=== PATIENT | female | born 1990 | race Caucasian/White ===

== ENCOUNTER 2023-10-26 19:52 | Outpatient (REF) | payer BC, SELFPAY ==
[2023-10-30 11:08] LABS: Age Gdln ACOG Testing Note (.); HPV Aptima Negative (Negative); IGP, Aptima HPV, rfx 16/18,45 Note (.)
== END 2023-10-26 19:53 | disposition home or self-care (01) ==
LOC: LAB 19:52
PROVIDERS: Visit Provider Obstetrics & Gynecology
DX: Z01.419 Encounter for gynecological examination (general) (routine) without abnormal findings (principal)
CPT/HCPCS: 87624; G0145

== ENCOUNTER 2023-11-10 08:26 | Outpatient (OUT) | payer BC, SELFPAY ==
--- NOTE | 2023-11-10 08:29 | US_ITS ---
The [address] [address] Patient Name: CINTHYA MYERS MRN: [id number] date: 1990 Sex: F Assigned Patient Location: [facility] Current Patient Location: [facility] Accession/Order Number: [id number] Exam Date: 11/10/2023 08:30 Report Date: 11/10/2023 09:14 At the request of: LOUIS BACON Procedure: US pelvis w/ transvaginal EXAMINATION: US pelvis w/ transvaginal HISTORY: MENORRHAGIA WITH IRREGULAR CYCLES COMPARISON: No relevant comparison available. FINDINGS: Findings transabdominal and transvaginal images The is normal in size and contour, anteverted, anteflexed uterus measures 11.2 x 4.0 x 5.1 cm. Mildly heterogeneous echotexture with no focal mass. The 2 measures 5 mm, normal. The right ovary is normal measuring 2.0 x 1.7 x 1.4 cm. Normal color Doppler flow. The left ovary measures 3.7 x 2.4 x 2.9 cm. Normal color and Doppler flow. Area of anechoic echogenicity measuring 2.4 x 2.3 x 1.7 cm, simple cyst. No free fluid US/US pelvis w/ transvaginal IMPRESSION: 2.4 cm left ovarian simple cyst Electronically authenticated by: JONA GERARD Date: 11/10/2023 09:14
== END 2023-11-10 08:27 | disposition home or self-care (01) ==
LOC: NOMS 08:26
PROVIDERS: Visit Provider Obstetrics & Gynecology
DX: N92.1 Excessive and frequent menstruation with irregular cycle (principal); G43.821 Menstrual migraine, not intractable, with status migrainosus; N83.292 Other ovarian cyst, left side
CPT/HCPCS: 76830; 76856

== ENCOUNTER 2023-11-25 09:38 | Outpatient (REF) | payer BC, SELFPAY | END 2023-11-25 09:39 | disposition home or self-care (01) | LOC: LAB 09:38 | PROVIDERS: Visit Provider Obstetrics & Gynecology | DX: N92.1 Excessive and frequent menstruation with irregular cycle (principal) | CPT/HCPCS: 88305 ==

== ENCOUNTER 2023-12-10 09:59 | Outpatient (OUT) | payer BC, SELFPAY ==
--- OUTSIDE RECORDS SUMMARY | 2023-12-10 10:24 | XMS_ITS | CCD ---
Author Organization [facility] Care Team Providers Care Energy Auditor Name Role Phone Henrik Vidal Attending Unavailable [employer] IMPORT EXPORT MANAGER - Iain BURDICK Primary Care Prov ider MEGAN, DR RESENDIZ Admitting Unavailable MEGAN, DR RESENDIZ Attending Unavailable [facility], DR CORTES Primary Care Unavailable MEGAN, DR RESENDIZ Consulting Unavailable MD Amor Judd Attending Provider MD Rhonda Limon Primary Care Provider MD Rhonda Limon Primary Care Provider MD Amor Judd Attending Provider [phone] Iain Velarde DNP Primary Care Provider IAIN VELARDE Primary Care Unavailable IAIN MARQUEZ Referring Unavailable CLINIAIN BARRIENTOS Primary Care Unavailable IAIN MARQUEZ Referring Unavailable IAIN MARQUEZ Referring Unavailable CLINIAIN BARRIENTOS Primary Care Unavailable Amor Judd Admitting Unavailable Rhonda Limon Primary Care Unavailable Amor Judd Attending Unavailable Amor Judd Attending Unavailable Amor Judd Admitting Unavailable Rhonda Limon Primary Care Unavailable Amor Judd Attending Unavailable Amor Judd Admitting Unavailable Louis Krishna Attending Unavailable Louis Krishna Admitting Unavailable LOUIS KRISHNA Attending Unavailable LOUIS KRISHNA Attending Unavailable LOUIS KRISHNA Attending Unavailable Louis Krishna Attending Provider Allergies Allergy Classification Reported Allergen(s) Allergy Type Date of Onset Reaction(s) Facility (2 sources) lemon allergenic extract Drug Allergy 07-22-2016 [facility] (1 source) lemon oil Drug Allergy 07-22-2016 [facility] Repository Medications Current Medications Medication Drug Class(es) Dates Sig (Normalized) Sig (Original) Ethinyl Estradiol / Ferrous fumarate / Norethindrone (1 source) Estrogen Start: 11-27-202208/14 1-20 MG-MCG per tablet Ethinyl Estradiol / norgestimate (1 source) Progestin, Estrogen Start: 12-17-2018 take 1 tablet by mouth once daily TRI-LINYAH 0.18/0.215/0.25 MG-35 MCG TABS Take 1 tablet by mouth daily 11 12/17/2018 Active fluocinonide 0.5 mg/ml topical solution (1 source) Corticosteroid Start: 10-28-2022 fluocinonide (LIDEX) 0.05 % external solution APPLY to scalp topically TWICE DAILY 0 10/28/2022 Active ketoconazole 20 mg/ml medicated shampoo (1 source) Azole Antifungal Start: 10-28-2022 ketoconazole (NIZORAL) 2 % shampoo lather on wet hair, leave on 5 (FIVE) minutes, rinse topically 2 (TWO) to 3 (THREE) times a week for 30 days 0 10/28/2022 Active Problems Active Problems Problem Classification Problem Date Documented Date Episodic/Chronic Other aftercare (2 sources) Other fdc (current) drug therapy; Translations: [Other terminal worker (current) drug therapy] Onset: 09-08-2023 Episodic Other inflammatory condition of skin (1 source) Plaque psoriasis; Translations: [Psoriasis vulgaris] Onset: 02-04-2023 02-04-2023 Chronic Other inflammatory condition of skin (2 sources) Psoriasis, unspecified; Translations: [Psoriasis, unspecified] Onset: 09-08-2023 Chronic Other nervous system disorders (1 source) Paresthesia; Translations: [Paresthesia of skin] Episodic Other nutritional; endocrine; and metabolic disorders (1 source) Weight gain; Translations: [Abnormal weight gain] Episodic Other screening for suspected conditions (not mental disorders or infectious disease) (5 sources) Patient encounter status; Translations: [Encounter for screening for cardiovascular disorders] Onset: 07-22-2022 Episodic Unclassified (1 source) Pain in right hand; Translations: [Pain in right hand] Onset: 03-01-2023 Past or Other Problems Problem Classification Problem Date Documented Da te Episodic/Chronic Immunizations and screening for infectious disease (1 source) Raised antibody titer; Translations: [Raised antibody titer] Onset: 06-21-2023 Episodic Nonmalignant breast conditions (2 sources) Pain of breast; Translations: [Mastodynia] Onset: 03-04-2015 03-04-2015 Episodic Other non-traumatic joint disorders (1 source) Pain in unspecified joint; Translations: [Pain in unspecified joint] Onset: 03-01-2023 Episodic Results Test Name Value Interpretation Reference Range Facility [facility] 11-25-2023 L Specimen: [id number] Received: 11/26/23 Status: RYAN Guillen Num: [id number] Spec Type: Surgical Subm Dr: Louis Krishna Tissues: A Endometrium - Biopsy (ENDOMETRIUM BX) Procedures: HE/2, Gross/Micro L4 Age/ Patient Sex Location Account Attending Physician Cinthya Myers 32/F [place] [id number] Louis Krishna SPEC NUM: [id number] RECD: 11/26/23 STATUS: RYAN GUILLEN NUM: [id number] CHLOE: 11/25/[address]: Louis Krishna ENTERED: 11/26/[address] [facility] [address]: Amelia,Lab SPEC TYPE: Surgical DEPT: LINDEN POLANCO ORDERED: HE/2, Gross/Micro L4 ORDERED: HE/2, Gross/Micro L4 Pathological Diagnosis Endometrial biopsy: -Multiple strips of slightly desynchronized endometrium demonstrating small tubular glands with occasional mitotic activity and occasional subnuclear vacuoles, otherwise without any hyperplasia or atypia identified Gross Description Received in formalin, labeled with the patient's name, date of and endometrial BX are multiple colon tissue fragments admixed with mucus measuring in aggregate 2.2 x 0.7 x 0.2 cm, entirely submitted in A1. Clinical history: Menorrhagia with irregular cycles. N92.1 TW CPT Codes 15596 Specimen: [id number] Received: 11/26/23-1256 Status: RYAN Guillen Num: [id number] Spec Type: Surgical Subm Dr: Louis Krishna Tissues: A Endometrium - Biopsy (ENDOMETRIUM BX) Procedures: HE/2, Gross/Micro L4 Patient: Cinthya Myers [id number] (Continued) Signed (signature on file) Jose Juan House MD 11/29/232048 Normal [facility] CBC with Diffon 11-11-2023 Abs. Basophil 0.03 k/uL Normal 0.00-0.20 [facility] Comment on above: Performed By: #### C REG, CDP, LIVP, SED #### [facility] [address] [id number] Leasing Machine Tender: Dev Morley MD Abs.Imm.Granulocyte 0.02 k/uL Normal 0.00-0.30 [facility] Comment on above: Performed By: #### C REG, CDP, LIVP, SED #### [facility] [address] [place] [address] Leasing Machine Tender: Dev Morley MD Abs.Neutrophil (Seg) 6.72 k/uL Normal 2.5-7.0 [facility] Comment on above: Performed By: #### C REG, CDP, LIVP, SED #### [facility] [address] [place] [address] Leasing Machine Tender: Dev Morley MD Basophils/100 WBC (Bld) 0 % Normal 0-2 [facility] Comment on above: Performed By: #### C REG, CDP, LIVP, SED #### [facility] [address] [place] [address] Leasing Machine Tender: Dev Morley MD Eosinophils (Bld) [#/Vol] 0.13 10*3/uL Normal 0.00-0.40 [facility] Comment on above: Performed By: #### C REG, CDP, LIVP, SED #### [facility] [address] [id number] Leasing Machine Tender: Dev Morley MD Eosinophils/100 WBC (Bld) 1 % Normal 0-5 [facility] Comment on above: Performed By: #### C REG, CDP, LIVP, SED #### [facility] [address] [place] [address] Leasing Machine Tender: Dev Morley MD Erythrocyte distribution width (RBC) [Ratio] 12.4 % Normal 12.1-15.2 [facility] Comment on above: Performed By: #### C REG, CDP, LIVP, SED #### [facility] [address] [place] [address] Leasing Machine Tender: Dev Morley MD Hematocrit (Bld) [Volume fraction] 42.4 % Normal 36.0-46.0 [facility] Comment on above: Performed By: #### C REG, CDP, LIVP, SED #### [facility] [address] [id number] Leasing Machine Tender: Dev Morley MD Hemoglobin (Bld) [Mass/Vol] 14.4 g/dL Normal 12.0-16.0 [facility] Comment on above: Performed By: #### C REG, CDP, LIVP, SED #### [facility] [address] [place] [address] Leasing Machine Tender: Dev Morley MD Immature granulocytes/100 WBC (Bld) 0 % Normal 0-5 [facility] Comment on above: Performed By: #### C REG, CDP, LIVP, SED #### [facility] [address] [id number] Leasing Machine Tender: Dev Morley MD Lymphocytes (Bld) [#/Vol] 1.94 10*3/uL Normal 1.00-4.80 [facility] Comment on above: Performed By: #### C REG, CDP, LIVP, SED #### [facility] [address] [id number] Leasing Machine Tender: Dev Morley MD Lymphocytes/100 WBC (Bld) 21 % Normal 15-40 [facility] Comment on above: Performed By: #### C REG, CDP, LIVP, SED #### [facility] [address] [place] [address] Leasing Machine Tender: Dev Morley MD MCH (RBC) [Entitic mass] 28.3 pg Normal 26.0-34.0 [facility] Comment on above: Performed By: #### C REG, CDP, LIVP, SED #### [facility] [address] [place] [address] Leasing Machine Tender: Dev Morley MD MCHC (RBC) [Mass/Vol] 34.0 g/dL Normal 31.0-37.0 [facility] Comment on above: Performed By: #### C REG, CDP, LIVP, SED #### [facility] [address] [place] [address] Leasing Machine Tender: Dev Morley MD MCV (RBC) [Entitic vol] 83.3 fL Normal 80.0-100.0 [facility] Comment on above: Performed By: #### C REG, CDP, LIVP, SED #### [facility] [address] [phone] Leasing Machine Tender: Dev Morley MD Monocytes (Bld) [#/Vol] 0.50 10*3/uL Normal 0.00-1.00 [facility] Comment on above: Performed By: #### C REG, CDP, LIVP, SED #### [facility] [address] [place] [address] Leasing Machine Tender: Dev Morley MD Monocytes/100 WBC (Bld) 5 % Normal 4-8 [facility] Comment on above: Performed By: #### C REG, CDP, LIVP, SED #### [facility] [address] [id number] Leasing Machine Tender: Dev Morley MD Neutrophil (Seg) 73 % Normal 47-75 [facility] Comment on above: Performed By: #### C REG, CDP, LIVP, SED #### [facility] [address] [place] [address] Leasing Machine Tender: Dev Morley MD Platelet mean volume (Bld) [Entitic vol] 9.6 fL Normal 6.0-12.0 [facility] Comment on above: Performed By: #### C REG, CDP, LIVP, SED #### [facility] [address] [place] [address] Leasing Machine Tender: Dev Morley MD Platelets (Bld) [#/Vol] 257 10*3/uL Normal 140-450 [facility] Comment on above: Performed By: #### C REG, CDP, LIVP, SED #### [facility] [address] [place] [address] Leasing Machine Tender: Dev Morley MD RBC (Bld) [#/Vol] 5.09 10*6/uL Normal 4.00-5.20 [facility] Comment on above: Performed By: #### C REG, CDP, LIVP, SED #### [facility] [address] [place] [address] Leasing Machine Tender: Dev Morley MD WBC (Bld) [#/Vol] 9.3 10*3/uL Normal 3.5-11.0 [facility] Comment on above: Performed By: #### C REG, CDP, LIVP, SED #### [facility] [address] [place] [address] Leasing Machine Tender: Dev Morley MD Creatinine w/GFRon 4 Creatinine [Mass/Vol] 0.9 mg/dL Normal 0.5-0.9 [facility] Comment on above: Performed By: #### C REG, CDP, LIVP, SED #### [facility] [address] [place] [address] Leasing Machine Tender: Dev Morley MD GFR/1.73 sq M.predicted among non-blacks MDRD (S/P/Bld) [Vol rate/Area] 88 mL/min/{1.73_m2} Normal >60 [facility] Comment on above: Result Comment: These results are not intended for use in patients <18 years of age. eGFR results are calculated without a race factor using the 2020 CKD-EPI equation. Careful clinical correlation is recommended, particularly when comparing to results calculated using previous equations. The CKD-EPI equation is less accurate in patients with extremes of muscle mass, extra-renal metabolism of creatine, excessive creatine ingestion, or following therapy that affects renal tubular secretion. Performed By: #### C REG, CDP, LIVP, SED #### [facility] [address] [place] [address] Leasing Machine Tender: Dev Morley MD Liver Profileon 11-11-2023 Albumin [Mass/Vol] 4.1 g/dL Normal 3.5-5.2 [facility] Comment on above: Performed By: #### C REG, CDP, LIVP, SED #### [facility] [address] [place] [address] Leasing Machine Tender: Dev Morley MD Alkaline Phos 89 U/L Normal 35-104 [facility] Comment on above: Performed By: #### C REG, CDP, LIVP, SED #### [facility] [address] [place] [address] Leasing Machine Tender: Dev Morley MD ALT [Catalytic activity/Vol] 19 U/L Normal 5-33 [facility] Comment on above: Performed By: #### C REG, CDP, LIVP, SED #### [facility] [address] [place] [address] Leasing Machine Tender: Dev Morley MD AST [Catalytic activity/Vol] 16 U/L Normal <32 [facility] Comment on above: Performed By: #### C REG, CDP, LIVP, SED #### [facility] [address] [place] [address] Leasing Machine Tender: Dev Morley MD Bilirubin [Mass/Vol] 0.3 mg/dL Normal 0.3-1.2 [facility] Comment on above: Performed By: #### C REG, CDP, LIVP, SED #### [facility] [address] [place] [address] Leasing Machine Tender: Dev Morley MD Bilirubin, Indirect Can not be calculated Normal 0.0-1.0 [facility] Comment on above: Performed By: #### C REG, CDP, LIVP, SED #### [facility] [address] [place] [id number] Leasing Machine Tender: Dev Morley MD Bilirubin.indirect [Mass/Vol] mg/dL Normal <0.3 [facility] Comment on above: Performed By: #### C REG, CDP, LIVP, SED #### [facility] [address] [place] [address] Leasing Machine Tender: Dev Morley MD Protein [Mass/Vol] 7.5 g/dL Normal 6.4-8.3 [facility] Comment on above: Performed By: #### C REG, CDP, LIVP, SED #### [facility] [address] [place] [address] Leasing Machine Tender: Dev Morley MD Sedimentation Rateon 024 Sedimentation Rate 31 mm/Hr High 0-20 [facility] Comment on above: Performed By: #### C REG, CDP, LIVP, SED #### [facility] [address] [phone] Leasing Machine Tender: Dev Morley MD CBC with Diffon 09-23-2023 Abs. Basophil 0.02 k/uL Normal 0.00-0.20 [facility] Comment on above: Performed By: #### L IVP, SED, CREG, CDP #### [facility] [address] [phone] Leasing Machine Tender: Dev Morley MD Abs.Imm.Granulocyte 0.01 k/uL Normal 0.00-0.30 [facility] Comment on above: Performed By: #### L IVP, SED, CREG, CDP #### [facility] [address] [phone] Leasing Machine Tender: Dev Morley MD Abs.Neutrophil (Seg) 2.96 k/uL Normal 2.5-7.0 [facility] Comment on above: Performed By: #### L IVP, SED, CREG, CDP #### [facility] [address] [place] [address] Leasing Machine Tender: Dev Morley MD Basophils/100 WBC (Bld) 0 % Normal 0-2 [facility] Comment on above: Performed By: #### L IVP, SED, CREG, CDP #### [facility] [address] [phone] Leasing Machine Tender: Dev Morley MD Eosinophils (Bld) [#/Vol] 0.12 10*3/uL Normal 0.00-0.40 [facility] Comment on above: Performed By: #### L IVP, SED, CREG, CDP #### [facility] [address] [phone] Leasing Machine Tender: Dev Morley MD Eosinophils/100 WBC (Bld) 2 % Normal 0-5 [facility] Comment on above: Performed By: #### L IVP, SED, CREG, CDP #### [facility] [address] [phone] Leasing Machine Tender: Dev Morley MD Erythrocyte distribution width (RBC) [Ratio] 11.8 % Low 12.1-15.2 [facility] Comment on above: Performed By: #### L IVP, SED, CREG, CDP #### [facility] [address] [phone] Leasing Machine Tender: Dev Morley MD Hematocrit (Bld) [Volume fraction] 42.6 % Normal 36.0-46.0 [facility] Comment on above: Performed By: #### L IVP, SED, CREG, CDP #### [facility] [address] [phone] Leasing Machine Tender: Dev Morley MD Hemoglobin (Bld) [Mass/Vol] 14.7 g/dL Normal 12.0-16.0 [facility] Comment on above: Performed By: #### L IVP, SED, CREG, CDP #### [facility] [address] [place], [place] [phone] Leasing Machine Tender: Dev Morley MD Immature granulocytes/100 WBC (Bld) 0 % Normal 0-5 [facility] Comment on above: Performed By: #### L IVP, SED, CREG, CDP #### [facility] [address] [place] [address] Leasing Machine Tender: Dev Morley MD Lymphocytes (Bld) [#/Vol] 1.85 10*3/uL Normal 1.00-4.80 [facility] Comment on above: Performed By: #### L IVP, SED, CREG, CDP #### [facility] [address] [place] [address] Leasing Machine Tender: Dev Morley MD Lymphocytes/100 WBC (Bld) 35 % Normal 15-40 [facility] Comment on above: Performed By: #### L IVP, SED, CREG, CDP #### [facility] [address] [place] [address] Leasing Machine Tender: Dev Morley MD MCH (RBC) [Entitic mass] 28.9 pg Normal 26.0-34.0 [facility] Comment on above: Performed By: #### L IVP, SED, CREG, CDP #### [facility] [address] [phone] Leasing Machine Tender: Dev Morley MD MCHC (RBC) [Mass/Vol] 34.5 g/dL Normal 31.0-37.0 [facility] Comment on above: Performed By: #### L IVP, SED, CREG, CDP #### [facility] [address] [place] [address] Leasing Machine Tender: Dev Morley MD MCV (RBC) [Entitic vol] 83.7 fL Normal 80.0-100.0 [facility] Comment on above: Performed By: #### L IVP, SED, CREG, CDP #### [facility] [address] [place], [place] [id number] Leasing Machine Tender: Dev Morley MD Monocytes (Bld) [#/Vol] 0.41 10*3/uL Normal 0.00-1.00 [facility] Comment on above: Performed By: #### L IVP, SED, CREG, CDP #### [facility] [address] [place] [address] Leasing Machine Tender: Dev Morley MD Monocytes/100 WBC (Bld) 8 % Normal 4-8 [facility] Comment on above: Performed By: #### L IVP, SED, CREG, CDP #### [facility] [address] [place] [address] Leasing Machine Tender: Dev Morley MD Neutrophil (Seg) 55 % Normal 47-75 [facility] Comment on above: Performed By: #### L IVP, SED, CREG, CDP #### [facility] [address] [place] [address] Leasing Machine Tender: Dev Morley MD Platelet mean volume (Bld) [Entitic vol] 9.1 fL Normal 6.0-12.0 [facility] Comment on above: Performed By: #### L IVP, SED, CREG, CDP #### [facility] [address] [place] [address] Leasing Machine Tender: Dev Morley MD Platelets (Bld) [#/Vol] 228 10*3/uL Normal 140-450 [facility] Comment on above: Performed By: #### L IVP, SED, CREG, CDP #### [facility] [address] [facility] [place] [place] [address] Leasing Machine Tender: Dev Morley MD RBC (Bld) [#/Vol] 5.09 10*6/uL Normal 4.00-5.20 [facility] Comment on above: Performed By: #### L IVP, SED, CREG, CDP #### [facility] [address] [place] [address] Leasing Machine Tender: Dev Morley MD WBC (Bld) [#/Vol] 5.4 10*3/uL Normal 3.5-11.0 [facility] Comment on above: Performed By: #### L IVP, SED, CREG, CDP #### [facility] [address] [place] [address] Leasing Machine Tender: Dev Morley MD Creatinine w/GFRon Creatinine [Mass/Vol] 0.8 mg/dL Normal 0.5-0.9 [facility] Comment on above: Performed By: #### C REG, LIVP, SED, CDP #### [facility] [address] [place] [address] Leasing Machine Tender: Dev Morley MD GFR/1.73 sq M.predicted among non-blacks MDRD (S/P/Bld) [Vol rate/Area] mL/min/{1.73_m2} Normal >60 [facility] Comment on above: Result Comment: These results are not intended for use in patients <18 years of age. eGFR results are calculated without a race factor using the 2020 CKD-EPI equation. Careful clinical correlation is recommended, particularly when comparing to results calculated using previous equations. The CKD-EPI equation is less accurate in patients with extremes of muscle mass, extra-renal metabolism of creatine, excessive creatine ingestion, or following therapy that affects renal tubular secretion. Performed By: #### C REG, LIVP, SED, CDP #### [facility] [address] [place] [address] Leasing Machine Tender: Dev Morley MD Liver Profileon 09-23-2023 Albumin [Mass/Vol] 4.0 g/dL Normal 3.5-5.2 [facility] Comment on above: Performed By: #### C REG, LIVP, SED, CDP #### [facility] [address] [place] [address] Leasing Machine Tender: Dev Morley MD Alkaline Phos 92 U/L Normal 35-104 [facility] Comment on above: Performed By: #### C REG, LIVP, SED, CDP #### [facility] [address] [place] [address] Leasing Machine Tender: Dev Morley MD ALT [Catalytic activity/Vol] 32 U/L Normal 5-33 [facility] Comment on above: Performed By: #### C REG, LIVP, SED, CDP #### [facility] [address] [place], [place] [id number] Leasing Machine Tender: Dev Morley MD AST [Catalytic activity/Vol] 25 U/L Normal <32 [facility] Comment on above: Performed By: #### C REG, LIVP, SED, CDP #### [facility] [address] [place], [place] [phone] Leasing Machine Tender: Dev Morley MD Bilirubin [Mass/Vol] 0.2 mg/dL Low 0.3-1.2 [facility] Comment on above: Performed By: #### C REG, LIVP, SED, CDP #### [facility] [address] [place], [place] [phone] Leasing Machine Tender: Dev Morley MD Bilirubin, Indirect Can not be calculated Normal 0.0-1.0 [facility] Comment on above: Performed By: #### C REG, LIVP, SED, CDP #### [facility] [address] [place], [place] [phone] Leasing Machine Tender: Dev Morley MD Bilirubin.indirect [Mass/Vol] mg/dL Normal <0.3 [facility] Comment on above: Performed By: #### C REG, LIVP, SED, CDP #### [facility] [address] [place] [address] Leasing Machine Tender: eDv Morley MD Protein [Mass/Vol] 7.3 g/dL Normal 6.4-8.3 [facility] Comment on above: Performed By: #### C REG, LIVP, SED, CDP #### [facility] [address] [place] [address] Leasing Machine Tender: Dev Morley MD Sedimentation Rateon 024 Sedimentation Rate 16 mm/Hr Normal 0-20 [facility] Comment on above: Performed By: #### L IVP, SED, CREG, CDP #### [facility] [address] [phone] Leasing Machine Tender: Dev Morley MD CBC with Auto Differentialon 09-08-2023 Basophils (Bld) [#/Vol] 0.02 10*3/uL [facility] Basophils/100 WBC (Bld) 0 % 0 - 2 % B [facility] Eosinophils (Bld) [#/Vol] 0.11 10*3/uL [facility] Eosinophils/100 WBC (Bld) 1 % 0 - 5 % [facility] Erythrocyte distribution width (RBC) [Ratio] 12.1 % 12.1 - 15.2 % [facility] Hematocrit (Bld) [Volume fraction] 42.6 % 36.0 - 46.0 % [facility] Hemoglobin (Bld) [Mass/Vol] 14.6 g/dL 12.0 - 16.0 g/dL [facility] Immature granulocytes (Bld) [#/Vol] 0.00 10*3/uL [facility] Immature granulocytes/100 WBC (Bld) 0 % 0 - 5 % [facility] Lymphocytes/100 WBC (Bld) 31 % 15 - 40 % [facility] Lymphocytes/100 WBC (Bld) 2.56 % [facility] MCH (RBC) [Entitic mass] 29.3 pg 26. 0 - 34.0 pg [facility] MCHC (RBC) [Mass/Vol] 34.3 g/dL 31.0 - 37.0 g/dL [facility] MCV (RBC) [Entitic vol] 85.5 fL 80.0 - 100.0 fL [facility] Monocytes/100 WBC (Bld) 6 % 4 - 8 % [facility] Monocytes/100 WBC (Bld) 0.49 % [facility] Neutrophils/100 WBC (Bld) 62 % 47 - 75 % [facility] Platelet mean volume (Bld) [Entitic vol] 9.2 fL 6.0 - 12.0 fL [facility] Platelets (Bld) [#/Vol] 248 10*3/uL [facility] [facility] RBC (Bld) [#/Vol] 4.98 10*6/uL 4.00 - 5.2 0 m/uL [facility] Segmented neutrophils/100 WBC (Bld) 5.18 % [facility] WBC other (Bld) [#/Vol] 8.4 [facility] CBC with Diffon 09-08-2023 Abs. Basophil 0.02 k/uL Normal 0.00-0.20 [facility] Comment on above: Performed By: #### C REG, LIVP, SED, CDP #### [facility] [address] [place] [address] Leasing Machine Tender: Dev Morley MD Abs.Imm.Granulocyte 0.00 k/uL Normal 0.00-0.30 [facility] Comment on above: Performed By: #### C REG, LIVP, SED, CDP #### [facility] [address] [place] [id number] Leasing Machine Tender: Dev Morley MD Abs.Neutrophil (Seg) 5.18 k/uL Normal 2.5-7.0 [facility] Comment on above: Performed By: #### C REG, LIVP, SED, CDP #### [facility] [address] [place] [address] Leasing Machine Tender: Dev Morley MD Basophils/100 WBC (Bld) 0 % Normal 0-2 M [facility] Comment on above: Performed By: #### C REG, LIVP, SED, CDP #### [facility] [address] [place] [id number] Leasing Machine Tender: Dev Morley MD Eosinophils (Bld) [#/Vol] 0.11 10*3/uL Normal 0.00-0.40 [facility] Comment on above: Performed By: #### C REG, LIVP, SED, CDP #### [facility] [address] [place] [address] Leasing Machine Tender: Dev Morley MD Eosinophils/100 WBC (Bld) 1 % Normal 0-5 [facility] Comment on above: Performed By: #### C REG, LIVP, SED, CDP #### [facility] [address] [place] [id number] Leasing Machine Tender: Dev Morley MD Erythrocyte distribution width (RBC) [Ratio] 12.1 % Normal 12.1-15.2 [facility] Comment on above: Performed By: #### C REG, LIVP, SED, CDP #### [facility] [address] [place] [id number] Leasing Machine Tender: Dev Morley MD Hematocrit (Bld) [Volume fraction] 42.6 % Normal 36.0-46.0 [facility] Comment on above: Performed By: #### C REG, LIVP, SED, CDP #### [facility] [address] [place] [phone] Leasing Machine Tender: Dev Morley MD Hemoglobin (Bld) [Mass/Vol] 14.6 g/dL Normal 12.0-16.0 [facility] Comment on above: Performed By: #### C REG, LIVP, SED, CDP #### [facility] [address] [place] [address] Leasing Machine Tender: Dev Morley MD Immature granulocytes/100 WBC (Bld) 0 % Normal 0-5 [facility] Comment on above: Performed By: #### C REG, LIVP, SED, CDP #### [facility] [address] [place] [address] Leasing Machine Tender: Dev Morley MD Lymphocytes (Bld) [#/Vol] 2.56 10*3/uL Normal 1.00-4.80 [facility] Comment on above: Performed By: #### C REG, LIVP, SED, CDP #### [facility] [address] [place] [address] Leasing Machine Tender: Dev Morley MD Lymphocytes/100 WBC (Bld) 31 % Normal 15-40 [facility] Comment on above: Performed By: #### C REG, LIVP, SED, CDP #### [facility] [address] [place] [address] Leasing Machine Tender: Dev Morley MD MCH (RBC) [Entitic mass] 29.3 pg Normal 26.0-34.0 [facility] Comment on above: Performed By: #### C REG, LIVP, SED, CDP #### [facility] [address] [place] [phone] Leasing Machine Tender: Dev Morley MD MCHC (RBC) [Mass/Vol] 34.3 g/dL Normal 31.0-37.0 [facility] Comment on above: Performed By: #### C REG, LIVP, SED, CDP #### [facility] [address] [place] [address] Leasing Machine Tender: Dev Morley MD MCV (RBC) [Entitic vol] 85.5 fL Normal 80.0-100.0 [facility] Comment on above: Performed By: #### C REG, LIVP, SED, CDP #### [facility] [address] [place] [address] Leasing Machine Tender: Dev Morley MD Monocytes (Bld) [#/Vol] 0.49 10*3/uL Normal 0.00-1.00 [facility] Comment on above: Performed By: #### C REG, LIVP, SED, CDP #### [facility] [address] [place] [address] Leasing Machine Tender: Dev Morley MD Monocytes/100 WBC (Bld) 6 % Normal 4-8 M [facility] Comment on above: Performed By: #### C REG, LIVP, SED, CDP #### [facility] [address] [place] [address] Leasing Machine Tender: Dev Morley MD Neutrophil (Seg) 62 % Normal 47-75 [facility] Comment on above: Performed By: #### C REG, LIVP, SED, CDP #### [facility] [address] [place] [phone] Leasing Machine Tender: Dev Morley MD Platelet mean volume (Bld) [Entitic vol] 9.2 fL Normal 6.0-12.0 [facility] Comment on above: Performed By: #### C REG, LIVP, SED, CDP #### [facility] [address] [place] [phone] Leasing Machine Tender: Dev Morley MD Platelets (Bld) [#/Vol] 248 10*3/uL Normal 140-450 [facility] Comment on above: Performed By: #### C REG, LIVP, SED, CDP #### [facility] [address] [place] [phone] Leasing Machine Tender: Dev Morley MD RBC (Bld) [#/Vol] 4.98 10*6/uL Normal 4.00-5.20 [facility] Comment on above: Performed By: #### C REG, LIVP, SED, CDP #### [facility] [address] [place] [address] Leasing Machine Tender: Dev Morley MD WBC (Bld) [#/Vol] 8.4 10*3/uL Normal 3.5-11.0 [facility] Comment on above: Performed By: #### C REG, LIVP, SED, CDP #### [facility] [address] [place] [address] Leasing Machine Tender: Dev Morley MD Creatinineon 09-08-2023 Creatinine [Mass/Vol] 0.8 mg/dL 0.5 - 0.9 mg/dL [facility] GFR/1.73 sq M.predicted MDRD (S/P/Bld) [Vol rate/Area] - PINF [facility] Comment on above: These results are not intended for use in patients <18 years of age. eGFR results are calculated without a race factor using the 2020 CKD-EPI equation. Careful clinical correlation is recommended, particularly when comparing to results calculated using previous equations. The CKD-EPI equation is less accurate in patients with extremes of muscle mass, extra-renal metabolism of creatine, excessive creatine ingestion, or following therapy that affects renal tubular secretion. Creatinine w/GFRon Creatinine [Mass/Vol] 0.8 mg/dL Normal 0.5-0.9 [facility] Comment on above: Performed By: #### C REG, LIVP, SED, CDP #### [facility] [address] [place] [address] Leasing Machine Tender: Dev Morley MD GFR/1.73 sq M.predicted among non-blacks MDRD (S/P/Bld) [Vol rate/Area] mL/min/{1.73_m2} Normal >60 [facility] Comment on above: Result Comment: These results are not intended for use in patients <18 years of age. eGFR results are calculated without a race factor using the 2020 CKD-EPI equation. Careful clinical correlation is recommended, particularly when comparing to results calculated using previous equations. The CKD-EPI equation is less accurate in patients with extremes of muscle mass, extra-renal metabolism of creatine, excessive creatine ingestion, or following therapy that affects renal tubular secretion. Performed By: #### C REG, LIVP, SED, CDP #### [facility] [address] [place] [address] Leasing Machine Tender: Dev Morley MD Hepatic Function Panelon Albumin [Mass/Vol] 4.5 g/dL 3.5 - 5.2 g/dL [facility] ALP [Catalytic activity/Vol] 80 U/L 35 - 104 U/L [facility] ALT [Catalytic activity/Vol] 22 U/L 5 - 33 U/L [facility] AST [Catalytic activity/Vol] 17 U/L NINF - 32 U/L [facility] Bilirubin [Mass/Vol] 0.2 mg/dL Low 0.3 - 1 .2 mg/dL [facility] Bilirubin.direct [Mass/Vol] mg/dL NINF - 0.3 mg/dL [facility] Bilirubin.indirect [Mass/Vol] Can not be calculated 0.0 - 1.0 mg/dL [facility] Interpretation and review of laboratory results Abnormal [facility] Protein [Mass/Vol] 7.7 g/dL 6.4 - 8.3 g/dL [facility] Liver Profileon 09-08-2023 Albumin [Mass/Vol] 4.5 g/dL Normal 3.5-5.2 [facility] Comment on above: Performed By: #### C REG, LIVP, SED, CDP #### [facility] [address] [place] [address] Leasing Machine Tender: Dev Morley MD Alkaline Phos 80 U/L Normal 35-104 [facility] Comment on above: Performed By: #### C REG, LIVP, SED, CDP #### [facility] [address] [place] [address] Leasing Machine Tender: Dev Morley MD ALT [Catalytic activity/Vol] 22 U/L Normal 5-33 [facility] Comment on above: Performed By: #### C REG, LIVP, SED, CDP #### [facility] [address] [place] [address] Leasing Machine Tender: Dev Morley MD AST [Catalytic activity/Vol] 17 U/L Normal <32 [facility] Comment on above: Performed By: #### C REG, LIVP, SED, CDP #### [facility] [address] [place] [address] Leasing Machine Tender: Dev Morley MD Bilirubin [Mass/Vol] 0.2 mg/dL Low 0.3-1.2 [facility] Comment on above: Performed By: #### C REG, LIVP, SED, CDP #### [facility] [address] [place] [address] Leasing Machine Tender: Dev Morley MD Bilirubin, Indirect Can not be calculated Normal 0.0-1.0 [facility] Comment on above: Performed By: #### C REG, LIVP, SED, CDP #### [facility] [address] [place], [place] [phone] Leasing Machine Tender: Dev Morley MD Bilirubin.indirect [Mass/Vol] mg/dL Normal <0.3 [facility] Comment on above: Performed By: #### C REG, LIVP, SED, CDP #### [facility] [address] [place] [address] Leasing Machine Tender: Dev Morley MD Protein [Mass/Vol] 7.7 g/dL Normal 6.4-8.3 [facility] Comment on above: Performed By: #### C REG, LIVP, SED, CDP #### [facility] [address] [place] [address] Leasing Machine Tender: Dev Morley MD No Panel Informationon 09-08 [facility] Sedimentation Rateon 02-14-2 024 Sedimentation Rate 17 mm/Hr Normal 0-20 [facility] Comment on above: Performed By: #### C REG, LIVP, SED, CDP #### [facility] [address] [place] [address] Leasing Machine Tender: Dev Morley MD ESR Photometric method (Bld) [Velocity] 17 [facility] Alanine aminotransferase [En zymatic activity/volume] in Serum or PlasmaOrdered By: Amor Judd on 06-21-2023 ALT [Catalytic activity/Vol] 18 U/L 7-52 [facility] Albumin [Mass/volume] in Ser um or Plasma by Bromocresol green (BCG) dye binding methoOrdered By: Amor Judd on 06-21-2023 Albumin BCG dye [Mass/Vol] 4.4 g/dL 3.5-5.7 [facility] Alkaline phosphatase [Enzyma tic activity/volume] in Serum or PlasmaOrdered By: Amor Judd on 06-21-2023 ALP [Catalytic activity/Vol] 72 U/L 34-104 [facility] Aspartate aminotransferase [ Enzymatic activity/volume] in Serum or PlasmaOrdered By: Amor Judd on 06-21-2023 AST [Catalytic activity/Vol] 15 U/L 13-39 [facility] Automated erythrocytes count in urine sediment (number/area)Ordered By: Amor Judd on 06-21-2023 RBC Auto (Urine sed) [#/Area] 3-4 [HPF] 0-4 [facility] Automated leukocytes count i n urine sediment (number/area)Ordered By: Amor Judd on 06-21-2023 WBC Auto (Urine sed) [#/Area] 1-2 [HPF] 0-4 [facility] Basophils Auto (Bld) [#/Vol] Ordered By: Amor Judd on 06-21-2023 Basophils (Bld) [#/Vol] 0.0 10*3/uL 0.0-0.2 [facility] Basophils/100 WBC Auto (Bld) Ordered By: Amor Judd on 06-21-2023 Basophils/100 WBC (Bld) 0.4 % . [facility] Bilirubin Test strip Ql (U)O rdered By: Amor Judd on 06-21-2023 Bilirubin Ql (U) Negative Negative [facility] Bilirubin.total [Mass/volume ] in Serum or PlasmaOrdered By: Amor Judd on 06-21-2023 Bilirubin [Mass/Vol] 0.2 mg/dL 0.3-1.0 [facility] C reactive protein [Mass/vol ume] in Serum or PlasmaOrdered By: Amor Judd on 06-21-2023 CRP [Mass/Vol] 2.0 mg/dL 0.0-0.5 [facility] C-Reactive Proteinon 023 C-Reactive Protein 2.0 mg/dL High 0.0-0.5 [facility] Comment on above: Result Comment: PERF ORMED BY: [facility] [address] [place] [place] [address] PATHOLOGIST CLEANING [employer] MEMBER LUKAS COLE M.D. Performed By: #### C 4, C3, HCV RX PCR, HBCAB, HBSAB, HBSAG ####[facility] ,#### ESR, CBC, CRP, ADDONUAPLUS, CMP ####[facility] [id number] [place] [address] [facility] Calcium [Mass/volume] in Ser um or PlasmaOrdered By: Amor Judd on 06-21-2023 Calcium [Mass/Vol] 9.3 mg/dL 8.6-10.3 [facility] Carbon dioxide, total [Moles /volume] in Serum or PlasmaOrdered By: Amor Judd on 06-21-2023 CO2 [Moles/Vol] 27.2 mmol/L 21.0-31.0 [facility] Chloride [Moles/volume] in S tamika or PlasmaOrdered By: Amor Judd on 06-21-2023 Chloride [Moles/Vol] 106 mmol/L 98-107 [facility] Color Auto (U)Ordered By: Toyin Judd on 06-21-2023 Color (U) Yellow Yellow [facility] Complement C3on 06-21-2023 Complement C3 180 mg/dL High 82-167 [facility] Comment on above: Result Comment: Perf ormed at: - [facility] [address] [id number] Leasing Machine Tender: Raul Mckeon PhD, Phone: [phone] Performed By: #### C 4, C3, HCV RX PCR, HBCAB, HBSAB, HBSAG ####[facility] ,#### ESR, CBC, CRP, ADDONUAPLUS, CMP ####[address] Complement C4on 06-21-2023 Complement C4 25 mg/dL Normal 12-38 [facility] Comment on above: Result Comment: PERF ORMED BY: [facility] [address] [place] [place] [address] PATHOLOGIST CLE[employer] MEMBER LUKAS COLE M.D. Performed By: #### C 4, C3, HCV RX PCR, HBCAB, HBSAB, HBSAG ####[facility] ,#### ESR, CBC, CRP, ADDONUAPLUS, CMP ####[address] Complete Blood Count Auto Di ffon 06-21-2023 Basophils (Bld) [#/Vol] 0.0 10*3/uL Normal 0.0-0.2 [facility] Comment on above: Performed By: #### C 4, C3, HCV RX PCR, HBCAB, HBSAB, HBSAG ####[facility] ,#### ESR, CBC, CRP, ADDONUAPLUS, CMP ####[address] Basophils/100 WBC (Bld) 0.4 % Normal . [facility] Comment on above: Performed By: #### C 4, C3, HCV RX PCR, HBCAB, HBSAB, HBSAG ####[facility] ,#### ESR, CBC, CRP, ADDONUAPLUS, CMP ####[address] Eosinophils (Bld) [#/Vol] 0.1 10*3/uL Normal 0.0-0.45 [facility] Comment on above: Performed By: #### C 4, C3, HCV RX PCR, HBCAB, HBSAB, HBSAG ####[facility] ,#### ESR, CBC, CRP, ADDONUAPLUS, CMP ####[address] Eosinophils/100 WBC (Bld) 1.2 % Normal . [facility] Comment on above: Performed By: #### C 4, C3, HCV RX PCR, HBCAB, HBSAB, HBSAG ####[facility] ,#### ESR, CBC, CRP, ADDONUAPLUS, CMP ####[address] Erythrocyte distribution width (RBC) [Ratio] 12.6 % Normal 11.9-15.3 [facility] Comment on above: Performed By: #### C 4, C3, HCV RX PCR, HBCAB, HBSAB, HBSAG ####[facility] ,#### ESR, CBC, CRP, ADDONUAPLUS, CMP ####[address] Hematocrit (Bld) [Volume fraction] 40.9 % Normal 34.0-46.4 [facility] Comment on above: Performed By: #### C 4, C3, HCV RX PCR, HBCAB, HBSAB, HBSAG ####[facility] ,#### ESR, CBC, CRP, ADDONUAPLUS, CMP ####[address] Hemoglobin (Bld) [Mass/Vol] 14.0 g/dL Normal 11.8-15.4 [facility] Comment on above: Performed By: #### C 4, C3, HCV RX PCR, HBCAB, HBSAB, HBSAG ####[facility] ,#### ESR, CBC, CRP, ADDONUAPLUS, CMP ####[address] Lymphocytes (Bld) [#/Vol] 2.0 10*3/uL Normal 1.00-4.8 [facility] Comment on above: Performed By: #### C 4, C3, HCV RX PCR, HBCAB, HBSAB, HBSAG ####[facility] ,#### ESR, CBC, CRP, ADDONUAPLUS, CMP ####[address] Lymphocytes/100 WBC (Bld) 22.1 % Normal . [facility] Comment on above: Performed By: #### C 4, C3, HCV RX PCR, HBCAB, HBSAB, HBSAG ####[facility] ,#### ESR, CBC, CRP, ADDONUAPLUS, CMP ####[address] MCH (RBC) [Entitic mass] 29.6 pg Normal 24.7-34.3 [facility] Comment on above: Performed By: #### C 4, C3, HCV RX PCR, HBCAB, HBSAB, HBSAG ####[facility] ,#### ESR, CBC, CRP, ADDONUAPLUS, CMP ####[address] MCV (RBC) [Entitic vol] 86.2 fL Normal 80-100 [facility] Comment on above: Performed By: #### C 4, C3, HCV RX PCR, HBCAB, HBSAB, HBSAG ####[facility] ,#### ESR, CBC, CRP, ADDONUAPLUS, CMP ####[address] Mean Corpuscular HGB Conc 34.3 g/dL Normal 32.0-35.0 [facility] Comment on above: Performed By: #### C 4, C3, HCV RX PCR, HBCAB, HBSAB, HBSAG ####[facility] ,#### ESR, CBC, CRP, ADDONUAPLUS, CMP ####[address] Monocytes (Bld) [#/Vol] 0.4 10*3/uL Normal 0.0-0.8 [facility] Comment on above: Performed By: #### C 4, C3, HCV RX PCR, HBCAB, HBSAB, HBSAG ####[facility] ,#### ESR, CBC, CRP, ADDONUAPLUS, CMP ####[address] Monocytes/100 WBC (Bld) 4.3 % Normal . [facility] Comment on above: Performed By: #### C 4, C3, HCV RX PCR, HBCAB, HBSAB, HBSAG ####[facility] ,#### ESR, CBC, CRP, ADDONUAPLUS, CMP ####[address] Neutrophils (Bld) [#/Vol] 6.4 10*3/uL Normal 1.8-7.7 [facility] Comment on above: Performed By: #### C 4, C3, HCV RX PCR, HBCAB, HBSAB, HBSAG ####[facility] ,#### ESR, CBC, CRP, ADDONUAPLUS, CMP ####[address] Neutrophils/100 WBC (Bld) 72.0 % Normal . [facility] Comment on above: Performed By: #### C 4, C3, HCV RX PCR, HBCAB, HBSAB, HBSAG ####[facility] ,#### ESR, CBC, CRP, ADDONUAPLUS, CMP ####[address] NRBC% 0.1 /100{WBC} Normal 0-0.5 [facility] Comment on above: Performed By: #### C 4, C3, HCV RX PCR, HBCAB, HBSAB, HBSAG ####[facility] ,#### ESR, CBC, CRP, ADDONUAPLUS, CMP ####[address] Platelet mean volume (Bld) [Entitic vol] 7.9 fL Normal 6.3-10.7 [facility] Comment on above: Performed By: #### C 4, C3, HCV RX PCR, HBCAB, HBSAB, HBSAG ####[facility] ,#### ESR, CBC, CRP, ADDONUAPLUS, CMP ####[address] Platelets (Bld) [#/Vol] 310 10*3/uL Normal 150-450 [facility] Comment on above: Performed By: #### C 4, C3, HCV RX PCR, HBCAB, HBSAB, HBSAG ####[facility] ,#### ESR, CBC, CRP, ADDONUAPLUS, CMP ####[address] RBC (Bld) [#/Vol] 4.75 10*6/uL Normal 3.60-5.00 [facility] Comment on above: Performed By: #### C 4, C3, HCV RX PCR, HBCAB, HBSAB, HBSAG ####[facility] ,#### ESR, CBC, CRP, ADDONUAPLUS, CMP ####[address] WBC (Bld) [#/Vol] 8.9 10*3/uL Normal 3.8-11.6 [facility] Comment on above: Performed By: #### C 4, C3, HCV RX PCR, HBCAB, HBSAB, HBSAG ####[facility] ,#### ESR, CBC, CRP, ADDONUAPLUS, CMP ####[address] Comprehensive Metabolic Pane [facility] 06-21-2023 Albumin [Mass/Vol] 4.4 g/dL Normal 3.5-5.7 [facility] Comment on above: Performed By: #### C 4, C3, HCV RX PCR, HBCAB, HBSAB, HBSAG #### [facility] , #### ESR, CBC, CRP, ADDONUAPLUS, CMP #### [address] Albumin/Globulin [Mass ratio] 1.6 {ratio} Normal [facility] Comment on above: Performed By: #### C 4, C3, HCV RX PCR, HBCAB, HBSAB, HBSAG #### [facility] , #### ESR, CBC, CRP, ADDONUAPLUS, CMP #### [address] ALP [Catalytic activity/Vol] 72 U/L Normal 34-104 [facility] Comment on above: Performed By: #### C 4, C3, HCV RX PCR, HBCAB, HBSAB, HBSAG #### [facility] , #### ESR, CBC, CRP, ADDONUAPLUS, CMP #### [address] ALT [Catalytic activity/Vol] 18 U/L Normal 7-52 [facility] Comment on above: Performed By: #### C 4, C3, HCV RX PCR, HBCAB, HBSAB, HBSAG #### [facility] , #### ESR, CBC, CRP, ADDONUAPLUS, CMP #### [address] Anion gap [Moles/Vol] 9.8 mmol/L Normal 6.0-15.0 [facility] Comment on above: Performed By: #### C 4, C3, HCV RX PCR, HBCAB, HBSAB, HBSAG #### [facility] , #### ESR, CBC, CRP, ADDONUAPLUS, CMP #### [address] AST [Catalytic activity/Vol] 15 U/L Normal 13-39 [facility] Comment on above: Performed By: #### C 4, C3, HCV RX PCR, HBCAB, HBSAB, HBSAG #### [facility] , #### ESR, CBC, CRP, ADDONUAPLUS, CMP #### [address] Bilirubin [Mass/Vol] 0.2 mg/dL Low 0.3-1.0 [facility] Comment on above: Performed By: #### C 4, C3, HCV RX PCR, HBCAB, HBSAB, HBSAG #### [facility] , #### ESR, CBC, CRP, ADDONUAPLUS, CMP #### [address] Calcium [Mass/Vol] 9.3 mg/dL Normal 8.6-10.3 [facility] Comment on above: Performed By: #### C 4, C3, HCV RX PCR, HBCAB, HBSAB, HBSAG #### [facility] , #### ESR, CBC, CRP, ADDONUAPLUS, CMP #### [address] Chloride [Moles/Vol] 106 mmol/L Normal 98-107 [facility] Comment on above: Performed By: #### C 4, C3, HCV RX PCR, HBCAB, HBSAB, HBSAG #### [facility] , #### ESR, CBC, CRP, ADDONUAPLUS, CMP #### [address] CO2 [Moles/Vol] 27.2 mmol/L Normal 21.0-31.0 [facility] Comment on above: Performed By: #### C 4, C3, HCV RX PCR, HBCAB, HBSAB, HBSAG #### [facility] , #### ESR, CBC, CRP, ADDONUAPLUS, CMP #### [address] Creatinine [Mass/Vol] 0.84 mg/dL Normal 0.60-1.20 [facility] Comment on above: Performed By: #### C 4, C3, HCV RX PCR, HBCAB, HBSAB, HBSAG #### [facility] , #### ESR, CBC, CRP, ADDONUAPLUS, CMP #### [address] GFR/1.73 sq M.predicted MDRD (S/P/Bld) [Vol rate/Area] mL/min/{1.73_m2} Normal [facility] Comment on above: Performed By: #### C 4, C3, HCV RX PCR, HBCAB, HBSAB, HBSAG #### [facility] , #### ESR, CBC, CRP, ADDONUAPLUS, CMP #### [address] Globulin (S) [Mass/Vol] 2.7 g/dL Normal [facility] Comment on above: Performed By: #### C 4, C3, HCV RX PCR, HBCAB, HBSAB, HBSAG #### [facility] , #### ESR, CBC, CRP, ADDONUAPLUS, CMP #### [address] Glucose [Mass/Vol] 92 mg/dL Normal 70-100 [facility] Comment on above: Result Comment: [facility] Glucose Reference Range is dependent on time and content of last meal. Glucose of more than 200 mg/dL in a nonstressed, ambulatory subject supports the diagnosis of Diabetes Mellitus. ADA recommended reference range Performed By: #### C 4, C3, HCV RX PCR, HBCAB, HBSAB, HBSAG #### [facility] , #### ESR, CBC, CRP, ADDONUAPLUS, CMP #### [address] Potassium [Moles/Vol] 4.0 mmol/L Normal 3.5-5.1 [facility] Comment on above: Performed By: #### C 4, C3, HCV RX PCR, HBCAB, HBSAB, HBSAG #### [facility] , #### ESR, CBC, CRP, ADDONUAPLUS, CMP #### [address] Protein [Mass/Vol] 7.1 g/dL Normal 6.4-8.9 [facility] Comment on above: Performed By: #### C 4, C3, HCV RX PCR, HBCAB, HBSAB, HBSAG #### [facility] , #### ESR, CBC, CRP, ADDONUAPLUS, CMP #### [address] Sodium [Moles/Vol] 139 mmol/L Normal 136-145 [facility] Comment on above: Performed By: #### C 4, C3, HCV RX PCR, HBCAB, HBSAB, HBSAG #### [facility] , #### ESR, CBC, CRP, ADDONUAPLUS, CMP #### [address] Urea nitrogen [Mass/Vol] 14 mg/dL Normal 7-25 [facility] Comment on above: Performed By: #### C 4, C3, HCV RX PCR, HBCAB, HBSAB, HBSAG #### [facility] , #### ESR, CBC, CRP, ADDONUAPLUS, CMP #### [address] Creatinine [Mass/volume] in Serum or PlasmaOrdered By: Amor Judd on 06-21-2023 Creatinine [Mass/Vol] 0.84 mg/dL 0.60-1.20 [facility]stick [facility] Microscopicon 1 08-21-2022 Appearance (U) Clear Normal Clear [facility] Comment on above: Order Comment: Name Collection Type:: Clean-Voided Midstream Performed By: #### C 4, C3, HCV RX PCR, HBCAB, HBSAB, HBSAG #### [facility] , #### ESR, CBC, CRP, ADDONUAPLUS, CMP #### [address] Bacteria,Urine 1+ High None Seen [facility] Comment on above: Order Comment: Name Collection Type:: Clean-Voided Midstream Performed By: #### C 4, C3, HCV RX PCR, HBCAB, HBSAB, HBSAG #### [facility] , #### ESR, CBC, CRP, ADDONUAPLUS, CMP #### [address] Bilirubin,Urine Negative Normal Negative [facility] Comment on above: Order Comment: Name Collection Type:: Clean-Voided Midstream Performed By: #### C 4, C3, HCV RX PCR, HBCAB, HBSAB, HBSAG #### [facility] , #### ESR, CBC, CRP, ADDONUAPLUS, CMP #### [address] Color (U) Yellow Normal Yellow [facility] Comment on above: Order Comment: Name Collection Type:: Clean-Voided Midstream Performed By: #### C 4, C3, HCV RX PCR, HBCAB, HBSAB, HBSAG #### [facility] , #### ESR, CBC, CRP, ADDONUAPLUS, CMP #### [address] Glucose Ql (U) Normal Normal Normal [facility] Comment on above: Order Comment: Name Collection Type:: Clean-Voided Midstream Performed By: #### C 4, C3, HCV RX PCR, HBCAB, HBSAB, HBSAG #### [facility] , #### ESR, CBC, CRP, ADDONUAPLUS, CMP #### [address] Hyaline Casts,Urine 0-8 Normal 0-8 [facility] Comment on above: Order Comment: Name Collection Type:: Clean-Voided Midstream Result Comment: PERF ORMED BY: [place] [address] PATHOLOGIST CLEANING TE[employer] MEMBER LUKAS COLE M.D. Performed By: #### C 4, C3, HCV RX PCR, HBCAB, HBSAB, HBSAG #### [facility] , #### ESR, CBC, CRP, ADDONUAPLUS, CMP #### [address] Ketones Ql (U) Negative Normal Negative [facility] Comment on above: Order Comment: Name Collection Type:: Clean-Voided Midstream Performed By: #### C 4, C3, HCV RX PCR, HBCAB, HBSAB, HBSAG #### [facility] , #### ESR, CBC, CRP, ADDONUAPLUS, CMP #### [address] Leukocyte esterase Test strip Ql (U) Negative Normal Negative [facility] Comment on above: Order Comment: Name Collection Type:: Clean-Voided Midstream Performed By: #### C 4, C3, HCV RX PCR, HBCAB, HBSAB, HBSAG #### [facility] , #### ESR, CBC, CRP, ADDONUAPLUS, CMP #### [address] Nitrite,Urine Negative Normal Negative [facility] Comment on above: Order Comment: Name Collection Type:: Clean-Voided Midstream Performed By: #### C 4, C3, HCV RX PCR, HBCAB, HBSAB, HBSAG #### [facility] , #### ESR, CBC, CRP, ADDONUAPLUS, CMP #### [address] Occult Blood,Urine Negative Normal Negative [facility] Comment on above: Order Comment: Name Collection Type:: Clean-Voided Midstream Performed By: #### C 4, C3, HCV RX PCR, HBCAB, HBSAB, HBSAG #### [facility] , #### ESR, CBC, CRP, ADDONUAPLUS, CMP #### [address] pH (U) 7.0 [pH] Normal 5.0-9.0 [facility] Comment on above: Order Comment: Name Collection Type:: Clean-Voided Midstream Performed By: #### C 4, C3, HCV RX PCR, HBCAB, HBSAB, HBSAG #### [facility] , #### ESR, CBC, CRP, ADDONUAPLUS, CMP #### [address] Protein,Urine Negative Normal Negative [facility] Comment on above: Order Comment: Name Collection Type:: Clean-Voided Midstream Performed By: #### C 4, C3, HCV RX PCR, HBCAB, HBSAB, HBSAG #### [facility] , #### ESR, CBC, CRP, ADDONUAPLUS, CMP #### [address] RBC,Urine 3-4 Normal 0-4 [facility] Comment on above: Order Comment: Name Collection Type:: Clean-Voided Midstream Performed By: #### C 4, C3, HCV RX PCR, HBCAB, HBSAB, HBSAG #### [facility] , #### ESR, CBC, CRP, ADDONUAPLUS, CMP #### [address] Specificy [place],Urine 1.021 Normal 1.001-1.030 [facility] Comment on above: Order Comment: Name Collection Type:: Clean-Voided Midstream Performed By: #### C 4, C3, HCV RX PCR, HBCAB, HBSAB, HBSAG #### [facility] , #### ESR, CBC, CRP, ADDONUAPLUS, CMP #### [address] Squamous Epithelial Cell,Urine 0-1 Normal 0-2 [facility] Comment on above: Order Comment: Name Collection Type:: Clean-Voided Midstream Performed By: #### C 4, C3, HCV RX PCR, HBCAB, HBSAB, HBSAG #### [facility] , #### ESR, CBC, CRP, ADDONUAPLUS, CMP #### [address] Urobilinogen,Urine Normal Normal Normal [facility] Comment on above: Order Comment: Name Collection Type:: Clean-Voided Midstream Performed By: #### C 4, C3, HCV RX PCR, HBCAB, HBSAB, HBSAG #### [facility] , #### ESR, CBC, CRP, ADDONUAPLUS, CMP #### [address] WBC,Urine 1-2 Normal 0-4 [facility] Comment on above: Order Comment: Name Collection Type:: Clean-Voided Midstream Performed By: #### C 4, C3, HCV RX PCR, HBCAB, HBSAB, HBSAG #### [facility] , #### ESR, CBC, CRP, ADDONUAPLUS, CMP #### [address] Eosinophils Auto (Bld) [#/Vo l]Ordered By: Amor Judd on 06-21-2023 Eosinophils (Bld) [#/Vol] 0.1 10*3/uL 0.0-0.45 [facility] Eosinophils/100 WBC Auto (Bl d)Ordered By: Amor Judd on 06-21-2023 Eosinophils/100 WBC (Bld) 1.2 % . [facility] Erythrocyte Sedimentation Ra gloria 06-21-2023 ESR (Bld) [Velocity] 23 mm/h High 0-19 [facility] Comment on above: Result Comment: PERF ORMED BY: [place] [address] PATHOLOGIST CLEANING [employer]BER LUKAS COLE M.D. Performed By: #### C 4, C3, HCV RX PCR, HBCAB, HBSAB, HBSAG ####[facility] ,#### ESR, CBC, CRP, ADDONUAPLUS, CMP ####[facility] Erythrocyte distribution wid th Auto (RBC) [Ratio]Ordered By: Amor Judd on 06-21-2023 Erythrocyte distribution width (RBC) [Ratio] 12.6 % 11.9-15.3 [facility] Erythrocyte sedimentation ra te by Photometric methodOrdered By: Amor Judd on 06-21-2023 ESR Photometric method (Bld) [Velocity] 23 mm/hr 0-19 [facility] Globulin Calc (S) [Mass/Vol] Ordered By: Amor Judd on 06-21-2023 Globulin (S) [Mass/Vol] 2.7 g/dL [facility] Glucose [Mass/volume] in Ser um or PlasmaOrdered By: Amor Judd on 06-21-2023 Glucose [Mass/Vol] 92 mg/dL 70-100 [facility] Comment on above: ADA recommended refe rence rangeRandom Glucose Reference Range is dependent on time and content of last meal. Glucose of more than 200 mg/dL in a nonstressed, ambulatory subject supports the diagnosis of Diabetes Mellitus. Hematocrit Auto (Bld) [Volum e fraction]Ordered By: Amor Judd on 06-21-2023 Hematocrit (Bld) [Volume fraction] 40.9 % 34.0-46.4 [facility] Hemoglobin [Mass/volume] in BloodOrdered By: Amro Judd on 06-21-2023 Hemoglobin (Bld) [Mass/Vol] 14.0 g/dL 11.8-15.4 [facility] Hep C Ab wRfx to Qnt PCRon 1 08-21-2022 Hepatitis C Virus Antibody Non-Reactive Normal Non Reactive [facility] Comment on above: Performed By: #### C 4, C3, HCV RX PCR, HBCAB, HBSAB, HBSAG ####[facility] ,#### ESR, CBC, CRP, ADDONUAPLUS, CMP ####[facility] [address] Interpretation Hepatitis C Normal . [facility] Comment on above: Result Comment: Not infected with HCV unless early or acute infection is suspected (which may be delayed in an immunocompromised individual), or other evidence exists to indicate HCV infection. Performed By: #### C 4, C3, HCV RX PCR, HBCAB, HBSAB, HBSAG ####[facility] ,#### ESR, CBC, CRP, ADDONUAPLUS, CMP ####[address] Hepatitis B Core Antibodyon 06-21-2023 Hepatitis B Core Antibody Negative Normal Negative [facility] Comment on above: Result Comment: Perf ormed at: [facility] [address] [id number] Leasing Machine Tender: Raul Mckeon PhD, Phone: [phone] Performed By: #### C 4, C3, HCV RX PCR, HBCAB, HBSAB, HBSAG ####[facility] ,#### ESR, CBC, CRP, ADDONUAPLUS, CMP ####[address] Hepatitis B Surface Antibody on 06-21-2023 Hepatitis B Surface Antibody Non-Reactive Normal . [facility] Comment on above: Result Comment: Non Reactive: Inconsistent with immunity, less than 10 mIU/mL Reactive: Consistent with immunity, greater than 9.9 mIU/mL Performed By: #### C 4, C3, HCV RX PCR, HBCAB, HBSAB, HBSAG ####[facility] ,#### ESR, CBC, CRP, ADDONUAPLUS, CMP ####[address] Hepatitis B Surface Antigeno n 06-21-2023 HBsAg Screen Negative Normal Negative [facility] Comment on above: Result Comment: PERF ORMED BY: [facility] [address] [place] [address] PATHOLOGIST CLE[employer]BER LUKAS COLE M.D. Performed By: #### C 4, C3, HCV RX PCR, HBCAB, HBSAB, HBSAG ####[facility] ,#### ESR, CBC, CRP, ADDONUAPLUS, CMP ####[facility] [id number] [id number] [facility] Ketones Auto test strip (U) [Mass/Vol]Ordered By: Amor Judd on 06-21-2023 Ketones (U) [Mass/Vol] Negative Negative [facility] Laboratory - UrinalysisOrder ed By: Amor Judd on 06-21-2023 Hyaline casts LM Ql (Urine sed) 0-8 [LPF] 0-8 [facility] Leukocytes [#/volume] correc francisco j for nucleated erythrocytes in Blood by Automated counOrdered By: Amor Judd on 06-21-2023 WBC corrected for nucl RBC Auto (Bld) [#/Vol] 8.9 10*3/uL 3.8-11.6 [facility] Lymphocytes Auto (Bld) [#/Vo l]Ordered By: Amor Judd on 06-21-2023 Lymphocytes (Bld) [#/Vol] 2.0 10*3/uL 1.00-4.8 [facility] Lymphocytes/100 WBC Auto (Bl d)Ordered By: Amor Judd on 06-21-2023 Lymphocytes/100 WBC (Bld) 22.1 % . [facility] MCH Auto (RBC) [Entitic mass ]Ordered By: Amor Judd on 06-21-2023 MCH (RBC) [Entitic mass] 29.6 pg 24.7-34.3 [facility] MCHC Auto (RBC) [Mass/Vol]Or dered By: Amor Judd on 06-21-2023 MCHC (RBC) [Mass/Vol] 34.3 g/dL 32.0-35.0 [facility] MCV Auto (RBC) [Entitic vol] Ordered By: Amor Judd on 06-21-2023 MCV (RBC) [Entitic vol] 86.2 fL 80-100 [facility] Monocytes Auto (Bld) [#/Vol] Ordered By: Amor Judd on 06-21-2023 Monocytes (Bld) [#/Vol] 0.4 10*3/uL 0.0-0.8 [facility] Monocytes/100 WBC Auto (Bld) Ordered By: Amor Judd on 06-21-2023 Monocytes/100 WBC (Bld) 4.3 % . [facility] Neutrophils Auto (Bld) [#/Vo l]Ordered By: Amor Judd on 06-21-2023 Neutrophils (Bld) [#/Vol] 6.4 10*3/uL 1.8-7.7 [facility] Neutrophils/100 WBC Auto (Bl d)Ordered By: Amor Judd on 06-21-2023 Neutrophils/100 WBC (Bld) 72.0 % . [facility] Nitrite Test strip Ql (U)Ord ered By: Amor Judd on 06-21-2023 Nitrite Ql (U) Negative Negative [facility] No Panel InformationOrdered By: Amor Judd on 06-21-2023 Estimated GFR (CKD-EPI) > 60.0 mL/Min [facility] Creatinine Clearance (Chem N/A [facility] Nucleated erythrocytes [Pres ence] in Blood by Automated countOrdered By: Amor Judd on 06-21-2023 Nucleated RBC Auto Ql (Bld) 0.1 /100{WBC} 0-0.5 [facility] Platelet mean volume Auto (B ld) [Entitic vol]Ordered By: Amor Judd on 06-21-2023 Platelet mean volume (Bld) [Entitic vol] 7.9 fL 6.3-10.7 [facility] Platelets Auto (Bld) [#/Vol] Ordered By: Amor Judd on 06-21-2023 Platelets (Bld) [#/Vol] 310 10*3/uL 150-450 [facility] Potassium [Moles/volume] in Serum or PlasmaOrdered By: Amor Judd on 06-21-2023 Potassium [Moles/Vol] 4.0 mmol/L 3.5-5.1 [facility] Protein Auto test strip (U) [Mass/Vol]Ordered By: Amor Judd on 06-21-2023 Protein (U) [Mass/Vol] Negative Negative [facility] Protein [Mass/volume] in Ser um or PlasmaOrdered By: Amor Judd on 06-21-2023 Protein [Mass/Vol] 7.1 g/dL 6.4-8.9 [facility] RBC Auto (Bld) [#/Vol]Ordere d By: Amor Judd on 06-21-2023 RBC (Bld) [#/Vol] 4.75 10*6/uL 3.60-5.00 [facility] Serum or plasma albumin/glob ulin mass ratioOrdered By: Amor Judd on 06-21-2023 Albumin/Globulin [Mass ratio] 1.6 {ratio} [facility] Serum or plasma anion gap de terminationOrdered By: Amor Judd on 06-21-2023 Anion gap [Moles/Vol] 9.8 mmol/L 6.0-15.0 [facility] Sodium [Moles/volume] in Ser um or PlasmaOrdered By: Amor Judd on 06-21-2023 Sodium [Moles/Vol] 139 mmol/L 136-145 [facility] Specific gravity Auto test s trip (U) [Rel density]Ordered By: Amor Judd on 06-21-2023 Specific gravity (U) [Rel density] 1.021 1.001-1.030 [facility] Squamous epithelial cells de tection in urine sediment by light microscopyOrdered By: Amor Judd on 06-21-2023 Epithelial cells.squamous LM Ql (Urine sed) 0-1 [HPF] 0-2 [facility] Urea nitrogen [Mass/volume] in Serum or PlasmaOrdered By: Amor Judd on 06-21-2023 Urea nitrogen [Mass/Vol] 14 mg/dL 7-25 [facility] Urine bacteria detection by automated methodOrdered By: Amor Judd on 06-21-2023 Bacteria Auto Ql (U) 1+ None Seen [facility] Urine clarity by refractomet ry automatedOrdered By: Amor Judd on 06-21-2023 Clarity Refractometry automated (U) Clear Clear [facility] Urine glucose measurement by automated test strip (mass/volume)Ordered By: Amor Judd on 11-27-2023 Glucose Auto test strip (U) [Mass/Vol] Normal mg/dL Normal [facility] Urine hemoglobin detection b y automated test stripOrdered By: Amor Judd on 06-21-2023 Hemoglobin Auto test strip Ql (U) Negative Negative [facility] Urine leukocyte esterase det ection by automated test stripOrdered By: Amor Judd on 06-21-2023 Leukocyte esterase Auto test strip Ql (U) Negative Negative [facility] Urobilinogen Auto test strip (U) [Mass/Vol]Ordered By: Amor Judd on 06-21-2023 Urobilinogen (U) [Mass/Vol] Normal mg/dL Normal [facility] WBC Auto (Bld) [#/Vol]Ordere d By: Amor Judd on 06-21-2023 WBC (Bld) [#/Vol] 8.9 10*3/uL 3.8-11.6 [facility] pH Auto test strip (U)Ordere d By: Amor Judd on 06-21-2023 pH (U) 7.0 [pH] 5.0-9.0 [facility] AKHIL Antinuclear Antibodieson 03-01-2023 Antinuclear Abs, IFA Positive Critically abnormal . [facility] Comment on above: Result Comment: Nega tive <1:80 Borderline 1:80 Positive >1:80 Performed By: #### C RP, ESR, CMP, CBC #### [facility] [address] [place] [address] [place] #### AKHIL #### [facility] , Homogeneous Pattern 1:160 High . [facility] Comment on above: Result Comment: ICAP nomenclature: [id number] Performed By: #### C RP, ESR, CMP, CBC #### [facility] [address] [place] [address] [place] #### AKHIL #### [facility] , Note 1 Normal . [facility] Comment on above: Result Comment: For more information about Hep-2 cell patterns use ANApatterns.org, the official website for the International Consensus on Antinuclear Antibody (AKHIL) Patterns (ICAP). A positive AKHIL result may occur in healthy individuals (low titer) or be associated with a variety of diseases. See interpretation chart which is not all inclusive: Pattern Antigen Detected Suggested Disease Association Homogeneous DNA(ds,ss), SLE - High titers Nucleosomes, Histones Drug-induced SLE Speckled Sm, SUPPORT DBA, SCL-70, SLE,MCTD,PSS (diffuse form), SS-A/SS-B Sjogrens Nucleolar SCL-70, PM-1/SCL High titers Scleroderma, PM/DM Centromere Centromere PSS (limited form) w/Crest syndrome variable Nuclear Dot [id number] Primary Biliary Cirrhosis Nuclear GP210, Primary Biliary Cirrhosis Membrane rodger A,B,C Performed at: - [facility] [address] [id number] Leasing Machine Tender: Raul Mckeon PhD, Phone: [phone] PERFORMED BY: [place] [address] PATHOLOGIST CLEANING TE[employer] MEMBER LUKAS COLE M.D. Performed By: #### C RP, ESR, CMP, CBC #### [address] #### AKHIL #### [facility] , Alanine aminotransferase [En zymatic activity/volume] in Serum or PlasmaOrdered By: Amor Judd on 03-01-2023 ALT [Catalytic activity/Vol] 16 U/L 7-52 [facility] Albumin [Mass/volume] in Ser um or Plasma by Bromocresol green (BCG) dye binding methoOrdered By: Amor Judd on 03-01-2023 Albumin BCG dye [Mass/Vol] 4.6 g/dL 3.5-5.7 [facility] Alkaline phosphatase [Enzyma tic activity/volume] in Serum or PlasmaOrdered By: Amor Judd on 03-01-2023 ALP [Catalytic activity/Vol] 75 U/L 34-104 [facility] Aspartate aminotransferase [ Enzymatic activity/volume] in Serum or PlasmaOrdered By: Amor Judd on 03-01-2023 AST [Catalytic activity/Vol] 16 U/L 13-39 [facility] Basophils Auto (Bld) [#/Vol] Ordered By: Amor Judd on 03-01-2023 Basophils (Bld) [#/Vol] 0.0 10*3/uL 0.0-0.2 [facility] Basophils/100 WBC Auto (Bld) Ordered By: Amor Judd on 03-01-2023 Basophils/100 WBC (Bld) 0.3 % . [facility] Bilirubin.total [Mass/volume ] in Serum or PlasmaOrdered By: Amor Judd on 03-01-2023 Bilirubin [Mass/Vol] 0.3 mg/dL 0.3-1.0 [facility] C reactive protein [Mass/vol ume] in Serum or PlasmaOrdered By: Amor Judd on 03-01-2023 CRP [Mass/Vol] 1.9 mg/dL 0.0-0.5 [facility] C-Reactive Proteinon 023 C-Reactive Protein 1.9 mg/dL High 0.0-0.5 [facility] Comment on above: Result Comment: PERF ORMED BY: [place] [address] PATHOLOGIST CLEANING TE[employer] MEMBER LUKAS COLE M.D. Performed By: #### C RP, ESR, CMP, CBC #### [address] #### AKHIL #### [facility] , Calcium [Mass/volume] in Ser um or PlasmaOrdered By: Amor Judd on 03-01-2023 Calcium [Mass/Vol] 9.7 mg/dL 8.6-10.3 [facility] Carbon dioxide, total [Moles /volume] in Serum or PlasmaOrdered By: Amor Judd on 03-01-2023 CO2 [Moles/Vol] 26.7 mmol/L 21.0-31.0 [facility] Chloride [Moles/volume] in S tamika or PlasmaOrdered By: Amor Judd on 03-01-2023 Chloride [Moles/Vol] 104 mmol/L 98-107 [facility] Complete Blood Count Auto Di ffon 03-01-2023 Basophils (Bld) [#/Vol] 0.0 10*3/uL Normal 0.0-0.2 [facility] Comment on above: Performed By: #### C RP, ESR, CMP, CBC #### [facility] [address] [place] [address] [place] #### AKHIL #### [facility] , Basophils/100 WBC (Bld) 0.3 % Normal . [facility] Comment on above: Performed By: #### C RP, ESR, CMP, CBC #### [address] #### AKHIL #### [facility] , Eosinophils (Bld) [#/Vol] 0.1 10*3/uL Normal 0.0-0.45 [facility] Comment on above: Performed By: #### C RP, ESR, CMP, CBC #### [place] [address] [place] #### AKHIL #### [facility] , Eosinophils/100 WBC (Bld) 0.6 % Normal . [facility] Comment on above: Performed By: #### C RP, ESR, CMP, CBC #### [address] #### AKHIL #### [facility] , Erythrocyte distribution width (RBC) [Ratio] 13.0 % Normal 11.9-15.3 [facility] Comment on above: Performed By: #### C RP, ESR, CMP, CBC #### [place] [address] [place] #### AKHIL #### [facility] , Hematocrit (Bld) [Volume fraction] 41.0 % Normal 34.0-46.4 [facility] Comment on above: Performed By: #### C RP, ESR, CMP, CBC #### [place] [address] [place] #### AKHIL #### [facility] , Hemoglobin (Bld) [Mass/Vol] 14.1 g/dL Normal 11.8-15.4 [facility] Comment on above: Performed By: #### C RP, ESR, CMP, CBC #### [address] #### AKHIL #### [facility] , Lymphocytes (Bld) [#/Vol] 2.4 10*3/uL Normal 1.00-4.8 [facility] Comment on above: Performed By: #### C RP, ESR, CMP, CBC #### [address] #### AKHIL #### [facility] , Lymphocytes/100 WBC (Bld) 25.6 % Normal . [facility] Comment on above: Performed By: #### C RP, ESR, CMP, CBC #### [address] #### AKHIL #### [facility] , MCH (RBC) [Entitic mass] 28.9 pg Normal 24.7-34.3 [facility] Comment on above: Performed By: #### C RP, ESR, CMP, CBC #### [address] #### AKHIL #### [facility] , MCV (RBC) [Entitic vol] 84.0 fL Normal 80-100 [facility] Comment on above: Performed By: #### C RP, ESR, CMP, CBC #### [address] #### AKHIL #### [facility] , Mean Corpuscular HGB Conc 34.4 g/dL Normal 32.0-35.0 [facility] Comment on above: Performed By: #### C RP, ESR, CMP, CBC #### [address] #### AKHIL #### [facility] , Monocytes (Bld) [#/Vol] 0.4 10*3/uL Normal 0.0-0.8 [facility] Comment on above: Performed By: #### C RP, ESR, CMP, CBC #### [place] [address] [place] #### AKHIL #### [facility] , Monocytes/100 WBC (Bld) 4.6 % Normal . [facility] Comment on above: Performed By: #### C RP, ESR, CMP, CBC #### [place] [address] [place] #### AKHIL #### [facility] , Neutrophils (Bld) [#/Vol] 6.4 10*3/uL Normal 1.8-7.7 [facility] Comment on above: Performed By: #### C RP, ESR, CMP, CBC #### [place] [address] [place] #### AKHIL #### [facility] , Neutrophils/100 WBC (Bld) 68.9 % Normal . [facility] Comment on above: Performed By: #### C RP, ESR, CMP, CBC #### [place] [address] [place] #### AKHIL #### [facility] , NRBC% 0.2 /100{WBC} Normal 0-0.5 [facility] Comment on above: Performed By: #### C RP, ESR, CMP, CBC #### [place] [address] [place] #### AKHIL #### [facility] , Platelet mean volume (Bld) [Entitic vol] 7.9 fL Normal 6.3-10.7 [facility] Comment on above: Performed By: #### C RP, ESR, CMP, CBC #### [place] [address] [place] #### AKHIL #### [facility] , Platelets (Bld) [#/Vol] 262 10*3/uL Normal 150-450 [facility] Comment on above: Performed By: #### C RP, ESR, CMP, CBC #### [place] [address] [place] #### AKHIL #### [facility] , RBC (Bld) [#/Vol] 4.88 10*6/uL Normal 3.60-5.00 [facility] Comment on above: Performed By: #### C RP, ESR, CMP, CBC #### [place] [address] [place] #### AKHIL #### [facility] , WBC (Bld) [#/Vol] 9.3 10*3/uL Normal 3.8-11.6 [facility] Comment on above: Performed By: #### C RP, ESR, CMP, CBC #### [address] #### AKHIL #### [facility] , Comprehensive Metabolic Pane aydee 03-01-2023 Albumin [Mass/Vol] 4.6 g/dL Normal 3.5-5.7 [facility] Comment on above: Performed By: #### C RP, ESR, CMP, CBC #### [address] #### AKHIL #### [facility] , Albumin/Globulin [Mass ratio] 1.7 {ratio} Normal [facility] Comment on above: Performed By: #### C RP, ESR, CMP, CBC #### [place] [address] [place] #### AKHIL #### [facility] , ALP [Catalytic activity/Vol] 75 U/L Normal 34-104 [facility] Comment on above: Performed By: #### C RP, ESR, CMP, CBC #### [place] [address] [place] #### AKHIL #### [facility] , ALT [Catalytic activity/Vol] 16 U/L Normal 7-52 [facility] Comment on above: Performed By: #### C RP, ESR, CMP, CBC #### [place] [address] [place] #### AKHIL #### [facility] , Anion gap [Moles/Vol] 13.1 mmol/L Normal 6.0-15.0 [facility] Comment on above: Performed By: #### C RP, ESR, CMP, CBC #### [place] [address] [place] #### AKHIL #### [facility] , AST [Catalytic activity/Vol] 16 U/L Normal 13-39 [facility] Comment on above: Performed By: #### C RP, ESR, CMP, CBC #### [address] #### AKHIL #### [facility] , Bilirubin [Mass/Vol] 0.3 mg/dL Normal 0.3-1.0 [facility] Comment on above: Performed By: #### C RP, ESR, CMP, CBC #### [place] [address] [place] #### AKHIL #### [facility] , Calcium [Mass/Vol] 9.7 mg/dL Normal 8.6-10.3 [facility] Comment on above: Performed By: #### C RP, ESR, CMP, CBC #### [place] [address] [place] #### AKHIL #### [facility] , Chloride [Moles/Vol] 104 mmol/L Normal 98-107 [facility] Comment on above: Performed By: #### C RP, ESR, CMP, CBC #### [place] [address] [place] #### AKHIL #### [facility] , CO2 [Moles/Vol] 26.7 mmol/L Normal 21.0-31.0 [facility] Comment on above: Performed By: #### C RP, ESR, CMP, CBC #### [place] [address] [place] #### AKHIL #### [facility] , Creatinine [Mass/Vol] 0.95 mg/dL Normal 0.60-1.20 [facility] Comment on above: Performed By: #### C RP, ESR, CMP, CBC #### [place] [address] [place] #### AKHIL #### [facility] , GFR/1.73 sq M.predicted MDRD (S/P/Bld) [Vol rate/Area] mL/min/{1.73_m2} Normal [facility] Comment on above: Performed By: #### C RP, ESR, CMP, CBC #### [place] [address] [place] #### AKHIL #### [facility] , Globulin (S) [Mass/Vol] 2.7 g/dL Normal [facility] Comment on above: Performed By: #### C RP, ESR, CMP, CBC #### [place] [address] [place] #### AKHIL #### [facility] , Glucose [Mass/Vol] 101 mg/dL High 70-100 [facility] Comment on above: Result Comment: Stephens Glucose Reference Range is dependent on time and content of last meal. Glucose of more than 200 mg/dL in a nonstressed, ambulatory subject supports the diagnosis of Diabetes Mellitus. ADA recommended reference range Performed By: #### C RP, ESR, CMP, CBC #### [place] [address] [place] #### AKHIL #### [facility] , Potassium [Moles/Vol] 3.8 mmol/L Normal 3.5-5.1 [facility] Comment on above: Performed By: #### C RP, ESR, CMP, CBC #### [place] [address] [place] #### AKHIL #### [facility] , Protein [Mass/Vol] 7.3 g/dL Normal 6.4-8.9 [facility] Comment on above: Performed By: #### C RP, ESR, CMP, CBC #### [address] #### AKHIL #### [facility] , Sodium [Moles/Vol] 140 mmol/L Normal 136-145 [facility] Comment on above: Performed By: #### C RP, ESR, CMP, CBC #### [place] [address] [place] #### AKHIL #### [facility] , Urea nitrogen [Mass/Vol] 10 mg/dL Normal 7-25 [facility] Comment on above: Performed By: #### C RP, ESR, CMP, CBC #### [place] [address] [place] #### AKHIL #### [facility] , Creatinine [Mass/volume] in Serum or PlasmaOrdered By: Amor Judd on 03-01-2023 Creatinine [Mass/Vol] 0.95 mg/dL 0.60-1.20 [facility] Eosinophils Auto (Bld) [#/Vo l]Ordered By: Amor Judd on 03-01-2023 Eosinophils (Bld) [#/Vol] 0.1 10*3/uL 0.0-0.45 [facility] Eosinophils/100 WBC Auto (Bl d)Ordered By: Amor Judd on 03-01-2023 Eosinophils/100 WBC (Bld) 0.6 % . [facility] Erythrocyte Sedimentation Ra gloria 03-01-2023 ESR (Bld) [Velocity] 18 mm/h Normal 0-19 [facility] Comment on above: Result Comment: PERF ORMED BY: [place] [address] PATHOLOGIST CLEANING TEAM MEMBER LUKAS COLE M.D. Performed By: #### C RP, ESR, CMP, CBC #### [facility] [address] #### AKHIL #### [facility] , Erythrocyte distribution wid th Auto (RBC) [Ratio]Ordered By: Amor Judd on 03-01-2023 Erythrocyte distribution width (RBC) [Ratio] 13.0 % 11.9-15.3 [facility] Erythrocyte sedimentation ra te by Photometric methodOrdered By: Amor Judd on 03-01-2023 ESR Photometric method (Bld) [Velocity] 18 mm/hr 0-19 [facility] Globulin Calc (S) [Mass/Vol] Ordered By: Amor Judd on 03-01-2023 Globulin (S) [Mass/Vol] 2.7 g/dL [facility] Glucose [Mass/volume] in Ser um or PlasmaOrdered By: Amor Judd on 03-01-2023 Glucose [Mass/Vol] 101 mg/dL 70-100 [facility] Comment on above: ADA recommended refe rence rangeRandom Glucose Reference Range is dependent on time and content of last meal. Glucose of more than 200 mg/dL in a nonstressed, ambulatory subject supports the diagnosis of Diabetes Mellitus. Hematocrit Auto (Bld) [Volum e fraction]Ordered By: Amor Judd on 03-01-2023 Hematocrit (Bld) [Volume fraction] 41.0 % 34.0-46.4 [facility] Hemoglobin [Mass/volume] in BloodOrdered By: Amor Judd on 03-01-2023 Hemoglobin (Bld) [Mass/Vol] 14.1 g/dL 11.8-15.4 [facility] Leukocytes [#/volume] correc francisco j for nucleated erythrocytes in Blood by Automated counOrdered By: Amor Judd on 03-01-2023 WBC corrected for nucl RBC Auto (Bld) [#/Vol] 9.3 10*3/uL 3.8-11.6 [facility] Lymphocytes Auto (Bld) [#/Vo l]Ordered By: Amor Judd on 03-01-2023 Lymphocytes (Bld) [#/Vol] 2.4 10*3/uL 1.00-4.8 [facility] Lymphocytes/100 WBC Auto (Bl d)Ordered By: Amor Judd on 03-01-2023 Lymphocytes/100 WBC (Bld) 25.6 % . [facility] MCH Auto (RBC) [Entitic mass ]Ordered By: Amor Judd on 03-01-2023 MCH (RBC) [Entitic mass] 28.9 pg 24.7-34.3 [facility] MCHC Auto (RBC) [Mass/Vol]Or dered By: Amor Judd on 03-01-2023 MCHC (RBC) [Mass/Vol] 34.4 g/dL 32.0-35.[address] [facility] MCV Auto (RBC) [Entitic vol] Ordered By: Amor Judd on 03-01-2023 MCV (RBC) [Entitic vol] 84.0 fL 80-100 [facility] Monocytes Auto (Bld) [#/Vol] Ordered By: Amor Judd on 03-01-2023 Monocytes (Bld) [#/Vol] 0.4 10*3/uL 0.0-0.8 [facility] Monocytes/100 WBC Auto (Bld) Ordered By: Amor Judd on 03-01-2023 Monocytes/100 WBC (Bld) 4.6 % . [facility] Neutrophils Auto (Bld) [#/Vo l]Ordered By: Amor Judd on 03-01-2023 Neutrophils (Bld) [#/Vol] 6.4 10*3/uL 1.8-7.7 [facility] Neutrophils/100 WBC Auto (Bl d)Ordered By: Amor Judd on 03-01-2023 Neutrophils/100 WBC (Bld) 68.9 % . [facility] No Panel InformationOrdered By: Amor Judd on 03-01-2023 Estimated GFR (CKD-EPI) > 60.0 mL/Min [facility] Creatinine Clearance (Chem N/A [facility] Nucleated erythrocytes [Pres ence] in Blood by Automated countOrdered By: Amor Judd on 03-01-2023 Nucleated RBC Auto Ql (Bld) 0.2 /100{WBC} 0-0.5 [facility] Platelet mean volume Auto (B ld) [Entitic vol]Ordered By: Amor Judd on 03-01-2023 Platelet mean volume (Bld) [Entitic vol] 7.9 fL 6.3-10.7 [facility] Platelets Auto (Bld) [#/Vol] Ordered By: Amor Judd on 03-01-2023 Platelets (Bld) [#/Vol] 262 10*3/uL 150-450 [facility] Potassium [Moles/volume] in Serum or PlasmaOrdered By: Amor Judd on 03-01-2023 Potassium [Moles/Vol] 3.8 mmol/L 3.5-5.1 [facility] Protein [Mass/volume] in Ser um or PlasmaOrdered By: Amor Judd on 03-01-2023 Protein [Mass/Vol] 7.3 g/dL 6.4-8.9 [facility] RBC Auto (Bld) [#/Vol]Ordere d By: Amor Judd on 03-01-2023 RBC (Bld) [#/Vol] 4.88 10*6/uL 3.60-5.00 [facility] Serum or plasma albumin/glob ulin mass ratioOrdered By: Amor Judd on 03-01-2023 Albumin/Globulin [Mass ratio] 1.7 {ratio} [facility] Serum or plasma anion gap de terminationOrdered By: Amor Judd on 03-01-2023 Anion gap [Moles/Vol] 13.1 mmol/L 6.0-15.0 [facility] Sodium [Moles/volume] in Ser um or PlasmaOrdered By: Amor Judd on 03-01-2023 Sodium [Moles/Vol] 140 mmol/L 136-145 [facility] Urea nitrogen [Mass/volume] in Serum or PlasmaOrdered By: Amor Judd on 03-01-2023 Urea nitrogen [Mass/Vol] 10 mg/dL 7-25 [facility] WBC Auto (Bld) [#/Vol]Ordere d By: Amor Judd on 03-01-2023 WBC (Bld) [#/Vol] 9.3 10*3/uL 3.8-11.6 [facility] XR hand BI 2Von 03-01-2023 XR hand BI 2V [facility] [address] [address] XRay Report Signed Patient: Cinthya Myers MR#: [id number] [birth year] : 1990 Acct:[id number] Age/Sex: 32 / F ADM Date: 03/01/23 Loc: XDSHC Room: Type: REG CLI Attending Dr: Amor Judd MD Copies to: Amor Judd MD Ordering Provider: Amor Judd MD Date of Service: 03/01/23 XR/XR hand BI 2V: PAIN 2 views both hand plain film COMPARISON: None HISTORY: Bilateral hand pain and swelling. ACUTE FINDINGS: None DEGENERATIVE CHANGE: Unremarkable SOFT TISSUE FINDINGS: Unremarkable JOINT EFFUSION: None POSTOP CHANGES: None BONY MINERALIZATION: Adequate XR/XR hand BI 2V IMPRESSION: Unremarkable exam Impression dictated by: Shahid Byers M.D.03/01/2023 4:11 PM Dictation Location: [place] [address] Transcribed By: [facility] 03/01/23 161 Dictated By: Shahid Byers DO 03/01/23 1610 Signed By: 03/01/23 1611 Normal [facility] XR thoracic spine 3V*on XR thoracic spine 3V* [facility] Main [address] [address] XRay Report Signed Patient: Cinthya Myers MR#: [id number] [birth year] : 1990 Acct:[id number] Age/Sex: 32 / F ADM Date: 03/01/23 Loc: XDS Room: Type: REG CLI Attending Dr: Amor Judd MD Copies to: Amor Judd MD Ordering Provider: Amor Judd MD Date of Service: 03/01/23 XR/XR thoracic spine 3V*: PAIN 3 views of thoracic spine COMPARISON: None HISTORY: Bilateral hand pain. Back pain. The thoracic kyphosis is adequate. The disc spaces are maintained. Thoracic endplate spurs are present. No compression deformity identified The bony mineralization is adequate. No paraspinal abnormality seen. XR/XR thoracic spine 3V* IMPRESSION: Mild thoracic spondylosis. Mild scoliosis. Impression dictated by: Shahid Byers M.D.03/01/2023 4:11 PM Dictation Location: [place] [address] Transcribed By: [facility] 03/01/231610 Dictated By: Shahid Byers DO 03/01/231610 Signed By: 03/01/231610 Normal [facility] Basic Metabolic PanelOrdered By: Teresa Pérez on 04-22-2021 Anion gap [Moles/Vol] 12 mmol/L 9 - 17 mmol/L [employer] Phone: Calcium [Mass/Vol] 9.4 mg/dL 8.6 - 10. 4 mg/dL [employer] Phone: Chloride [Moles/Vol] 102 mmol/L 98 - 10 7 mmol/L [employer] Phone: CO2 [Moles/Vol] 24 mmol/L 20 - 31 mmol/L [employer] Phone: Creatinine [Mass/Vol] 0.8 mg/dL 0.50 - 0.90 mg/dL [employer] Phone: GFR >60 >60 mL/min [employer] Phone: GFR Non- >60 >60 mL/min [employer] Phone: GFR/1.73 sq M.predicted MDRD (S/P/Bld) [Vol rate/Area] [employer] Phone: Comment on above: Average GFR for 20-2 9 years old: 116 mL/min/1.73sq m Chronic Kidney Disease: <60 mL/min/1.73sq m Kidney failure: <15 mL/min/1.73sq m eGFR calculated using average adult body mass. Additional eGFR calculator available at: http://www.[employer].BitGym/multiple_crcl_2011.htm GFR/1.73 sq M.predicted MDRD (S/P/Bld) [Vol rate/Area] NOT REPORTED [facility] Phone: Glucose [Mass/Vol] 98 mg/dL 70 - 99 mg/dL [facility] [employer] Phone: Interpretation and review of laboratory results Abnormal [facility] Phone: Potassium [Moles/Vol] 3.6 mmol/L Low 3.7 - 5.3 mmol/L [facility] Phone: Sodium [Moles/Vol] 138 mmol/L 135 - 144 mmol/L [facility] [employer] Phone: Urea nitrogen (BldV) [Mass/Vol] 10 mg/dL 6 - 20 mg/dL [facility] Phone: Urea nitrogen/Creatinine (Bld) [Mass ratio] 13 [facility] Work Phone: CBC Auto DifferentialOrdered By: Teresa Pérez on 04-22-2021 Absolute Eos # 0.10 [facility] Work Phone: Absolute Immature Granulocyte NOT REPORTED [facility] [employer] Phone: Absolute Lymph # 2.00 [facility] Work Phone: Absolute Brule # 0.40 [facility] Work Phone: Basophils (Bld) [#/Vol] 0.00 10*3/uL [facility] [employer] Work Phone: Basophils/100 WBC (Bld) 0 % 0 - 2 % M [facility] [employer] Work Phone: Differential Type YES [facility] [employer] Work Phone: Eosinophils/100 WBC (Bld) 1 % 0 - 5 % [facility] [employer] Phone: Hematocrit (Bld) [Volume fraction] 40.1 % 36 - 46 % [facility] [employer] Work Phone: Hemoglobin.gastrointesti nal spec 1 Ql (Stl) 13.9 g/dL 12.0 - 16.0 g/dL [employer] Phone: Immature Granulocytes NOT REPORTED 0 % M [employer] Phone: Lymphocytes/100 WBC (Bld) 23 % 15 - 40 % [employer] Phone: MCH (RBC) [Entitic mass] 29.0 pg 26 - 34 pg [employer] Phone: MCHC (RBC) [Mass/Vol] 34.5 g/dL 31 - 37 g/dL M [employer] Phone: MCV (RBC) [Entitic vol] 84.0 fL 80 - 100 fL [employer] Phone: Monocytes/100 WBC (Bld) 4 % 4 - 8 % M [email or web address] Work Phone: NRBC Automated NOT REPORTED per 100 WBC [employer] Work Phone: Platelet distribution width (Bld) [Ratio] 12.4 % 12.1 - 15.2 % [employer] Phone: Platelet Estimate NOT REPORTED [employer] Phone: Platelet mean volume (Bld) [Entitic vol] NOT REPORTED 6.0 - 12.0 fL [employer] Phone: Platelets (Bld) [#/Vol] 286 10*3/uL [employer] Phone: RBC (Bld) [#/Vol] 4.77 10*6/uL 4.0 - 5.2 m/uL [employer] Phone: RBC (Bld) [#/Vol] NOT REPORTED [employer] Phone: Segmented neutrophils/100 WBC (Bld) 72 % 47 - 75 % [employer] Phone: Segs Absolute 6.40 [employer] Work Phone: WBC (Bld) [#/Vol] 8.9 10*3/uL [employer] Work Phone: WBC (Bld) [#/Vol] NOT REPORTED [employer] Phone: [employer] Work Phone: MagnesiumOrdered By: Teresa Pérez on 04-22-2021 Magnesium [Mass/Vol] 2.1 mg/dL 1.6 - 2 .6 mg/dL [employer] Phone: No Panel InformationOrdered By: Teresa Pérez on 04-22-2021 [employer] Phone: TSH with ReflexOrdered By: Israel Pérez on 04-22-2021 TSH Qn 1.17 m[IU]/L [employer] Work Phone: Vitamin B12 & FolateOrdered By: Teresa Pérez on 04-22-2021 Cobalamin (Vitamin B12) [Mass/Vol] 441 pg/mL 232 - 1245 pg/mL [employer] Phone: Folate 11.2 ng/mL >4.8 [employer] Phone: [employer] Phone: Encounters Encounter Date Encounter Type Care Provider Facility Start: 12-01-2023 End: 12-01-2023 ambulatory LOUIS ERENDIRA Not Available Start: 11-25-2023 End: 11-25-2023 ambulatory Louis Erendira Facility:[facility] Start: 11-25-2023 End: 11-25-2023 ambulatory Louis Erendira Work Phone: [facility] Work Phone: Start: 11-25-2023 End: 11-25-2023 Departed Referred Louis Eerndira Work Phone: [facility] Start: 11-11-2023 End: 11-12-2023 ambulatory IAIN MARQUEZ [facility] Start: 10-26-2023 End: 10-26-2023 ambulatory LOUIS KRISHNA Not Available Start: 09-23-2023 End: 09-24-2023 ambulatory [facility] Start: 09-08-2023 End: 09-09-2023 ambulatory [facility] Start: 09-08-2023 End: 09-08-2023 Subsequent hospital visit by physician Iain Velarde DNP Work Phone: [facility] Start: 06-21-2023 End: 06-21-2023 ambulatory Rhonda Limon Facility:[facility] Start: 06-21-2023 End: 06-21-2023 ambulatory MD Rhonda Limon Work Phone: [facility] Work Phone: Start: 06-21-2023 End: 06-21-2023 Patient encounter procedure MD Rhonda Limon Work Phone: [facility] [address] Work Phone: Start: 03-01-2023 End: 03-01-2023 ambulatory Amor Judd Facility:[facility] Start: 03-01-2023 End: 03-01-2023 ambulatory MD Rhonda Limon Work Phone: [facility] Work Phone: Start: 03-01-2023 End: 03-01-2023 Patient encounter procedure MD Rhonda Limon Work Phone: [facility]-X-Ray [facility] Start: 07-22-2022 End: 07-22-[address] MARTÍN GUZMAN Facility: Start: 04-22-2021 End: 04-22-2021 Subsequent hospital visit by physician Iain Velarde IMPORT EXPORT MANAGER - EDITING COMPUTER PUBLISHER Work Phone: [facility] Comment on above: Paresthesia; Weight gain; Screening for cardiovascular condition Start: 11-18-2018 End: 11-19-2018 Patient encounter procedure Henrik Vidal Facility:[id number] Start: 10-04-2012 End: 04-21-2018 Patient encounter status Iain Velarde IMPORT EXPORT MANAGER - EDITING COMPUTER PUBLISHER Work Phone: [facility] [employer] Procedures Date Procedure Procedure Detail Performing Clinician Start: 09-08-2023 Creatinine blood Enedina Marquez MD Work Phone: Start: 09-08-2023 Hepatic function panel Iain Marquez MD Work Phone: Start: 03-01-2023 Plain X-ray of bilat eral hands MD Rhonda Limon Work Phone: Start: 03-01-2023 Radiography of thora cic spine MD Rhonda Limon Work Phone: Start: 07-22-2022 Microscopic observat ion [Identifier] in Cervix by Cyto stain Iain Velarde DNP Work Phone: Start: 04-22-2021 Basic metabolic pane l calcium total Teresa L Yonley DO Work Phone: Start: 04-22-2021 VITAMIN B12 & FOLATE Je ssica L Yonley DO Work Phone: Start: 03-04-2015 Microscopic observat ion [Identifier] in Cervix by Cyto stain Iain Velarde IMPORT EXPORT MANAGER - EDITING COMPUTER PUBLISHER Work Phone: Plan of Treatment Date Care Activity Detail Author Start: 07-22-2025 [facility] Start: 02-05-2024 Depression Screen Depression Screen [facility] Start: 06-21-2023 Hepatitis B core antibody measurement [facility] Start: 06-21-2023 [facility] Start: 03-26-2023 COVID-19 Vaccine ( season) COVID-19 Vaccine () [facility] Start: 03-01-2023 [facility] Start: 02-23-2023 Influenza vaccination Flu vaccine (# 1) [facility] [employer] Start: 2022 Screening for malign ant neoplasm of cervix HPV (without or with Pap) [facility] [employer] Start: 03-26-2021 Influenza vaccination Flu vaccine (# 1) [facility] Phone: Start: 02-13-2021 DTaP/Tdap/Td vaccine (7 - Td or Tdap) DTaP/Tdap/Td vaccine (7 - Td or Tdap) [facility] [employer] Start: 03-04-2018 Screening for malign ant neoplasm of cervix Pap smear [facility] Phone: Start: 2010 Hepatitis C screening Hepatitis C mi severiano [facility] [employer] Start: 12-08-2007 HIV screening HIV screen [facility] [employer] Start: 1993 Varicella vaccine (1 of 2 - 2-dose childhood series) Varicella vaccine (1 of 2 - 2-dose childhood series) [facility] Start: 1992 Hepatitis B vaccine (1 of 3 - 3-dose series) Hepatitis B vaccine (1 of 3 - 3-dose series) [facility] [employer] Start: 1992 Hepatitis C screening Hepatitis C mi nagigumaro [facility] [employer] Phone: Complement C3 [Mass/volume] in Serum or Plasma [facility] Complement C4 [Mass/volume] in Serum or Plasma [facility] Hepatitis B virus surface Ab [Presence] in Serum [facility] Hepatitis B virus surface Ag [Presence] in Serum or Plasma by Immunoassay [facility] Hepatitis C virus Ig G Ab [Presence] in Serum or Plasma by Immunoassay [facility] Homogenous nuclear A b pattern [Titer] in Serum [facility] Nuclear Ab [Titer] i n Serum [facility] Immunizations Immunization Date Immunization Notes Care Provider Fa cility 12-10-2020 COVID-19, Moderna, P F, 100mcg/0.5mL Iain Velarde IMPORT EXPORT MANAGER - EDITING COMPUTER PUBLISHER Work [facility]: [facility] Phone: 12-10-2020 COVID-19, [place] Vaccine , Vaccine Unspecified Iain Velarde DNP Work Phone: [facility] 11-12-2020 COVID-19, Moderna, P F, 100mcg/0.5mL Iainklaudia Velarde [facility] Work Phone: [facility] Work Phone: 11-12-2020 COVID-19, [place] Vaccine , Vaccine Unspecified Iain Velarde [facility] Work Phone: [facility] 05-17-2016 influenza, injectabl e, quadrivalent, preservative free [facility] Work Phone: [facility] 02-24-2011 tetanus toxoid, unspecified formulation [facility] Work Phone: [facility] 02-13-2011 meningococcal polysaccharide (groups A, C, Y and W-135) diphtheria toxoid conjugate vaccine (MCV4P) [facility] Work Phone: [facility] Work Phone: 02-13-2011 tetanus toxoid, redu jean pierre diphtheria toxoid, and acellular pertussis vaccine, adsorbed [facility] Work Phone: [facility] Work Phone: 01-10-1998 diphtheria, tetanus toxoids and acellular pertussis vaccine [facility] Work Phone: [facility] Work Phone: 01-10-1998 diphtheria, tetanus toxoids and acellular pertussis vaccine, unspecified formulation [facility] Work Phone: [facility] Work Phone: 01-10-1998 poliovirus vaccine, inactivated [facility]ain [facility] Work Phone: [facility] Work Phone: 04-09-1994 diphtheria, tetanus toxoids and acellular pertussis vaccine Iain Velarde APRN - EDITING COMPUTER PUBLISHER Work Phone: [employer] Phone: 04-09-1994 diphtheria, tetanus toxoids and acellular pertussis vaccine, unspecified formulation Iainklaudia Velarde APRN - EDITING COMPUTER PUBLISHER Work Phone: [employer] Work Phone: 04-09-1994 measles, mumps and rubella virus vaccine Iain Velarde APRN - EDITING COMPUTER PUBLISHER Work Phone: [employer] Work Phone: 04-09-1994 poliovirus vaccine, inactivated Iainklaudia Velarde APRN - EDITING COMPUTER PUBLISHER Work Phone: [employer] Phone: 08-05-1993 diphtheria, tetanus toxoids and acellular pertussis vaccine Iainklaudia Velarde APRN - EDITING COMPUTER PUBLISHER Work Phone: [employer] Phone: 08-05-1993 diphtheria, tetanus toxoids and acellular pertussis vaccine, unspecified formulation Iainklaudia Velarde APRN - EDITING COMPUTER PUBLISHER Work Phone: [employer] Phone: 05-06-1993 diphtheria, tetanus toxoids and acellular pertussis vaccine Iainklaudia Velarde APRN - EDITING COMPUTER PUBLISHER Work Phone: [employer] Work Phone: 05-06-1993 diphtheria, tetanus toxoids and acellular pertussis vaccine, unspecified formulation Iainklaudia Velarde APRN - EDITING COMPUTER PUBLISHER Work Phone: [employer] Phone: 05-06-1993 poliovirus vaccine, inactivated Iain Velarde APRN - EDITING COMPUTER PUBLISHER Work Phone: [employer] Phone: 03-02-1993 diphtheria, tetanus toxoids and acellular pertussis vaccine Iain Prachi [facility] Work Phone: TERESO KHAN [facility] 03-02-1993 diphtheria, tetanus toxoids and acellular pertussis vaccine, unspecified formulation Iain Velarde [facility] Work Phone: [facility] Work Phone: 03-02-1993 poliovirus vaccine, inactivated Iain Velarde [facility] Work Phone: [facility] Work Phone: Payers Date Payer Category Payer Self-pay 1990 Unknown [id number] 2.16.84 [id number] 1990 Unknown [id number] 2.16.8 [id number] 1990 Unknown [id number] 2.16.8 [id number] 1990 Unknown [id number] 2.16.8 [id number] 1990 Unknown [id number] 2.16.84 [id number] 1990 Unknown [id number] 2.16.84 [id number] 1992 Unknown [id number] 2.16.84 [id number] 1959 Unknown [id number]. [id number] Unknown [id number] 2.16.8 [id number] Unknown [id number] 2.16.8 [id number] Unknown [id number] 2.16.8 [id number] Unknown [id number] 2.16.8 [id number] Social History Date Type Detail Facility Start: 03-04-2015 End: 04-22-2021 Tobacco smoking status NHIS Never smoker [email or web address] Start: 03-04-2015 End: 04-22-2021 Tobacco use and exposure Never used [employer] Start: 04-22-2021 End: 02-04-2023 Alcohol intake Current non-drinker of alcohol (finding) [employer] Phone: Start: 04-22-2021 End: 02-04-2023 Alcohol intake [employer] Work Phone: Start: 04-22-2021 History SDOH Financial 5 [employer] Work Phone: Start: 04-22-2021 History SDOH Food Worry 1 [employer] Phone: Start: 1990 Sex Assigned At Not on file M [email or web address] Work Phone: Start: 1990 Sex Assigned At Female F [facility] Start: 02-04-2023 Tobacco use panel Reimage How hard is it for y ou to pay for the very basics like food, housing, medical care, and heating Not hard at all [email or web address] (I/We) worried wheth er (my/our) food would run out before (I/we) got money to buy more. Never true [email or web address] At any time in the p ast 12 months, were you homeless or living in halfway [including now]? No [email or web address] Evaluation note Note Date & Type Note Facility Evaluation note Diagnosis Paresthesia Disturbance of skin sensation Weight gain Abnormal weight gain Screening for cardiovascular condition Screening for other and unspecified cardiovascular conditions documented in this encounter [employer] Work Phone: Evaluation note Note Date & Type Note Facility Evaluation note No assessment information availa [facility] Work Phone: Summary Purpose Family History No Family History Records FoundNo Family History Records FoundNo Family History Records FoundNo Family History Records FoundNo Family History Records Found Advance Directives Documents on File Type Date Recorded Patient Skilled Nursing Case Manager Expl anation ACP-Advance Directive ACP-Power of Um Rn Advance Directive Response Recorded Date/ Time Advance Directives No March 01, 023 2:18pm Advance Directive Response Recorded Date/ Time Advance Directives No March 05, 2023 9:09am Advance Directive Response Recorded Date/ Time Advance Directives No March 05, 2023 10:09am Chief Complaint and Reason for Visit Chief Complaint hand pain bilat /tho racic spine Chief Complaint Unknown Additional Source Comments INFORMATION SOURCE (unrecogn ized section and content) DATE CREATED AUTHOR 11/22/2018 [facility] DATE CREATED AUTHOR AUTHOR'S ORGANIZ ATION 07/24/2022 [facility] DATE CREATED AUTHOR AUTHOR'S ORGANIZ ATION 11/13/2023 [facility] DATE CREATED AUTHOR AUTHOR'S ORGANIZ ATION 12/01/2023 [facility] DATE CREATED AUTHOR AUTHOR'S ORGANIZ ATION 12/03/2023 [facility] EPIC Care Teams (unrecognized sec tion and content) Team Status: Active Member Role Status Dates Rhonda Limon MD Primary Care Provider Active Team Status: Inactive Member Role Status Dates Amor Judd MD Attending Provider Active Team Status: Inactive Member Role Status Dates Rhonda Limon MD Primary Care Provider Active Amor Judd MD Attending Provider Active [employer] Relationship Specialty Start Date End Date Iain Velarde DNP [address] [place] [phone] PCP - General Family Nurse Practitioner 03/25/18 Team Status: Inactive Member Role Status Dates Louis Krishna Attending Provider Active Start: Ivon phillips 2023 End: November 25, 2023 Goals (unrecognized section and content) Goals may be documented in a n alternate sectionGoals may be documented in an alternate sectionGoals may be documented in an alternate sectionGoals may be documented in an alternate section FOR RECORDS PERTAINING TO PATIENTS WHO ARE OR HAVE BEEN ENROLLED IN A CHEMICAL DEPENDENCY/SUBSTANCEABUSE PROGRAM, SOME INFORMATION MAY BE OMITTED. This clinical summary was aggregated from multiple sources. Caution should be exercised in using it in the provision of clinical care. This summary normalizes information from multiple sources, and as a consequence, information in this document may materially change the coding, format and clinical context of patient data. In addition, data may be omitted in some cases. CLINICAL DECISIONS SHOULD BE BASED ON THE PRIMARY CLINICAL RECORDS. [employer] [facility]. provides no warranty or guarantee of the accuracy or completeness of information in this document.
== END 2023-12-10 10:00 | disposition home or self-care (01) ==
LOC: PST 10:00
PROVIDERS: Visit Provider Obstetrics & Gynecology
DX: Z01.818 Encounter for other preprocedural examination (principal); Z30.2 Encounter for sterilization; N92.0 Excessive and frequent menstruation with regular cycle; N93.9 Abnormal uterine and vaginal bleeding, unspecified; R10.2 Pelvic and perineal pain

== ENCOUNTER 2023-12-24 06:13 | Day surgery (SDC) | payer BC, SELFPAY ==
[2023-12-10 10:29] VITALS: BP 122/88; PULSE 81; TEMP 36.2; O2SAT 98; BMI 35.8
[2023-12-24] VITALS (9 sets, daily range): BP systolic 103–128; BP diastolic 67–87; PULSE 68–83; TEMP 35.9–36.3; O2SAT 93–100
--- OUTSIDE RECORDS SUMMARY | 2023-12-24 06:16 | XMS_ITS ---
Patient Summarization (C-CDA 2.1 CCD) Created on: December 24, 2023 LOUIS CINTHYA~LOUIS MENDES : 1990 Sex: Female Author Organization Sample organization Care Team Providers Care Institution Librarian Name Role Phone Henrik Vidal Attending Unavailable [employer] OPERATOR - Iain BURDICK Primary Care Prov ider MEGAN, DR RESENDIZ Admitting Unavailable KARJUAN J, DR RESENDIZ Attending Unavailable [facility], DR CORTES Primary Care Unavailable MEGAN, DR RESENDIZ Consulting Unavailable MD Amor Judd Attending Provider [phone] MD Rhonda Limon Primary Care Provider MD Rhonda Limon Primary Care Provider MD Amor Judd Attending Provider [phone] Iain Velarde DNP Primary Care Provider IAIN [...] sources) lemon allergenic extract Drug Allergy 07-22-2016 [facility] (1 source) lemon oil Drug Allergy 07-22-2016 [facility]ository Encounters Encounter Date Encounter Type Care Provider Facility Start: 12-01-2023 End: 12-01-2023 ambulatory LOUIS MERCEDESO Not Available Start: 11-25-2023 End: 11-25-2023 ambulatory Louis Erendira Facility:[facility] Start: 11-25-2023 End: 11-25-2023 ambulatory Louis Erendira Work Phone: [facility] Work Phone: Start: 11-25-2023 End: 11-25-2023 Departed Referred Louis Mercedeso Work Phone: [facility]-LAB Path [facility] Start: 11-11-2023 End: 11-12-2023 ambulatory [facility] Wendi [facility] Start: 10-26-2023 End: 10-26-2023 ambulatory LOUIS ERENDIRA Not Available Start: 09-23-2023 End: 09-24-2023 ambulatory [facility] Start: 09-08-2023 End: 09-09-2023 ambulatory [facility] Start: 09-08-2023 End: 09-08-2023 Subsequent hospital visit by physician Iain Velarde DNP Work Phone: [facility] Start: 06-21-2023 End: 06-21-2023 ambulatory Rhonda Limon Facility:[facility] Start: 06-21-2023 End: 06-21-2023 ambulatory MD Rhonda Limon Work Phone: [facility] Work Phone: Start: 06-21-2023 End: 06-21-2023 Patient encounter procedure MD Rhonda Limon Work Phone: [facility] [address] Work Phone: Start: 03-01-2023 End: 03-01-2023 ambulatory Amor Judd Facility:[facility] Start: 03-01-2023 End: 03-01-2023 ambulatory MD Rhonda Limon Work Phone: [facility] Work Phone: Start: 03-01-2023 End: 03-01-2023 Patient encounter procedure MD Rhonda Limon Work Phone: [facility]X-Ray [facility] Start: 07-22-2022 End: 07-22-[address] MARTÍN GUZMAN Facility:[facility] Start: 04-22-2021 End: 04-22-2021 Subsequent hospital visit by physician Iain Velarde APRN - DIRECTOR REGULATORY AFFAIRS Work Phone: [facility] Comment on above: Paresthesia; Weight gain; Screening for cardiovascular condition Start: 11-18-2018 End: 11-19-2018 Patient encounter procedure Henrik Vidal Facility:[id number] Start: 10-04-2012 End: 04-21-2018 Patient encounter status Iain Velarde APRN - DIRECTOR REGULATORY AFFAIRS Work Phone: [facility] Immunizations Immunization Date Immunization Notes Care Provider Fa cili 12-10-2020 COVID-19, Moderna, P F, 100mcg/0.5mL Iain Velarde [employer]UP SYSTEM OPERATOR - DIRECTOR REGULATORY AFFAIRS Work Phone: [facility] Work Phone: 12-10-2020 COVID-19, [place] Vaccine , Vaccine Unspecified Iain Velarde DNP Work Phone: [facility] 11-12-2020 COVID-19, Moderna, P F, 100mcg/0.5mL Iain Velarde APRN - DIRECTOR REGULATORY AFFAIRS Work Phone: [facility] Work Phone: 11-12-2020 COVID-19, [place] Vaccine , Vaccine Unspecified Iain Velarde DNP Work Phone: [facility] 05-17-2016 influenza, injectabl e, quadrivalent, preservative free Iain Cotton [facility] Work Phone: [facility] 02-24-2011 tetanus toxoid, unspecified formulation Iain Velarde APRN [facility] Work Phone: [facility] 02-13-2011 meningococcal polysaccharide (groups A, C, Y and W-135) diphtheria toxoid conjugate vaccine (MCV4P) Iain Velarde APRN [facility] Work Phone: [facility] Work Phone: 02-13-2011 tetanus toxoid, redu jean pierre diphtheria toxoid, and acellular pertussis vaccine, adsorbed Iain Velarde APRN [facility] Work Phone: [facility] Work Phone: 01-10-1998 diphtheria, tetanus toxoids and acellular pertussis vaccine Iainklaudia Velarde APRN - [facility] Work Phone: [facility] Work Phone: 01-10-1998 diphtheria, tetanus toxoids and acellular pertussis vaccine, unspecified formulation Iainklaudia Velarde APRN - [facility] Work Phone: [facility] Work Phone: 01-10-1998 poliovirus vaccine, inactivated Iain Velarde APRN - [facility] Work Phone: [facility] Work Phone: 04-09-1994 diphtheria, tetanus toxoids and acellular pertussis vaccine Iain Velarde APRN - [facility] Work Phone: [facility] Work Phone: 04-09-1994 diphtheria, tetanus toxoids and acellular pertussis vaccine, unspecified formulation Iain Velarde APRN - [facility] Work Phone: [facility] Work Phone: 04-09-1994 measles, mumps and rubella virus vaccine Iainklaudia Velarde APRN - [facility] Work Phone: [facility] Work Phone: 04-09-1994 poliovirus vaccine, inactivated Iain Velarde [employer]IC PAGE MAKEUP SYSTEM OPERATOR - DIRECTOR REGULATORY AFFAIRS Work Phone: [facility] Work Phone: 08-05-1993 diphtheria, tetanus toxoids and acellular pertussis vaccine Iainklaudia Velarde E[employer]RONIC PAGE MAKEUP SYSTEM OPERATOR - DIRECTOR REGULATORY AFFAIRS Work Phone: [facility] Work Phone: 08-05-1993 diphtheria, tetanus toxoids and acellular pertussis vaccine, unspecified formulation Iainklaudia Velarde E[employer]RONIC PAGE MAKEUP SYSTEM OPERATOR - DIRECTOR REGULATORY AFFAIRS Work Phone: [facility] Work Phone: 05-06-1993 diphtheria, tetanus toxoids and acellular pertussis vaccine Iainklaudia Velarde E[employer]RONIC PAGE MAKEUP SYSTEM OPERATOR - DIRECTOR REGULATORY AFFAIRS Work Phone: [facility] Work Phone: 05-06-1993 diphtheria, tetanus toxoids and acellular pertussis vaccine, unspecified formulation Iainklaudia Velarde APRN - DIRECTOR REGULAT[facility] AFFAIRS Work Phone: [facility] Work Phone: 05-06-1993 poliovirus vaccine, inactivated Iainklaudia Velarde [employer]RONIC PAGE MAKEUP SYSTEM OPERATOR - DIRECTOR REGULATORY AFFAIRS Work Phone: [facility] Work Phone: 03-02-1993 diphtheria, tetanus toxoids and acellular pertussis vaccine Iainklaudia Velarde [employer]IC PAGE MAKEUP SYSTEM OPERATOR - DIRECTOR REGULATORY AFFAIRS Work Phone: [facility] 03-02-1993 diphtheria, tetanus toxoids and acellular pertussis vaccine, unspecified formulation Iainklaudia Velarde [employer]RONIC PAGE MAKEUP SYSTEM OPERATOR - DIRECTOR REGULATORY AFFAIRS Work Phone: [facility] Work Phone: 03-02-1993 poliovirus vaccine, inactivated Iainklaudia Palaciosn [employer]UP SYSTEM OPERATOR - DIRECTOR REGULATORY AFFAIRS Work Phone: [facility] Work Phone: Medications Current Medications Medication Drug Class(es) Dates Sig (Normalized) Sig (Original) Ethinyl Estradiol / Ferrous fumarate / Norethindrone (1 source) Estrogen Start: 11-27-2022 FE 08/14 1-20 MG-MCG per tablet Ethinyl Estradiol / [...] week for 30 days 0 10/28/2022 Active Payers Date Payer Category Payer Self-pay 1990 Unknown [id number] 2.16.84 [id number] 1990 Unknown [id number] 2.16.8 [id number] 1990 Unknown [id number] 2.16.8 [id number] 1990 Unknown [id number] 2.16.8 [id number] 1990 Unknown [id number] 2.16.84 [id number] 1990 Unknown [id number] 2.16.84 [id number] 1990 Unknown [id number] 2.16.84 [id number] 1957 Unknown [id number] 1. [id number] Unknown [id number] 2.16.8 [id number] Unknown [id number] 2.16.8 [id number] Unknown [id number] 2.16.8 [id number] Unknown [id number] 2.16.8 [id number] Plan of Treatment Date Care Activity Detail Author Start: 07-22-2025 Screening for malign ant neoplasm of cervix [facility] Start: 02-05-2024 Depression Screen Depression Screen [facility] Start: 06-21-2023 Hepatitis B core antibody measurement [facility] Start: 06-21-2023 [facility] Start: 03-26-2023 COVID-19 Vaccine () COVID-19 Vaccine () [facility] Start: 03-01-2023 [facility] Start: 02-23-2023 Influenza vaccination Flu vaccine (# 1) [facility] Start: 2022 Screening for malign ant neoplasm of cervix HPV (without or with Pap) [facility] Start: 03-26-2021 Influenza vaccination Flu vaccine (# 1) [facility] Phone: Start: 02-13-2021 DTaP/Tdap/Td vaccine (7 - Td or Tdap) DTaP/Tdap/Td vaccine (7 - Td or Tdap) [facility] Start: 03-04-2018 Screening for malign ant neoplasm of cervix Pap smear [facility] Phone: Start: 2010 Hepatitis C screening Hepatitis C sc reen [facility] Start: 12-08-2007 HIV screening HIV screen [facility] Start: 1993 Varicella vaccine (1 of 2 - 2-dose childhood series) Varicella vaccine (1 of 2 - 2-dose childhood series) [facility] Start: 1992 Hepatitis B vaccine (1 of 3 - 3-dose series) Hepatitis B vaccine (1 of 3 - 3-dose series) TERESO KHAN [facility] Start: 1990 Hepatitis C screening Hepatitis C tx severiano [facility] Work Phone: Complement C3 [Mass/volume] in Serum or Plasma [facility] Complement C4 [Mass/volume] in Serum or Plasma [facility] Hepatitis B virus surface Ab [Presence] in Serum [facility] Hepatitis B virus surface Ag [Presence] in Serum or Plasma by Immunoassay [facility] Hepatitis C virus Ig G Ab [Presence] in Serum or Plasma by Immunoassay [facility] Homogenous nuclear A b pattern [Titer] in Serum [facility] Nuclear Ab [Titer] i n Serum [facility] Problems Active Problems Problem Classification Problem Date Documented Date Episodic/Chronic Other aftercare (2 sources) Other half-way (current) drug therapy; Translations: [Other promotion writer (current) drug therapy] Onset: 09-08-2023 Episodic Other [...] [Pain in unspecified joint] Onset: 03-01-2023 Episodic Procedures Date Procedure Procedure Detail Performing Clinician [...] in Cervix by Cyto stain Iain Velarde [employer]UP SYSTEM OPERATOR - DIRECTOR REGULATORY AFFAIRS Work Phone: Results Test Name Value Interpretation Reference Range Facility [facility] 11-25-2023 L Specimen: [id number] Received: 11/26/23 Status: RYAN Guillen Num: [id number] Spec Type: Surgical Subm Dr: Louis Krishna Tissues: A Endometrium - Biopsy (ENDOMETRIUM BX) Procedures: HE/2, Gross/Micro L4 Age/ Patient Sex Location Account Attending Physician Cinthya Han 32/F LABELL [id number] Louis Krishna SPEC NUM: [id number] RECD: 11/26/23 STATUS: RYAN GUILLEN NUM: [id number] CHLOE: 11/25/[address]: Louis Krishna ENTERED: 11/26/[address]: Amelia,Lab SPEC TYPE: Surgical DEPT: LINDEN [...] with irregular cycles. N92.1 TW CPT Codes 55937 Specimen: [id number] Received: 11/26/23 Status: RYAN Guillen Num: [id number] Spec Type: Surgical Subm Dr: Louis Krishna Tissues: A Endometrium - Biopsy (ENDOMETRIUM BX) Procedures: DEAN Gross/Micro L4 Patient: Cinthya Han [id number] (Continued) Signed (signature on file) [facility] MD 11/29/232048 Normal [facility] CBC with Diffon 11-11-2023 Abs. Basophil 0.03 k/uL Normal 0.00-0.20 [facility] Comment on above: Performed By: #### C REG, CDP, LIVP, SED #### [facility] [address] [place] [address] Maintenance Department Technician: Dev Morley MD Abs.Imm.Granulocyte 0.02 k/uL Normal 0.00-0.30 [facility] Comment on above: Performed By: #### C REG, CDP, LIVP, SED #### [facility] [address] [place] [address] Maintenance Department Technician: Dev Morley MD Abs.Neutrophil (Seg) 6.72 k/uL Normal 2.5-7.0 [facility] Comment on above: Performed By: #### C REG, CDP, LIVP, SED #### [facility] [address] [place] [address] Maintenance Department Technician: Dev Morley MD Basophils/100 WBC (Bld) 0 % Normal 0-2 [facility] Comment on above: Performed By: #### C REG, CDP, LIVP, SED #### [facility] [address] [place] [address] Maintenance Department Technician: Dev Morley MD Eosinophils (Bld) [#/Vol] 0.13 10*3/uL Normal 0.00-0.40 [facility] Comment on above: Performed By: #### C REG, CDP, LIVP, SED #### [facility] [address] [place] [id number] Maintenance Department Technician: Dev Morley MD Eosinophils/100 WBC (Bld) 1 % Normal 0-5 [facility] Comment on above: Performed By: #### C REG, CDP, LIVP, SED #### [facility] [address] [place] [id number] Maintenance Department Technician: Dev Morley MD Erythrocyte distribution width (RBC) [Ratio] 12.4 % Normal 12.1-15.2 [facility] Comment on above: Performed By: #### C REG, CDP, LIVP, SED #### [facility] [address] [place] [address] Maintenance Department Technician: Dev Morley MD Hematocrit (Bld) [Volume fraction] 42.4 % Normal 36.0-46.0 [facility] Comment on above: Performed By: #### C REG, CDP, LIVP, SED #### [facility] [address] [place] [id number] Maintenance Department Technician: Dev Morley MD Hemoglobin (Bld) [Mass/Vol] 14.4 g/dL Normal 12.0-16.0 [facility] Comment on above: Performed By: #### C REG, CDP, LIVP, SED #### [facility] [address] [place], [place] [id number] Maintenance Department Technician: Dev Morley MD Immature granulocytes/100 WBC (Bld) 0 % Normal 0-5 [facility] Comment on above: Performed By: #### C REG, CDP, LIVP, SED #### [facility] [address] [place] [id number] Maintenance Department Technician: Dev Morley MD Lymphocytes (Bld) [#/Vol] 1.94 10*3/uL Normal 1.00-4.80 [facility] Comment on above: Performed By: #### C REG, CDP, LIVP, SED #### [facility] [address] [place] [address] Maintenance Department Technician: Dev Morley MD Lymphocytes/100 WBC (Bld) 21 % Normal 15-40 [facility] Comment on above: Performed By: #### C REG, CDP, LIVP, SED #### [facility] [address] [place] [address] Maintenance Department Technician: Dev Morley MD MCH (RBC) [Entitic mass] 28.3 pg Normal 26.0-34.0 [facility] Comment on above: Performed By: #### C REG, CDP, LIVP, SED #### [facility] [address] [place] [address] Maintenance Department Technician: Dev Morley MD MCHC (RBC) [Mass/Vol] 34.0 g/dL Normal 31.0-37.0 [facility] Comment on above: Performed By: #### C REG, CDP, LIVP, SED #### [facility] [address] [place] [address] Maintenance Department Technician: Dev Morley MD MCV (RBC) [Entitic vol] 83.3 fL Normal 80.0-100.0 [facility] Comment on above: Performed By: #### C REG, CDP, LIVP, SED #### [facility] [address] [place] [id number] Maintenance Department Technician: Dev Morley MD Monocytes (Bld) [#/Vol] 0.50 10*3/uL Normal 0.00-1.00 [facility] Comment on above: Performed By: #### C REG, CDP, LIVP, SED #### [facility] [address] [place] [address] Maintenance Department Technician: Dev Morley MD Monocytes/100 WBC (Bld) 5 % Normal 4-8 [facility] Comment on above: Performed By: #### C REG, CDP, LIVP, SED #### [facility] [address] [place], [place] [id number] (036) Maintenance Department Technician: Dev Morley MD Neutrophil (Seg) 73 % Normal 47-75 [facility] Comment on above: Performed By: #### C REG, CDP, LIVP, SED #### [facility] [address] [place], [place] [phone] (599) Maintenance Department Technician: Dev Morley MD Platelet mean volume (Bld) [Entitic vol] 9.6 fL Normal 6.0-12.0 [facility] Comment on above: Performed By: #### C REG, CDP, LIVP, SED #### [facility] [address] [place] [address] (980) Maintenance Department Technician: Dev Morley MD Platelets (Bld) [#/Vol] 257 10*3/uL Normal 140-450 [facility] Comment on above: Performed By: #### C REG, CDP, LIVP, SED #### [facility] [address] [place] [address] (599) Maintenance Department Technician: Dev Morley MD RBC (Bld) [#/Vol] 5.09 10*6/uL Normal 4.00-5.20 [facility] Comment on above: Performed By: #### C REG, CDP, LIVP, SED #### [facility] [address] [place] [address] (473) Maintenance Department Technician: Dev Morley MD WBC (Bld) [#/Vol] 9.3 10*3/uL Normal 3.5-11.0 [facility] Comment on above: Performed By: #### C REG, CDP, LIVP, SED #### [facility] [address] [place] [address] (493) Maintenance Department Technician: Dev Morley MD Creatinine w/GFRon 4 Creatinine [Mass/Vol] 0.9 mg/dL Normal 0.5-0.9 [facility] Comment on above: Performed By: #### C REG, CDP, LIVP, SED #### [facility] [address] [place] [address] Maintenance Department Technician: Dev Morley MD GFR/1.73 sq M.predicted among non-blacks MDRD (S/P/Bld) [Vol rate/Area] 88 mL/min/{1.73_m2} Normal >60 [facility] Comment on above: Result Comment: These [...] #### C REG, CDP, LIVP, SED #### [facility] [address] [place], [place] [id number] Maintenance Department Technician: Dev Morley MD Liver Profileon 11-11-2023 Albumin [Mass/Vol] 4.1 g/dL Normal 3.5-5.2 [facility] Comment on above: Performed By: #### C REG, CDP, LIVP, SED #### [facility] [address] [place], [place] [id number] Maintenance Department Technician: Dev Morley MD Alkaline Phos 89 U/L Normal 35-104 [facility] Comment on above: Performed By: #### C REG, CDP, LIVP, SED #### [facility] [address] [place], [place] [id number] Maintenance Department Technician: Dev Morley MD ALT [Catalytic activity/Vol] 19 U/L Normal 5-33 [facility] Comment on above: Performed By: #### C REG, CDP, LIVP, SED #### [facility] [address] [place], [place] [id number] Maintenance Department Technician: Dev Morley MD AST [Catalytic activity/Vol] 16 U/L Normal <32 [facility] Comment on above: Performed By: #### C REG, CDP, LIVP, SED #### [facility] [address] [place], [place] [id number] Maintenance Department Technician: Dev Morley MD Bilirubin [Mass/Vol] 0.3 mg/dL Normal 0.3-1.2 [facility] Comment on above: Performed By: #### C REG, CDP, LIVP, SED #### [facility] [address] [place] [address] Maintenance Department Technician: Dev Morley MD Bilirubin, Indirect Can not be calculated Normal 0.0-1.0 [facility] Comment on above: Performed By: #### C REG, CDP, LIVP, SED #### [facility] [address] [place] [address] Maintenance Department Technician: Dev Morley MD Bilirubin.indirect [Mass/Vol] mg/dL Normal <0.3 [facility] Comment on above: Performed By: #### C REG, CDP, LIVP, SED #### [facility] [address] [place] [id number] Maintenance Department Technician: Dev Morley MD Protein [Mass/Vol] 7.5 g/dL Normal 6.4-8.3 [facility] Comment on above: Performed By: #### C REG, CDP, LIVP, SED #### [facility] [address] [place] [phone] Maintenance Department Technician: Dev Morley MD Sedimentation Rateon 024 Sedimentation Rate 31 mm/Hr High 0-20 [facility] Comment on above: Performed By: #### C REG, CDP, LIVP, SED #### [facility] [address] [place] [id number] Maintenance Department Technician: Dev Morley MD CBC with Diffon 02-29-2024 Abs. Basophil 0.02 k/uL Normal 0.00-0.20 [facility] Comment on above: Performed By: #### L IVP, SED, CREG, CDP #### [facility] [address] [place] [id number] Maintenance Department Technician: Dev Morley MD Abs.Imm.Granulocyte 0.01 k/uL Normal 0.00-0.30 [facility] Comment on above: Performed By: #### L IVP, SED, CREG, CDP #### [facility] [address] [place] [address] Maintenance Department Technician: Dev Morley MD Abs.Neutrophil (Seg) 2.96 k/uL Normal 2.5-7.0 [facility] Comment on above: Performed By: #### L IVP, SED, CREG, CDP #### [facility] [address] [place] [address] Maintenance Department Technician: Dev Morley MD Basophils/100 WBC (Bld) 0 % Normal 0-2 [facility] Comment on above: Performed By: #### L IVP, SED, CREG, CDP #### [facility] [address] [place] [address] Maintenance Department Technician: Dev Morley MD Eosinophils (Bld) [#/Vol] 0.12 10*3/uL Normal 0.00-0.40 [facility] Comment on above: Performed By: #### L IVP, SED, CREG, CDP #### [facility] [address] [place] [id number] Maintenance Department Technician: Dev Morley MD Eosinophils/100 WBC (Bld) 2 % Normal 0-5 [facility] Comment on above: Performed By: #### L IVP, SED, CREG, CDP #### [facility] [address] [place] [id number] Maintenance Department Technician: Dev Morley MD Erythrocyte distribution width (RBC) [Ratio] 11.8 % Low 12.1-15.2 [facility] Comment on above: Performed By: #### L IVP, SED, CREG, CDP #### [facility] [address] [place] [address] Maintenance Department Technician: Dev Morley MD Hematocrit (Bld) [Volume fraction] 42.6 % Normal 36.0-46.0 [facility] Comment on above: Performed By: #### L IVP, SED, CREG, CDP #### [facility] [address] [place], [place] [id number] Maintenance Department Technician: Dev Morley MD Hemoglobin (Bld) [Mass/Vol] 14.7 g/dL Normal 12.0-16.0 [facility] Comment on above: Performed By: #### L IVP, SED, CREG, CDP #### [facility] [address] [place] [address] Maintenance Department Technician: Dev Morley MD Immature granulocytes/100 WBC (Bld) 0 % Normal 0-5 [facility] Comment on above: Performed By: #### L IVP, SED, CREG, CDP #### [facility] [address] [place] [address] Maintenance Department Technician: Dev Morley MD Lymphocytes (Bld) [#/Vol] 1.85 10*3/uL Normal 1.00-4.80 [facility] Comment on above: Performed By: #### L IVP, SED, CREG, CDP #### [facility] [address] [place] [address] Maintenance Department Technician: Dev Morley MD Lymphocytes/100 WBC (Bld) 35 % Normal 15-40 [facility] Comment on above: Performed By: #### L IVP, SED, CREG, CDP #### [facility] [address] [place] [address] Maintenance Department Technician: Dev Morley MD MCH (RBC) [Entitic mass] 28.9 pg Normal 26.0-34.0 [facility] Comment on above: Performed By: #### L IVP, SED, CREG, CDP #### [facility] [address] [place] [address] Maintenance Department Technician: Dev Morley MD MCHC (RBC) [Mass/Vol] 34.5 g/dL Normal 31.0-37.0 [facility] Comment on above: Performed By: #### L IVP, SED, CREG, CDP #### [facility] [address] [place] [address] Maintenance Department Technician: Dev Morley MD MCV (RBC) [Entitic vol] 83.7 fL Normal 80.0-100.0 [facility] Comment on above: Performed By: #### L IVP, SED, CREG, CDP #### [facility] [address] [place] [id number] Maintenance Department Technician: Dev Morley MD Monocytes (Bld) [#/Vol] 0.41 10*3/uL Normal 0.00-1.00 [facility] Comment on above: Performed By: #### L IVP, SED, CREG, CDP #### [facility] [address] [place] [address] Maintenance Department Technician: Dev Morley MD Monocytes/100 WBC (Bld) 8 % Normal 4-8 [facility] Comment on above: Performed By: #### L IVP, SED, CREG, CDP #### [facility] [address] [id number] Maintenance Department Technician: Dev Morley MD Neutrophil (Seg) 55 % Normal 47-75 [facility] Comment on above: Performed By: #### L IVP, SED, CREG, CDP #### [facility] [address] [id number] [phone] Maintenance Department Technician: Dev Morley MD Platelet mean volume (Bld) [Entitic vol] 9.1 fL Normal 6.0-12.0 [facility] Comment on above: Performed By: #### L IVP, SED, CREG, CDP #### [facility] [address] [place] [address] Maintenance Department Technician: Dev Morley MD Platelets (Bld) [#/Vol] 228 10*3/uL Normal 140-450 [facility] Comment on above: Performed By: #### L IVP, SED, CREG, CDP #### [facility] [address] [place] [address] Maintenance Department Technician: Dev Morley MD RBC (Bld) [#/Vol] 5.09 10*6/uL Normal 4.00-5.20 [facility] Comment on above: Performed By: #### L IVP, SED, CREG, CDP #### [facility] [address] [place] [address] Maintenance Department Technician: Dev Morley MD WBC (Bld) [#/Vol] 5.4 10*3/uL Normal 3.5-11.0 [facility] Comment on above: Performed By: #### L IVP, SED, CREG, CDP #### [facility] [address] [id number] Maintenance Department Technician: Dev Morley MD Creatinine w/GFRon 4 Creatinine [Mass/Vol] 0.8 mg/dL Normal 0.5-0.9 [facility] Comment on above: Performed By: #### C REG, LIVP, SED, CDP #### [facility] [address] [place] [address] Maintenance Department Technician: Dev Morley MD GFR/1.73 sq M.predicted among non-blacks MDRD (S/P/Bld) [Vol rate/Area] mL/min/{1.73_m2} Normal >60 [facility] Comment on above: Result Comment: These [...] #### C REG, LIVP, SED, CDP #### [facility] [address] [place] [address] Maintenance Department Technician: Dev Morley MD Liver Profileon 09-23-2023 Albumin [Mass/Vol] 4.0 g/dL Normal 3.5-5.2 [facility] Comment on above: Performed By: #### C REG, LIVP, SED, CDP #### [facility] [address] [place] [address] Maintenance Department Technician: Dev Morley MD Alkaline Phos 92 U/L Normal 35-104 [facility] Comment on above: Performed By: #### C REG, LIVP, SED, CDP #### [facility] [address] [place] [address] Maintenance Department Technician: Dev Morley MD ALT [Catalytic activity/Vol] 32 U/L Normal 5-33 [facility] Comment on above: Performed By: #### C REG, LIVP, SED, CDP #### [facility] [address] [place] [address] Maintenance Department Technician: Dev Morley MD AST [Catalytic activity/Vol] 25 U/L Normal <32 [facility] Comment on above: Performed By: #### C REG, LIVP, SED, CDP #### [facility] [address] [place] [address] Maintenance Department Technician: Dev Morley MD Bilirubin [Mass/Vol] 0.2 mg/dL Low 0.3-1.2 [facility] Comment on above: Performed By: #### C REG, LIVP, SED, CDP #### [facility] [address] [id number] Maintenance Department Technician: Dev Morley MD Bilirubin, Indirect Can not be calculated Normal 0.0-1.0 [facility] Comment on above: Performed By: #### C REG, LIVP, SED, CDP #### [facility] [address] [id number] Maintenance Department Technician: Dev Morley MD Bilirubin.indirect [Mass/Vol] mg/dL Normal <0.3 [facility] Comment on above: Performed By: #### C REG, LIVP, SED, CDP #### [facility] [address] [id number] Maintenance Department Technician: Dev Morley MD Protein [Mass/Vol] 7.3 g/dL Normal 6.4-8.3 [facility] Comment on above: Performed By: #### C REG, LIVP, SED, CDP #### [facility] [address] [id number] Maintenance Department Technician: Dev Morley MD Sedimentation Rateon 024 Sedimentation Rate 16 mm/Hr Normal 0-20 [facility] Comment on above: Performed By: #### L IVP, SED, CREG, CDP #### [facility] [address] [id number] Maintenance Department Technician: Dev Morley MD CBC with Auto Differentialon 09-08-2023 Basophils (Bld) [#/Vol] 0.02 10*3/uL [facility] Basophils/100 WBC (Bld) 0 % 0 - 2 % [facility] Eosinophils (Bld) [#/Vol] 0.11 10*3/uL [facility] Eosinophils/100 WBC (Bld) 1 % 0 - 5 % [facility] Erythrocyte distribution width (RBC) [Ratio] 12.1 % 12.1 - 15.2 % [facility] Hematocrit (Bld) [Volume fraction] 42.6 % 36.0 - 46.0 % [facility] Hemoglobin (Bld) [Mass/Vol] 14.6 g/dL 12.0 - 16.0 g/dL [facility] Immature granulocytes (Bld) [#/Vol] 0.00 10*3/uL [facility] Immature granulocytes/100 WBC (Bld) 0 % 0 - 5 % [facility] Lymphocytes/100 WBC (Bld) 31 % 15 - 40 % [facility] Lymphocytes/100 WBC (Bld) 2.56 % [facility] MCH (RBC) [Entitic mass] 29.3 pg 26. 0 - 34.0 pg [facility] MCHC (RBC) [Mass/Vol] 34.3 g/dL 31.0 - 37.0 g/dL [facility] MCV (RBC) [Entitic vol] 85.5 fL 80.0 - 100.0 fL [facility] Monocytes/100 WBC (Bld) 6 % 4 - 8 % [facility] Monocytes/100 WBC (Bld) 0.49 % [facility] Neutrophils/100 WBC (Bld) 62 % 47 - 75 % [facility] Platelet mean volume (Bld) [Entitic vol] 9.2 fL 6.0 - 12.0 fL [facility] Platelets (Bld) [#/Vol] 248 10*3/uL [facility] RBC (Bld) [#/Vol] 4.98 10*6/uL 4.00 - 5.2 0 m/uL [facility] Segmented neutrophils/100 WBC (Bld) 5.18 % [facility] WBC other (Bld) [#/Vol] 8.4 [facility] CBC with Diffon 09-08-2023 Abs. Basophil 0.02 k/uL Normal 0.00-0.20 [facility] Comment on above: Performed By: #### C REG, LIVP, SED, CDP #### [facility] [address] [place] [address] Maintenance Department Technician: Dev Morley MD Abs.Imm.Granulocyte 0.00 k/uL Normal 0.00-0.30 [facility] Comment on above: Performed By: #### C REG, LIVP, SED, CDP #### [facility] [address] [phone] Maintenance Department Technician: Dev Morley MD Abs.Neutrophil (Seg) 5.18 k/uL Normal 2.5-7.0 [facility] Comment on above: Performed By: #### C REG, LIVP, SED, CDP #### [facility] [address] [place] [address] Maintenance Department Technician: Dev Morley MD Basophils/100 WBC (Bld) 0 % Normal 0-2 [facility] Comment on above: Performed By: #### C REG, LIVP, SED, CDP #### [facility] [address] [id number] Maintenance Department Technician: Dev Morley MD Eosinophils (Bld) [#/Vol] 0.11 10*3/uL Normal 0.00-0.40 [facility] Comment on above: Performed By: #### C REG, LIVP, SED, CDP #### [facility] [address] [place] [address] Maintenance Department Technician: Dev Morley MD Eosinophils/100 WBC (Bld) 1 % Normal 0-5 [facility] Comment on above: Performed By: #### C REG, LIVP, SED, CDP #### [facility] [address] [place] [address] Maintenance Department Technician: Dev Morley MD Erythrocyte distribution width (RBC) [Ratio] 12.1 % Normal 12.1-15.2 [facility] Comment on above: Performed By: #### C REG, LIVP, SED, CDP #### [facility] [address] [place] [address] Maintenance Department Technician: Dev Morley MD Hematocrit (Bld) [Volume fraction] 42.6 % Normal 36.0-46.0 [facility] Comment on above: Performed By: #### C REG, LIVP, SED, CDP #### [facility] [address] [place] [address] Maintenance Department Technician: Dev Morley MD Hemoglobin (Bld) [Mass/Vol] 14.6 g/dL Normal 12.0-16.0 [facility] Comment on above: Performed By: #### C REG, LIVP, SED, CDP #### [facility] [address] [place] [address] Maintenance Department Technician: Dev Morley MD Immature granulocytes/100 WBC (Bld) 0 % Normal 0-5 [facility] Comment on above: Performed By: #### C REG, LIVP, SED, CDP #### [facility] [address] [place] [address] Maintenance Department Technician: Dev Morley MD Lymphocytes (Bld) [#/Vol] 2.56 10*3/uL Normal 1.00-4.80 [facility] Comment on above: Performed By: #### C REG, LIVP, SED, CDP #### [facility] [address] [phone] Maintenance Department Technician: Dev Morley MD Lymphocytes/100 WBC (Bld) 31 % Normal 15-40 [facility] Comment on above: Performed By: #### C REG, LIVP, SED, CDP #### [facility] [address] [phone] Maintenance Department Technician: Dev Morley MD MCH (RBC) [Entitic mass] 29.3 pg Normal 26.0-34.0 [facility] Comment on above: Performed By: #### C REG, LIVP, SED, CDP #### [facility] [address] [place] [address] Maintenance Department Technician: Dev Morley MD MCHC (RBC) [Mass/Vol] 34.3 g/dL Normal 31.0-37.0 [facility] Comment on above: Performed By: #### C REG, LIVP, SED, CDP #### [facility] [address] [place] [address] Maintenance Department Technician: Dev Morley MD MCV (RBC) [Entitic vol] 85.5 fL Normal 80.0-100.0 [facility] Comment on above: Performed By: #### C REG, LIVP, SED, CDP #### [facility] [address] [place] [address] Maintenance Department Technician: Dev Morley MD Monocytes (Bld) [#/Vol] 0.49 10*3/uL Normal 0.00-1.00 [facility] Comment on above: Performed By: #### C REG, LIVP, SED, CDP #### [facility] [address] [place] [address] Maintenance Department Technician: Dev Morley MD Monocytes/100 WBC (Bld) 6 % Normal 4-8 [facility] Comment on above: Performed By: #### C REG, LIVP, SED, CDP #### [facility] [address] [place] [address] Maintenance Department Technician: Dev Morley MD Neutrophil (Seg) 62 % Normal 47-75 [facility] Comment on above: Performed By: #### C REG, LIVP, SED, CDP #### [facility] [address] [place] [address] Maintenance Department Technician: Dev Morley MD Platelet mean volume (Bld) [Entitic vol] 9.2 fL Normal 6.0-12.0 [facility] Comment on above: Performed By: #### C REG, LIVP, SED, CDP #### [facility] [address] [place], [place] [id number] Maintenance Department Technician: Dev Morley MD Platelets (Bld) [#/Vol] 248 10*3/uL Normal 140-450 [facility] Comment on above: Performed By: #### C REG, LIVP, SED, CDP #### [facility] [address] [place], [place] [id number] Maintenance Department Technician: Dev Morley MD RBC (Bld) [#/Vol] 4.98 10*6/uL Normal 4.00-5.20 [facility] Comment on above: Performed By: #### C REG, LIVP, SED, CDP #### [facility] [address] [id number] Maintenance Department Technician: Dev Morley MD WBC (Bld) [#/Vol] 8.4 10*3/uL Normal 3.5-11.0 [facility] Comment on above: Performed By: #### C REG, LIVP, SED, CDP #### [facility] [address] [phone] Maintenance Department Technician: Dev Morley MD Creatinineon 09-08-2023 Creatinine [Mass/Vol] 0.8 mg/dL 0.5 - 0.9 mg/dL [facility] GFR/1.73 sq M.predicted MDRD (S/P/Bld) [Vol rate/Area] - PINF [facility] Comment on above: These results are not [...] w/GFRon Creatinine [Mass/Vol] 0.8 mg/dL Normal 0.5-0.9 [facility] Comment on above: Performed By: #### C REG, LIVP, SED, CDP #### [facility] [address] [place] [address] Maintenance Department Technician: Dev Morley MD GFR/1.73 sq M.predicted among non-blacks MDRD (S/P/Bld) [Vol rate/Area] mL/min/{1.73_m2} Normal >60 [facility] Comment on above: Result Comment: These [...] #### C REG, LIVP, SED, CDP #### [facility] [address] [place] [address] Maintenance Department Technician: Dev Morley MD Hepatic Function Panelon Albumin [Mass/Vol] 4.5 g/dL 3.5 - 5.2 g/dL [facility] ALP [Catalytic activity/Vol] 80 U/L 35 - 104 U/L [facility] ALT [Catalytic activity/Vol] 22 U/L 5 - 33 U/L [facility] AST [Catalytic activity/Vol] 17 U/L NINF - 32 U/L [facility] Bilirubin [Mass/Vol] 0.2 mg/dL Low 0.3 - 1 .2 mg/dL [facility] Bilirubin.direct [Mass/Vol] mg/dL NINF - 0.3 mg/dL [facility] Bilirubin.indirect [Mass/Vol] Can not be calculated 0.0 - 1.0 mg/dL [facility] Interpretation and review of laboratory results Abnormal [facility] Protein [Mass/Vol] 7.7 g/dL 6.4 - 8.3 g/dL [facility] Liver Profileon 09-08-2023 Albumin [Mass/Vol] 4.5 g/dL Normal 3.5-5.2 [facility] Comment on above: Performed By: #### C REG, LIVP, SED, CDP #### [facility] [address] [place], [place] [id number] Maintenance Department Technician: Dev Morley MD Alkaline Phos 80 U/L Normal 35-104 [facility] Comment on above: Performed By: #### C REG, LIVP, SED, CDP #### [facility] [address] [place], [place] [id number] Maintenance Department Technician: Dev Morley MD ALT [Catalytic activity/Vol] 22 U/L Normal 5-33 [facility] Comment on above: Performed By: #### C REG, LIVP, SED, CDP #### [facility] [address] [place] [address] Maintenance Department Technician: Dev Morley MD AST [Catalytic activity/Vol] 17 U/L Normal <32 [facility] Comment on above: Performed By: #### C REG, LIVP, SED, CDP #### [facility] [address] [place] [address] Maintenance Department Technician: Dev Morley MD Bilirubin [Mass/Vol] 0.2 mg/dL Low 0.3-1.2 [facility] Comment on above: Performed By: #### C REG, LIVP, SED, CDP #### [facility] [address] [place] [address] Maintenance Department Technician: Dev Morley MD Bilirubin, Indirect Can not be calculated Normal 0.0-1.0 [facility] Comment on above: Performed By: #### C REG, LIVP, SED, CDP #### [facility] [address] [place] [address] Maintenance Department Technician: Dev Morley MD Bilirubin.indirect [Mass/Vol] mg/dL Normal <0.3 [facility] Comment on above: Performed By: #### C REG, LIVP, SED, CDP #### [facility] [address] [place], [place] [id number] Maintenance Department Technician: Dev Morley MD Protein [Mass/Vol] 7.7 g/dL Normal 6.4-8.3 [facility] Comment on above: Performed By: #### C REG, LIVP, SED, CDP #### [facility] [address] [place], [place] [id number] Maintenance Department Technician: Dev Morley MD No Panel Informationon 09-08 [facility] Sedimentation Rateon 024 ESR Photometric method (Bld) [Velocity] 17 [facility] Sedimentation Rate 17 mm/Hr Normal 0-20 [facility] Comment on above: Performed By: #### C REG, LIVP, SED, CDP #### [facility] [address] [place], [place] [id number] Maintenance Department Technician: Dev Morley MD Alanine aminotransferase [En zymatic activity/volume] in Serum or PlasmaOrdered By: Amor Judd on 06-21-2023 ALT [Catalytic activity/Vol] 18 U/L 7-52 [facility] Albumin [Mass/volume] in Ser um or Plasma by Bromocresol green (BCG) dye binding methoOrdered By: Amor Judd on 06-21-2023 Albumin BCG dye [Mass/Vol] 4.4 g/dL 3.5-5.7 [facility] Alkaline phosphatase [Enzyma tic activity/volume] in Serum or PlasmaOrdered By: Amor Judd on 06-21-2023 ALP [Catalytic activity/Vol] 72 U/L 34-104 [facility] Aspartate aminotransferase [ Enzymatic activity/volume] in Serum or PlasmaOrdered By: Amor Judd on 06-21-2023 AST [Catalytic activity/Vol] 15 U/L 13-39 [facility] Automated erythrocytes count in urine sediment (number/area)Ordered By: Amor Judd on 06-21-2023 RBC Auto (Urine sed) [#/Area] 3-4 [HPF] 0-4 [facility] Automated leukocytes count i n urine sediment (number/area)Ordered By: Amor Judd on 06-21-2023 WBC Auto (Urine sed) [#/Area] 1-2 [HPF] 0-4 [facility] Basophils Auto (Bld) [#/Vol] Ordered By: Amor Judd on 06-21-2023 Basophils (Bld) [#/Vol] 0.0 10*3/uL 0.0-0.2 [facility] Basophils/100 WBC Auto (Bld) Ordered By: Amor Judd on 06-21-2023 Basophils/100 WBC (Bld) 0.4 % . [facility] Bilirubin Test strip Ql (U)O rdered By: Amor Judd on 06-21-2023 Bilirubin Ql (U) Negative Negative [facility] Bilirubin.total [Mass/volume ] in Serum or PlasmaOrdered By: Amor Judd on 06-21-2023 Bilirubin [Mass/Vol] 0.2 mg/dL 0.3-1.0 [facility] C reactive protein [Mass/vol ume] in Serum or PlasmaOrdered By: Amor Judd on 06-21-2023 CRP [Mass/Vol] 2.0 mg/dL 0.0-0.5 [facility] C-Reactive Proteinon 023 C-Reactive Protein 2.0 mg/dL High 0.0-0.5 [facility] Comment on above: Result Comment: PERF ORMED BY: [facility] [address] [address] PATH[employer] LUKAS COLE M.D. Performed By: #### C 4, C3, HCV RX PCR, HBCAB, HBSAB, HBSAG ####[facility] ,#### ESR, CBC, CRP, ADDONUAPLUS, CMP ####[facility] [id number] [id number] [facility] Calcium [Mass/volume] in Ser um or PlasmaOrdered By: Amor Judd on 06-21-2023 Calcium [Mass/Vol] 9.3 mg/dL 8.6-10.3 [facility] Carbon dioxide, total [Moles /volume] in Serum or PlasmaOrdered By: Amor Judd on 06-21-2023 CO2 [Moles/Vol] 27.2 mmol/L 21.0-31.0 [facility] Chloride [Moles/volume] in S tamika or PlasmaOrdered By: Amor Judd on 06-21-2023 Chloride [Moles/Vol] 106 mmol/L 98-107 [facility] Color Auto (U)Ordered By: Toyin Judd on 06-21-2023 Color (U) Yellow Yellow [facility] Complement C3on 06-21-2023 Complement C3 180 mg/dL High 82-167 [facility] Comment on above: Result Comment: Perf ormed at: - [facility] [address] [id number] Maintenance Department Technician: Raul Mckeon PhD, Phone: [phone] Performed By: #### C 4, C3, HCV RX PCR, HBCAB, HBSAB, HBSAG ####[facility] ,#### ESR, CBC, CRP, ADDONUAPLUS, CMP ####[address] Complement C4on 06-21-2023 Complement C4 25 mg/dL Normal 12-38 [facility] Comment on above: Result Comment: PERF ORMED BY: [facility] [address] [place] [address] [employer] LUKAS COLE M.D. Performed By: #### C 4, C3, HCV RX PCR, HBCAB, HBSAB, HBSAG ####[facility] ,#### ESR, CBC, CRP, ADDONUAPLUS, CMP ####[address] Complete Blood Count Auto Di ffon 06-21-2023 Basophils (Bld) [#/Vol] 0.0 10*3/uL Normal 0.0-0.2 [facility] Comment on above: Performed By: #### C 4, C3, HCV RX PCR, HBCAB, HBSAB, HBSAG ####[facility] ,#### ESR, CBC, CRP, ADDONUAPLUS, CMP ####[address] Basophils/100 WBC (Bld) 0.4 % Normal . T jamaal [facility] Comment on above: Performed By: #### C 4, C3, HCV RX PCR, HBCAB, HBSAB, HBSAG ####[facility] ,#### ESR, CBC, CRP, ADDONUAPLUS, CMP ####[address] Eosinophils (Bld) [#/Vol] 0.1 10*3/uL Normal 0.0-0.45 [facility] Comment on above: Performed By: #### C 4, C3, HCV RX PCR, HBCAB, HBSAB, HBSAG ####[facility] ,#### ESR, CBC, CRP, ADDONUAPLUS, CMP ####[address] Eosinophils/100 WBC (Bld) 1.2 % Normal . [facility] Comment on above: Performed By: #### C 4, C3, HCV RX PCR, HBCAB, HBSAB, HBSAG ####[facility] ,#### ESR, CBC, CRP, ADDONUAPLUS, CMP ####[address] Erythrocyte distribution width (RBC) [Ratio] 12.6 % Normal 11.9-15.3 [facility] Comment on above: Performed By: #### C 4, C3, HCV RX PCR, HBCAB, HBSAB, HBSAG ####[facility] ,#### ESR, CBC, CRP, ADDONUAPLUS, CMP ####[address] Hematocrit (Bld) [Volume fraction] 40.9 % Normal 34.0-46.4 [facility] Comment on above: Performed By: #### C 4, C3, HCV RX PCR, HBCAB, HBSAB, HBSAG ####[facility] ,#### ESR, CBC, CRP, ADDONUAPLUS, CMP ####[address] Hemoglobin (Bld) [Mass/Vol] 14.0 g/dL Normal 11.8-15.4 [facility] Comment on above: Performed By: #### C 4, C3, HCV RX PCR, HBCAB, HBSAB, HBSAG ####[facility] ,#### ESR, CBC, CRP, ADDONUAPLUS, CMP ####[address] Lymphocytes (Bld) [#/Vol] 2.0 10*3/uL Normal 1.00-4.8 [facility] Comment on above: Performed By: #### C 4, C3, HCV RX PCR, HBCAB, HBSAB, HBSAG ####[facility] ,#### ESR, CBC, CRP, ADDONUAPLUS, CMP ####[address] Lymphocytes/100 WBC (Bld) 22.1 % Normal . [facility] Comment on above: Performed By: #### C 4, C3, HCV RX PCR, HBCAB, HBSAB, HBSAG ####[facility] ,#### ESR, CBC, CRP, ADDONUAPLUS, CMP ####[address] MCH (RBC) [Entitic mass] 29.6 pg Normal 24.7-34.3 [facility] Comment on above: Performed By: #### C 4, C3, HCV RX PCR, HBCAB, HBSAB, HBSAG ####[facility] ,#### ESR, CBC, CRP, ADDONUAPLUS, CMP ####[address] MCV (RBC) [Entitic vol] 86.2 fL Normal 80-100 [facility] Comment on above: Performed By: #### C 4, C3, HCV RX PCR, HBCAB, HBSAB, HBSAG ####[facility] ,#### ESR, CBC, CRP, ADDONUAPLUS, CMP ####[address] Mean Corpuscular HGB Conc 34.3 g/dL Normal 32.0-35.0 [facility] Comment on above: Performed By: #### C 4, C3, HCV RX PCR, HBCAB, HBSAB, HBSAG ####[facility] ,#### ESR, CBC, CRP, ADDONUAPLUS, CMP ####[address] Monocytes (Bld) [#/Vol] 0.4 10*3/uL Normal 0.0-0.8 [facility] Comment on above: Performed By: #### C 4, C3, HCV RX PCR, HBCAB, HBSAB, HBSAG ####[facility] ,#### ESR, CBC, CRP, ADDONUAPLUS, CMP ####[address] Monocytes/100 WBC (Bld) 4.3 % Normal . [facility] Comment on above: Performed By: #### C 4, C3, HCV RX PCR, HBCAB, HBSAB, HBSAG ####[facility] ,#### ESR, CBC, CRP, ADDONUAPLUS, CMP ####[address] Neutrophils (Bld) [#/Vol] 6.4 10*3/uL Normal 1.8-7.7 [facility] Comment on above: Performed By: #### C 4, C3, HCV RX PCR, HBCAB, HBSAB, HBSAG ####[facility] ,#### ESR, CBC, CRP, ADDONUAPLUS, CMP ####[address] Neutrophils/100 WBC (Bld) 72.0 % Normal . [facility] Comment on above: Performed By: #### C 4, C3, HCV RX PCR, HBCAB, HBSAB, HBSAG ####[facility] ,#### ESR, CBC, CRP, ADDONUAPLUS, CMP ####[address] NRBC% 0.1 /100{WBC} Normal 0-0.5 [facility] Comment on above: Performed By: #### C 4, C3, HCV RX PCR, HBCAB, HBSAB, HBSAG ####[facility] ,#### ESR, CBC, CRP, ADDONUAPLUS, CMP ####[address] Platelet mean volume (Bld) [Entitic vol] 7.9 fL Normal 6.3-10.7 [facility] Comment on above: Performed By: #### C 4, C3, HCV RX PCR, HBCAB, HBSAB, HBSAG ####[facility] ,#### ESR, CBC, CRP, ADDONUAPLUS, CMP ####[address] Platelets (Bld) [#/Vol] 310 10*3/uL Normal 150-450 [facility] Comment on above: Performed By: #### C 4, C3, HCV RX PCR, HBCAB, HBSAB, HBSAG ####[facility] ,#### ESR, CBC, CRP, ADDONUAPLUS, CMP ####[address] RBC (Bld) [#/Vol] 4.75 10*6/uL Normal 3.60-5.00 [facility] Comment on above: Performed By: #### C 4, C3, HCV RX PCR, HBCAB, HBSAB, HBSAG ####[facility] ,#### ESR, CBC, CRP, ADDONUAPLUS, CMP ####[address] WBC (Bld) [#/Vol] 8.9 10*3/uL Normal 3.8-11.6 [facility] Comment on above: Performed By: #### C 4, C3, HCV RX PCR, HBCAB, HBSAB, HBSAG ####[facility] ,#### ESR, CBC, CRP, ADDONUAPLUS, CMP ####[address] Comprehensive Metabolic Pane aydee 06-21-2023 Albumin [Mass/Vol] 4.4 g/dL Normal 3.5-5.7 [facility] Comment on above: Performed By: #### C 4, C3, HCV RX PCR, HBCAB, HBSAB, HBSAG #### [facility] , #### ESR, CBC, CRP, ADDONUAPLUS, CMP #### [address] Albumin/Globulin [Mass ratio] 1.6 {ratio} Normal [facility] Comment on above: Performed By: #### C 4, C3, HCV RX PCR, HBCAB, HBSAB, HBSAG #### [facility] , #### ESR, CBC, CRP, ADDONUAPLUS, CMP #### [address] ALP [Catalytic activity/Vol] 72 U/L Normal 34-104 [facility] Comment on above: Performed By: #### C 4, C3, HCV RX PCR, HBCAB, HBSAB, HBSAG #### [facility] , #### ESR, CBC, CRP, ADDONUAPLUS, CMP #### [address] ALT [Catalytic activity/Vol] 18 U/L Normal 7-52 [facility] Comment on above: Performed By: #### C 4, C3, HCV RX PCR, HBCAB, HBSAB, HBSAG #### [facility] , #### ESR, CBC, CRP, ADDONUAPLUS, CMP #### [address] Anion gap [Moles/Vol] 9.8 mmol/L Normal 6.0-15.0 [facility] Comment on above: Performed By: #### C 4, C3, HCV RX PCR, HBCAB, HBSAB, HBSAG #### [facility] , #### ESR, CBC, CRP, ADDONUAPLUS, CMP #### [address] AST [Catalytic activity/Vol] 15 U/L Normal 13-39 [facility] Comment on above: Performed By: #### C 4, C3, HCV RX PCR, HBCAB, HBSAB, HBSAG #### [facility] , #### ESR, CBC, CRP, ADDONUAPLUS, CMP #### [address] Bilirubin [Mass/Vol] 0.2 mg/dL Low 0.3-1.0 [facility] Comment on above: Performed By: #### C 4, C3, HCV RX PCR, HBCAB, HBSAB, HBSAG #### [facility] , #### ESR, CBC, CRP, ADDONUAPLUS, CMP #### [address] Calcium [Mass/Vol] 9.3 mg/dL Normal 8.6-10.3 [facility] Comment on above: Performed By: #### C 4, C3, HCV RX PCR, HBCAB, HBSAB, HBSAG #### [facility] , #### ESR, CBC, CRP, ADDONUAPLUS, CMP #### [address] Chloride [Moles/Vol] 106 mmol/L Normal 98-107 [facility] Comment on above: Performed By: #### C 4, C3, HCV RX PCR, HBCAB, HBSAB, HBSAG #### [facility] , #### ESR, CBC, CRP, ADDONUAPLUS, CMP #### [address] CO2 [Moles/Vol] 27.2 mmol/L Normal 21.0-31.0 [facility] Comment on above: Performed By: #### C 4, C3, HCV RX PCR, HBCAB, HBSAB, HBSAG #### [facility] , #### ESR, CBC, CRP, ADDONUAPLUS, CMP #### [address] Creatinine [Mass/Vol] 0.84 mg/dL Normal 0.60-1.20 [facility] Comment on above: Performed By: #### C 4, C3, HCV RX PCR, HBCAB, HBSAB, HBSAG #### [facility] , #### ESR, CBC, CRP, ADDONUAPLUS, CMP #### [address] GFR/1.73 sq M.predicted MDRD (S/P/Bld) [Vol rate/Area] mL/min/{1.73_m2} Normal [facility] Comment on above: Performed By: #### C 4, C3, HCV RX PCR, HBCAB, HBSAB, HBSAG #### [facility] , #### ESR, CBC, CRP, ADDONUAPLUS, CMP #### [address] Globulin (S) [Mass/Vol] 2.7 g/dL Normal T [facility] Comment on above: Performed By: #### C 4, C3, HCV RX PCR, HBCAB, HBSAB, HBSAG #### [facility] , #### ESR, CBC, CRP, ADDONUAPLUS, CMP #### [address] Glucose [Mass/Vol] 92 mg/dL Normal 70-100 [facility] Comment on above: Result Comment: [facility] Glucose Reference Range is dependent on time and content of last meal. Glucose of more than 200 mg/dL in a nonstressed, ambulatory subject supports the diagnosis of Diabetes Mellitus. ADA recommended reference range Performed By: #### C 4, C3, HCV RX PCR, HBCAB, HBSAB, HBSAG #### [facility] , #### ESR, CBC, CRP, ADDONUAPLUS, CMP #### [place] [address] [place] Potassium [Moles/Vol] 4.0 mmol/L Normal 3.5-5.1 [facility] Comment on above: Performed By: #### C 4, C3, HCV RX PCR, HBCAB, HBSAB, HBSAG #### [facility] , #### ESR, CBC, CRP, ADDONUAPLUS, CMP #### [address] Protein [Mass/Vol] 7.1 g/dL Normal 6.4-8.9 [facility] Comment on above: Performed By: #### C 4, C3, HCV RX PCR, HBCAB, HBSAB, HBSAG #### [facility] , #### ESR, CBC, CRP, ADDONUAPLUS, CMP #### [place] [address] [place] Sodium [Moles/Vol] 139 mmol/L Normal 136-145 [facility] Comment on above: Performed By: #### C 4, C3, HCV RX PCR, HBCAB, HBSAB, HBSAG #### [facility] , #### ESR, CBC, CRP, ADDONUAPLUS, CMP #### [place] [address] [place] Urea nitrogen [Mass/Vol] 14 mg/dL Normal 7-25 [facility] Comment on above: Performed By: #### C 4, C3, HCV RX PCR, HBCAB, HBSAB, HBSAG #### [facility] , #### ESR, CBC, CRP, ADDONUAPLUS, CMP #### [facility] [address] Creatinine [Mass/volume] in Serum or PlasmaOrdered By: Amor Judd on 06-21-2023 Creatinine [Mass/Vol] 0.84 mg/dL 0.60-1.20 [facility] Dipstick and Microscopicon 1 08-21-2022 Appearance (U) Clear Normal Clear [facility] Comment on above: Order Comment: Name Collection Type:: Clean-Voided Midstream Performed By: #### C 4, C3, HCV RX PCR, HBCAB, HBSAB, HBSAG #### [facility] , #### ESR, CBC, CRP, ADDONUAPLUS, CMP #### [facility] [address] [place] [address] Bacteria,Urine 1+ High None Seen [facility] Comment on above: Order Comment: Name Collection Type:: Clean-Voided Midstream Performed By: #### C 4, C3, HCV RX PCR, HBCAB, HBSAB, HBSAG #### [facility] , #### ESR, CBC, CRP, ADDONUAPLUS, CMP #### [facility] [address] [place] [address] Bilirubin,Urine Negative Normal Negative [facility] Comment on above: Order Comment: Name Collection Type:: Clean-Voided Midstream Performed By: #### C 4, C3, HCV RX PCR, HBCAB, HBSAB, HBSAG #### [facility] , #### ESR, CBC, CRP, ADDONUAPLUS, CMP #### [facility] [address] [place] [address] Color (U) Yellow Normal Yellow [facility] Comment on above: Order Comment: Name Collection Type:: Clean-Voided Midstream Performed By: #### C 4, C3, HCV RX PCR, HBCAB, HBSAB, HBSAG #### [facility] , #### ESR, CBC, CRP, ADDONUAPLUS, CMP #### [address] Glucose Ql (U) Normal Normal Normal [facility] Comment on above: Order Comment: Name Collection Type:: Clean-Voided Midstream Performed By: #### C 4, C3, HCV RX PCR, HBCAB, HBSAB, HBSAG #### [facility] , #### ESR, CBC, CRP, ADDONUAPLUS, CMP #### [address] Hyaline Casts,Urine 0-8 Normal 0-8 [facility] Comment on above: Order Comment: Name Collection Type:: Clean-Voided Midstream Result Comment: PERF ORMED BY: [place] [address] [employer] LUKAS COLE M.D. Performed By: #### C 4, C3, HCV RX PCR, HBCAB, HBSAB, HBSAG #### [facility] , #### ESR, CBC, CRP, ADDONUAPLUS, CMP #### [address] Ketones Ql (U) Negative Normal Negative [facility] Comment on above: Order Comment: Name Collection Type:: Clean-Voided Midstream Performed By: #### C 4, C3, HCV RX PCR, HBCAB, HBSAB, HBSAG #### [facility] , #### ESR, CBC, CRP, ADDONUAPLUS, CMP #### [address] Leukocyte esterase Test strip Ql (U) Negative Normal Negative [facility] Comment on above: Order Comment: Name Collection Type:: Clean-Voided Midstream Performed By: #### C 4, C3, HCV RX PCR, HBCAB, HBSAB, HBSAG #### [facility] , #### ESR, CBC, CRP, ADDONUAPLUS, CMP #### [address] Nitrite,Urine Negative Normal Negative [facility] Comment on above: Order Comment: Name Collection Type:: Clean-Voided Midstream Performed By: #### C 4, C3, HCV RX PCR, HBCAB, HBSAB, HBSAG #### [facility] , #### ESR, CBC, CRP, ADDONUAPLUS, CMP #### [address] Occult Blood,Urine Negative Normal Negative [facility] Comment on above: Order Comment: Name Collection Type:: Clean-Voided Midstream Performed By: #### C 4, C3, HCV RX PCR, HBCAB, HBSAB, HBSAG #### [facility] , #### ESR, CBC, CRP, ADDONUAPLUS, CMP #### [address] pH (U) 7.0 [pH] Normal 5.0-9.0 [facility] Comment on above: Order Comment: Name Collection Type:: Clean-Voided Midstream Performed By: #### C 4, C3, HCV RX PCR, HBCAB, HBSAB, HBSAG #### [facility] , #### ESR, CBC, CRP, ADDONUAPLUS, CMP #### [address] Protein,Urine Negative Normal Negative [facility] Comment on above: Order Comment: Name Collection Type:: Clean-Voided Midstream Performed By: #### C 4, C3, HCV RX PCR, HBCAB, HBSAB, HBSAG #### [facility] , #### ESR, CBC, CRP, ADDONUAPLUS, CMP #### [place] [address] [place] RBC,Urine 3-4 Normal 0-4 [facility] Comment on above: Order Comment: Name Collection Type:: Clean-Voided Midstream Performed By: #### C 4, C3, HCV RX PCR, HBCAB, HBSAB, HBSAG #### [facility] , #### ESR, CBC, CRP, ADDONUAPLUS, CMP #### [address] Specificy [place],Urine 1.021 Normal 1.001-1.030 [facility] Comment on above: Order Comment: Name Collection Type:: Clean-Voided Midstream Performed By: #### C 4, C3, HCV RX PCR, HBCAB, HBSAB, HBSAG #### [facility] , #### ESR, CBC, CRP, ADDONUAPLUS, CMP #### [address] Squamous Epithelial Cell,Urine 0-1 Normal 0-2 [facility] Comment on above: Order Comment: Name Collection Type:: Clean-Voided Midstream Performed By: #### C 4, C3, HCV RX PCR, HBCAB, HBSAB, HBSAG #### [facility] , #### ESR, CBC, CRP, ADDONUAPLUS, CMP #### [address] Urobilinogen,Urine Normal Normal Normal [facility] Comment on above: Order Comment: Name Collection Type:: Clean-Voided Midstream Performed By: #### C 4, C3, HCV RX PCR, HBCAB, HBSAB, HBSAG #### [facility] , #### ESR, CBC, CRP, ADDONUAPLUS, CMP #### [address] WBC,Urine 1-2 Normal 0-4 [facility] Comment on above: Order Comment: Name Collection Type:: Clean-Voided Midstream Performed By: #### C 4, C3, HCV RX PCR, HBCAB, HBSAB, HBSAG #### [facility] , #### ESR, CBC, CRP, ADDONUAPLUS, CMP #### [address] Eosinophils Auto (Bld) [#/Vo l]Ordered By: Amor Judd on 06-21-2023 Eosinophils (Bld) [#/Vol] 0.1 10*3/uL 0.0-0.45 [facility] Eosinophils/100 WBC Auto (Bl d)Ordered By: Amor Judd on 06-21-2023 Eosinophils/100 WBC (Bld) 1.2 % . [facility] Erythrocyte Sedimentation Ra gloria 06-21-2023 ESR (Bld) [Velocity] 23 mm/h High 0-19 [facility] Comment on above: Result Comment: PERF ORMED BY: [facility] [address] [place] [id number] [employer] LUKAS COLE M.D. Performed By: #### C 4, C3, HCV RX PCR, HBCAB, HBSAB, HBSAG ####[facility] ,#### ESR, CBC, CRP, ADDONUAPLUS, CMP ####[facility] [address] [place] [address] [facility] Erythrocyte distribution wid th Auto (RBC) [Ratio]Ordered By: Amor Judd on 06-21-2023 Erythrocyte distribution width (RBC) [Ratio] 12.6 % 11.9-15.3 [facility] Erythrocyte sedimentation ra te by Photometric methodOrdered By: Amor Judd on 06-21-2023 ESR Photometric method (Bld) [Velocity] 23 mm/hr 0-19 [facility] Globulin Calc (S) [Mass/Vol] Ordered By: Amor Judd on 06-21-2023 Globulin (S) [Mass/Vol] 2.7 g/dL [facility] Glucose [Mass/volume] in Ser um or PlasmaOrdered By: Amor Judd on 06-21-2023 Glucose [Mass/Vol] 92 mg/dL 70-100 [facility] Comment on above: ADA recommended refe rence rangeRandom Glucose Reference Range is dependent on time and content of last meal. Glucose of more than 200 mg/dL in a nonstressed, ambulatory subject supports the diagnosis of Diabetes Mellitus. Hematocrit Auto (Bld) [Volum e fraction]Ordered By: Amor Judd on 06-21-2023 Hematocrit (Bld) [Volume fraction] 40.9 % 34.0-46.4 [facility] Hemoglobin [Mass/volume] in BloodOrdered By: Amor Judd on 06-21-2023 Hemoglobin (Bld) [Mass/Vol] 14.0 g/dL 11.8-15.4 [facility] Hep C Ab wRfx to Qnt PCRon 1 08-21-2022 Hepatitis C Virus Antibody Non-Reactive Normal Non Reactive [facility] Comment on above: Performed By: #### C 4, C3, HCV RX PCR, HBCAB, HBSAB, HBSAG ####[facility] ,#### ESR, CBC, CRP, ADDONUAPLUS, CMP ####[place] [id number] [address] Interpretation Hepatitis C Normal . [facility] Comment on above: Result Comment: Not infected with HCV unless early or acute infection is suspected (which may be delayed in an immunocompromised individual), or other evidence exists to indicate HCV infection. Performed By: #### C 4, C3, HCV RX PCR, HBCAB, HBSAB, HBSAG ####[facility] ,#### ESR, CBC, CRP, ADDONUAPLUS, CMP ####[place] [id number] [address] Hepatitis B Core Antibodyon 06-21-2023 Hepatitis B Core Antibody Negative Normal Negative [facility] Comment on above: Result Comment: Perf ormed at: - [facility] [address] [id number] Maintenance Department Technician: Raul Mckeon PhD, Phone: [phone] Performed By: #### C 4, C3, HCV RX PCR, HBCAB, HBSAB, HBSAG ####[facility] ,#### ESR, CBC, CRP, ADDONUAPLUS, CMP ####[address] Hepatitis B Surface Antibody on 06-21-2023 Hepatitis B Surface Antibody Non-Reactive Normal . [facility] Comment on above: Result Comment: Non Reactive: Inconsistent with immunity, less than 10 mIU/mL Reactive: Consistent with immunity, greater than 9.9 mIU/mL Performed By: #### C 4, C3, HCV RX PCR, HBCAB, HBSAB, HBSAG ####[facility] ,#### ESR, CBC, CRP, ADDONUAPLUS, CMP ####[place] [address] [address] Hepatitis B Surface Antigeno n 06-21-2023 HBsAg Screen Negative Normal Negative [facility] Comment on above: Result Comment: PERF ORMED BY: [facility] [address] [place] [address] [employer] LUKAS COLE M.D. Performed By: #### C 4, C3, HCV RX PCR, HBCAB, HBSAB, HBSAG ####[facility] ,#### ESR, CBC, CRP, ADDONUAPLUS, CMP ####[place] [id number] [address] Ketones Auto test strip (U) [Mass/Vol]Ordered By: Amor Judd on 06-21-2023 Ketones (U) [Mass/Vol] Negative Negative [facility] - UrinalysisOrder ed By: Amor Judd on 06-21-2023 Hyaline casts LM Ql (Urine sed) 0-8 [LPF] 0-8 [facility] Leukocytes [#/volume] correc francisco j for nucleated erythrocytes in Blood by Automated counOrdered By: Amor Judd on 06-21-2023 WBC corrected for nucl RBC Auto (Bld) [#/Vol] 8.9 10*3/uL 3.8-11.6 [facility] Lymphocytes Auto (Bld) [#/Vo l]Ordered By: Amor Judd on 06-21-2023 Lymphocytes (Bld) [#/Vol] 2.0 10*3/uL 1.00-4.8 [facility] Lymphocytes/100 WBC Auto (Bl d)Ordered By: Amor Judd on 06-21-2023 Lymphocytes/100 WBC (Bld) 22.1 % . [facility] MCH Auto (RBC) [Entitic mass ]Ordered By: Amor Judd on 06-21-2023 MCH (RBC) [Entitic mass] 29.6 pg 24.7-34.3 [facility] MCHC Auto (RBC) [Mass/Vol]Or dered By: Amor Judd on 06-21-2023 MCHC (RBC) [Mass/Vol] 34.3 g/dL 32.0-35.0 [facility] MCV Auto (RBC) [Entitic vol] Ordered By: Amor Judd on 06-21-2023 MCV (RBC) [Entitic vol] 86.2 fL 80-100 [facility] Monocytes Auto (Bld) [#/Vol] Ordered By: Amor Judd on 06-21-2023 Monocytes (Bld) [#/Vol] 0.4 10*3/uL 0.0-0.8 [facility] Monocytes/100 WBC Auto (Bld) Ordered By: Amor Judd on 06-21-2023 Monocytes/100 WBC (Bld) 4.3 % . [facility] Neutrophils Auto (Bld) [#/Vo l]Ordered By: Amor Judd on 06-21-2023 Neutrophils (Bld) [#/Vol] 6.4 10*3/uL 1.8-7.7 [facility] Neutrophils/100 WBC Auto (Bl d)Ordered By: Amor Judd on 06-21-2023 Neutrophils/100 WBC (Bld) 72.0 % . [facility] Nitrite Test strip Ql (U)Ord ered By: Amor Judd on 06-21-2023 Nitrite Ql (U) Negative Negative [facility] No Panel InformationOrdered By: Amor Judd on 06-21-2023 Estimated GFR (CKD-EPI) > 60.0 mL/Min [facility] Creatinine Clearance (Chem N/A [facility] Nucleated erythrocytes [Pres ence] in Blood by Automated countOrdered By: Amor Judd on 06-21-2023 Nucleated RBC Auto Ql (Bld) 0.1 /100{WBC} 0-0.5 [facility] Platelet mean volume Auto (B ld) [Entitic vol]Ordered By: Amor Judd on 06-21-2023 Platelet mean volume (Bld) [Entitic vol] 7.9 fL 6.3-10.7 [facility] Platelets Auto (Bld) [#/Vol] Ordered By: Amor Judd on 06-21-2023 Platelets (Bld) [#/Vol] 310 10*3/uL 150-450 [facility] Potassium [Moles/volume] in Serum or PlasmaOrdered By: Amor Judd on 06-21-2023 Potassium [Moles/Vol] 4.0 mmol/L 3.5-5.1 [facility] Protein Auto test strip (U) [Mass/Vol]Ordered By: Amor Judd on 06-21-2023 Protein (U) [Mass/Vol] Negative Negative [facility] Protein [Mass/volume] in Ser um or PlasmaOrdered By: Amor Judd on 06-21-2023 Protein [Mass/Vol] 7.1 g/dL 6.4-8.9 [facility] RBC Auto (Bld) [#/Vol]Ordere d By: Amor Judd on 06-21-2023 RBC (Bld) [#/Vol] 4.75 10*6/uL 3.60-5.00 [facility] Serum or plasma albumin/glob ulin mass ratioOrdered By: Amor Judd on 06-21-2023 Albumin/Globulin [Mass ratio] 1.6 {ratio} [facility] Serum or plasma anion gap de terminationOrdered By: Amor Judd on 06-21-2023 Anion gap [Moles/Vol] 9.8 mmol/L 6.0-15.0 [facility] Sodium [Moles/volume] in Ser um or PlasmaOrdered By: Amor Judd on 06-21-2023 Sodium [Moles/Vol] 139 mmol/L 136-145 [facility] Specific gravity Auto test s trip (U) [Rel density]Ordered By: Amor Judd on 06-21-2023 Specific gravity (U) [Rel density] 1.021 1.001-1.030 [facility] Squamous epithelial cells de tection in urine sediment by light microscopyOrdered By: Amor Judd on 06-21-2023 Epithelial cells.squamous LM Ql (Urine sed) 0-1 [HPF] 0-2 [facility] Urea nitrogen [Mass/volume] in Serum or PlasmaOrdered By: Amor Judd on 06-21-2023 Urea nitrogen [Mass/Vol] 14 mg/dL 7-25 [facility] Urine bacteria detection by automated methodOrdered By: Amor Judd on 06-21-2023 Bacteria Auto Ql (U) 1+ None Seen [facility] Urine clarity by refractomet ry automatedOrdered By: Amor Judd on 06-21-2023 Clarity Refractometry automated (U) Clear Clear [facility] Urine glucose measurement by automated test strip (mass/volume)Ordered By: Amor Judd on 06-21-2023 Glucose Auto test strip (U) [Mass/Vol] Normal mg/dL Normal [facility] Urine hemoglobin detection b y automated test stripOrdered By: Amor Judd on 06-21-2023 Hemoglobin Auto test strip Ql (U) Negative Negative [facility] Urine leukocyte esterase det ection by automated test stripOrdered By: Amor Judd on 06-21-2023 Leukocyte esterase Auto test strip Ql (U) Negative Negative [facility] Urobilinogen Auto test strip (U) [Mass/Vol]Ordered By: Amor Judd on 06-21-2023 Urobilinogen (U) [Mass/Vol] Normal mg/dL Normal [facility] WBC Auto (Bld) [#/Vol]Ordere d By: Amor Judd on 06-21-2023 WBC (Bld) [#/Vol] 8.9 10*3/uL 3.8-11.6 [facility] pH Auto test strip (U)Ordere d By: Amor Judd on 06-21-2023 pH (U) 7.0 [pH] 5.0-9.0 [facility] AKHIL Antinuclear Antibodieson 03-01-2023 Antinuclear Abs, IFA Positive Critically abnormal . [facility] Comment on above: Result Comment: Nega tive <1:80 Borderline 1:80 Positive >1:80 Performed By: #### C RP, ESR, CMP, CBC #### [address] #### AKHIL #### [facility] , Homogeneous Pattern 1:160 High . [facility] Comment on above: Result Comment: ICAP nomenclature: [id number] Performed By: #### C RP, ESR, CMP, CBC #### [facility] [address] #### AKHIL #### [facility] , Note 1 Normal . [facility] Comment on above: Result Comment: [...] titers Nucleosomes, Histones Drug-induced SLE Speckled Sm, [employer]AVE [employer] ASSEM[employer]ER, SCL-70, SLE,MCTD,PSS (diffuse form), SS-A/SS-B Sjogrens Nucleolar SCL-70, PM-1/SCL High titers Scleroderma, PM/DM Centromere Centromere PSS (limited form) w/Crest syndrome variable Nuclear Dot [id number] Primary Biliary Cirrhosis Nuclear GP210, Primary Biliary Cirrhosis Membrane rodger A,B,C Performed at: - [facility] [place] [id number] Maintenance Department Technician: Raul Mckeon PhD, Phone: [phone] PERFORMED BY: [place] [address] PATH[employer] LUKAS COLE M.D. Performed By: #### C RP, ESR, CMP, CBC #### [place] [address] [place] #### AKHIL #### [facility] , Alanine aminotransferase [En zymatic activity/volume] in Serum or PlasmaOrdered By: Amor Judd on 03-01-2023 ALT [Catalytic activity/Vol] 16 U/L 7-52 [facility] Albumin [Mass/volume] in Ser um or Plasma by Bromocresol green (BCG) dye binding methoOrdered By: Amor Judd on 03-01-2023 Albumin BCG dye [Mass/Vol] 4.6 g/dL 3.5-5.7 [facility] Alkaline phosphatase [Enzyma tic activity/volume] in Serum or PlasmaOrdered By: Amor Judd on 03-01-2023 ALP [Catalytic activity/Vol] 75 U/L 34-104 [facility] Aspartate aminotransferase [ Enzymatic activity/volume] in Serum or PlasmaOrdered By: Amor Judd on 03-01-2023 AST [Catalytic activity/Vol] 16 U/L 13-39 [facility] Basophils Auto (Bld) [#/Vol] Ordered By: Amor Judd on 03-01-2023 Basophils (Bld) [#/Vol] 0.0 10*3/uL 0.0-0.2 [facility] Basophils/100 WBC Auto (Bld) Ordered By: Amor Judd on 03-01-2023 Basophils/100 WBC (Bld) 0.3 % . [facility] Bilirubin.total [Mass/volume ] in Serum or PlasmaOrdered By: Amor Judd on 03-01-2023 Bilirubin [Mass/Vol] 0.3 mg/dL 0.3-1.0 [facility] C reactive protein [Mass/vol ume] in Serum or PlasmaOrdered By: Amor Judd on 03-01-2023 CRP [Mass/Vol] 1.9 mg/dL 0.0-0.5 [facility] C-Reactive Proteinon 023 C-Reactive Protein 1.9 mg/dL High 0.0-0.5 [facility] Comment on above: Result Comment: PERF ORMED BY: [place] [address] PATH[employer] LUKAS COLE M.D. Performed By: #### C RP, ESR, CMP, CBC #### [facility] [address] [place] [address] [place] #### AKHIL #### [facility] , Calcium [Mass/volume] in Ser um or PlasmaOrdered By: Amor Judd on 03-01-2023 Calcium [Mass/Vol] 9.7 mg/dL 8.6-10.3 [facility] Carbon dioxide, total [Moles /volume] in Serum or PlasmaOrdered By: Amor Judd on 03-01-2023 CO2 [Moles/Vol] 26.7 mmol/L 21.0-31.0 [facility] Chloride [Moles/volume] in S tamika or PlasmaOrdered By: Amor Judd on 03-01-2023 Chloride [Moles/Vol] 104 mmol/L 98-107 [facility] Complete Blood Count Auto Di ffon 03-01-2023 Basophils (Bld) [#/Vol] 0.0 10*3/uL Normal 0.0-0.2 [facility] Comment on above: Performed By: #### C RP, ESR, CMP, CBC #### [place] [address] [place] #### AKHIL #### [facility] , Basophils/100 WBC (Bld) 0.3 % Normal . T jamaal [facility] Comment on above: Performed By: #### C RP, ESR, CMP, CBC #### [place] [address] [place] #### AKHIL #### [facility] , Eosinophils (Bld) [#/Vol] 0.1 10*3/uL Normal 0.0-0.45 [facility] Comment on above: Performed By: #### C RP, ESR, CMP, CBC #### [place] [address] [place] #### AKHIL #### [facility] , Eosinophils/100 WBC (Bld) 0.6 % Normal . [facility] Comment on above: Performed By: #### C RP, ESR, CMP, CBC #### [place] [address] [place] #### AKHIL #### [facility] , Erythrocyte distribution width (RBC) [Ratio] 13.0 % Normal 11.9-15.3 [facility] Comment on above: Performed By: #### C RP, ESR, CMP, CBC #### [place] [address] [place] #### AKHIL #### [facility] , Hematocrit (Bld) [Volume fraction] 41.0 % Normal 34.0-46.4 [facility] Comment on above: Performed By: #### C RP, ESR, CMP, CBC #### [address] #### AKHIL #### [facility] , Hemoglobin (Bld) [Mass/Vol] 14.1 g/dL Normal 11.8-15.4 [facility] Comment on above: Performed By: #### C RP, ESR, CMP, CBC #### [place] [address] [place] #### AKHIL #### [facility] , Lymphocytes (Bld) [#/Vol] 2.4 10*3/uL Normal 1.00-4.8 [facility] Comment on above: Performed By: #### C RP, ESR, CMP, CBC #### [address] #### AKHIL #### [facility] , Lymphocytes/100 WBC (Bld) 25.6 % Normal . [facility] Comment on above: Performed By: #### C RP, ESR, CMP, CBC #### [address] #### AKHIL #### [facility] , MCH (RBC) [Entitic mass] 28.9 pg Normal 24.7-34.3 [facility] Comment on above: Performed By: #### C RP, ESR, CMP, CBC #### [place] [address] [place] #### AKHIL #### [facility] , MCV (RBC) [Entitic vol] 84.0 fL Normal 80-100 [facility] Comment on above: Performed By: #### C RP, ESR, CMP, CBC #### [place] [address] [place] #### AKHIL #### [facility] , Mean Corpuscular HGB Conc 34.4 g/dL Normal 32.0-35.0 [facility] Comment on above: Performed By: #### C RP, ESR, CMP, CBC #### [address] #### AKHIL #### [facility] , Monocytes (Bld) [#/Vol] 0.4 10*3/uL Normal 0.0-0.8 [facility] Comment on above: Performed By: #### C RP, ESR, CMP, CBC #### [place] [address] [place] #### AKHIL #### [facility] , Monocytes/100 WBC (Bld) 4.6 % Normal . [facility] Comment on above: Performed By: #### C RP, ESR, CMP, CBC #### [address] #### AKHIL #### [facility] , Neutrophils (Bld) [#/Vol] 6.4 10*3/uL Normal 1.8-7.7 [facility] Comment on above: Performed By: #### C RP, ESR, CMP, CBC #### [place] [address] [place] #### AKHIL #### [facility] , Neutrophils/100 WBC (Bld) 68.9 % Normal . [facility] Comment on above: Performed By: #### C RP, ESR, CMP, CBC #### [place] [address] [place] #### AKHIL #### [facility] , NRBC% 0.2 /100{WBC} Normal 0-0.5 [facility] Comment on above: Performed By: #### C RP, ESR, CMP, CBC #### [place] [address] [place] #### AKHIL #### [facility] , Platelet mean volume (Bld) [Entitic vol] 7.9 fL Normal 6.3-10.7 [facility] Comment on above: Performed By: #### C RP, ESR, CMP, CBC #### [address] #### AKHIL #### [facility] , Platelets (Bld) [#/Vol] 262 10*3/uL Normal 150-450 [facility] Comment on above: Performed By: #### C RP, ESR, CMP, CBC #### [address] #### AKHIL #### [facility] , RBC (Bld) [#/Vol] 4.88 10*6/uL Normal 3.60-5.00 [facility] Comment on above: Performed By: #### C RP, ESR, CMP, CBC #### [address] #### AKHIL #### [facility] , WBC (Bld) [#/Vol] 9.3 10*3/uL Normal 3.8-11.6 [facility] Comment on above: Performed By: #### C RP, ESR, CMP, CBC #### [place] [address] [place] #### AKHIL #### [facility] , Comprehensive Metabolic Pane aydee 03-01-2023 Albumin [Mass/Vol] 4.6 g/dL Normal 3.5-5.7 [facility] Comment on above: Performed By: #### C RP, ESR, CMP, CBC #### [address] #### AKHIL #### [facility] , Albumin/Globulin [Mass ratio] 1.7 {ratio} Normal [facility] Comment on above: Performed By: #### C RP, ESR, CMP, CBC #### [address] #### AKHIL #### [facility] , ALP [Catalytic activity/Vol] 75 U/L Normal 34-104 [facility] Comment on above: Performed By: #### C RP, ESR, CMP, CBC #### [place] [address] [place] #### AKHIL #### [facility] , ALT [Catalytic activity/Vol] 16 U/L Normal 7-52 [facility] Comment on above: Performed By: #### C RP, ESR, CMP, CBC #### [address] #### AKHIL #### [facility] , Anion gap [Moles/Vol] 13.1 mmol/L Normal 6.0-15.[address] [facility] Comment on above: Performed By: #### C RP, ESR, CMP, CBC #### [address] #### AKHIL #### [facility] , AST [Catalytic activity/Vol] 16 U/L Normal 13-39 [facility] Comment on above: Performed By: #### C RP, ESR, CMP, CBC #### [place] [address] [place] #### AKHIL #### [facility] , Bilirubin [Mass/Vol] 0.3 mg/dL Normal 0.3-1.0 [facility] Comment on above: Performed By: #### C RP, ESR, CMP, CBC #### [place] [address] [place] #### AKHIL #### [facility] , Calcium [Mass/Vol] 9.7 mg/dL Normal 8.6-10.3 [facility] Comment on above: Performed By: #### C RP, ESR, CMP, CBC #### [place] [address] [place] #### AKHIL #### [facility] , Chloride [Moles/Vol] 104 mmol/L Normal 98-107 [facility] Comment on above: Performed By: #### C RP, ESR, CMP, CBC #### [place] [address] [place] #### AKHIL #### [facility] , CO2 [Moles/Vol] 26.7 mmol/L Normal 21.0-31.0 [facility] Comment on above: Performed By: #### C RP, ESR, CMP, CBC #### [place] [address] [place] #### AKHIL #### [facility] , Creatinine [Mass/Vol] 0.95 mg/dL Normal 0.60-1.20 [facility] Comment on above: Performed By: #### C RP, ESR, CMP, CBC #### [place] [address] [place] #### AKHIL #### [facility] , GFR/1.73 sq M.predicted MDRD (S/P/Bld) [Vol rate/Area] mL/min/{1.73_m2} Normal [facility] Comment on above: Performed By: #### C RP, ESR, CMP, CBC #### [place] [address] [place] #### AKHIL #### [facility] , Globulin (S) [Mass/Vol] 2.7 g/dL Normal [facility] Comment on above: Performed By: #### C RP, ESR, CMP, CBC #### [address] #### AKHIL #### [facility] , Glucose [Mass/Vol] 101 mg/dL High 70-100 [facility] Comment on above: Result Comment: [place] Glucose Reference Range is dependent on time and content of last meal. Glucose of more than 200 mg/dL in a nonstressed, ambulatory subject supports the diagnosis of Diabetes Mellitus. ADA recommended reference range Performed By: #### C RP, ESR, CMP, CBC #### [place] [address] [place] #### AKHIL #### [facility] , Potassium [Moles/Vol] 3.8 mmol/L Normal 3.5-5.1 [facility] Comment on above: Performed By: #### C RP, ESR, CMP, CBC #### [place] [address] [place] #### AKHIL #### [facility] , Protein [Mass/Vol] 7.3 g/dL Normal 6.4-8.9 [facility] Comment on above: Performed By: #### C RP, ESR, CMP, CBC #### [place] [address] [place] #### AKHIL #### [facility] , Sodium [Moles/Vol] 140 mmol/L Normal 136-145 [facility] Comment on above: Performed By: #### C RP, ESR, CMP, CBC #### [place] [address] [place] #### AKHIL #### [facility] , Urea nitrogen [Mass/Vol] 10 mg/dL Normal 7-25 [facility] Comment on above: Performed By: #### C RP, ESR, CMP, CBC #### [place] [address] [place] #### AKHIL #### [facility] , Creatinine [Mass/volume] in Serum or PlasmaOrdered By: Amor Judd on 03-01-2023 Creatinine [Mass/Vol] 0.95 mg/dL 0.60-1.20 [facility] Eosinophils Auto (Bld) [#/Vo l]Ordered By: Amor Judd on 03-01-2023 Eosinophils (Bld) [#/Vol] 0.1 10*3/uL 0.0-0.45 [facility] Eosinophils/100 WBC Auto (Bl d)Ordered By: Amor Judd on 03-01-2023 Eosinophils/100 WBC (Bld) 0.6 % . [facility] Erythrocyte Sedimentation Ra gloria 03-01-2023 ESR (Bld) [Velocity] 18 mm/h Normal 0-19 [facility] Comment on above: Result Comment: PERF ORMED BY: [place] [address] [employer] LUKAS COLE M.D. Performed By: #### C RP, ESR, CMP, CBC #### [address] #### AKHIL #### [facility] , Erythrocyte distribution wid th Auto (RBC) [Ratio]Ordered By: Amor Judd on 03-01-2023 Erythrocyte distribution width (RBC) [Ratio] 13.0 % 11.9-15.3 [facility] Erythrocyte sedimentation ra te by Photometric methodOrdered By: Amor Judd on 03-01-2023 ESR Photometric method (Bld) [Velocity] 18 mm/hr 0-19 [facility] Globulin Calc (S) [Mass/Vol] Ordered By: Amor Judd on 03-01-2023 Globulin (S) [Mass/Vol] 2.7 g/dL [facility] Glucose [Mass/volume] in Ser um or PlasmaOrdered By: Amor Judd on 03-01-2023 Glucose [Mass/Vol] 101 mg/dL 70-100 [facility] Comment on above: ADA recommended refe rence rangeRandom Glucose Reference Range is dependent on time and content of last meal. Glucose of more than 200 mg/dL in a nonstressed, ambulatory subject supports the diagnosis of Diabetes Mellitus. Hematocrit Auto (Bld) [Volum e fraction]Ordered By: Amor Judd on 03-01-2023 Hematocrit (Bld) [Volume fraction] 41.0 % 34.0-46.4 [facility] Hemoglobin [Mass/volume] in BloodOrdered By: Amor Judd on 03-01-2023 Hemoglobin (Bld) [Mass/Vol] 14.1 g/dL 11.8-15.4 [facility] Leukocytes [#/volume] correc francisco j for nucleated erythrocytes in Blood by Automated counOrdered By: Amor Judd on 03-01-2023 WBC corrected for nucl RBC Auto (Bld) [#/Vol] 9.3 10*3/uL 3.8-11.6 [facility] Lymphocytes Auto (Bld) [#/Vo l]Ordered By: Amor Judd on 03-01-2023 Lymphocytes (Bld) [#/Vol] 2.4 10*3/uL 1.00-4.8 [facility] Lymphocytes/100 WBC Auto (Bl d)Ordered By: Amor Judd on 03-01-2023 Lymphocytes/100 WBC (Bld) 25.6 % . [facility] MCH Auto (RBC) [Entitic mass ]Ordered By: Amor Judd on 03-01-2023 MCH (RBC) [Entitic mass] 28.9 pg 24.7-34.3 [facility] MCHC Auto (RBC) [Mass/Vol]Or dered By: Amor Judd on 03-01-2023 MCHC (RBC) [Mass/Vol] 34.4 g/dL 32.0-35.0 [facility] MCV Auto (RBC) [Entitic vol] Ordered By: Amor Judd on 03-01-2023 MCV (RBC) [Entitic vol] 84.0 fL 80-100 [facility] Monocytes Auto (Bld) [#/Vol] Ordered By: Amor Judd on 03-01-2023 Monocytes (Bld) [#/Vol] 0.4 10*3/uL 0.0-0.8 [facility] Monocytes/100 WBC Auto (Bld) Ordered By: Amor Judd on 03-01-2023 Monocytes/100 WBC (Bld) 4.6 % . [facility] Neutrophils Auto (Bld) [#/Vo l]Ordered By: Amor Judd on 03-01-2023 Neutrophils (Bld) [#/Vol] 6.4 10*3/uL 1.8-7.7 [facility] Neutrophils/100 WBC Auto (Bl d)Ordered By: Amor Judd on 03-01-2023 Neutrophils/100 WBC (Bld) 68.9 % . [facility] No Panel InformationOrdered By: Amor Judd on 03-01-2023 Estimated GFR (CKD-EPI) > 60.0 mL/Min [facility] Creatinine Clearance (Chem N/A [facility] Nucleated erythrocytes [Pres ence] in Blood by Automated countOrdered By: Amor Judd on 03-01-2023 Nucleated RBC Auto Ql (Bld) 0.2 /100{WBC} 0-0.5 [facility] Platelet mean volume Auto (B ld) [Entitic vol]Ordered By: Amor Judd on 03-01-2023 Platelet mean volume (Bld) [Entitic vol] 7.9 fL 6.3-10.7 [facility] Platelets Auto (Bld) [#/Vol] Ordered By: Amor Judd on 03-01-2023 Platelets (Bld) [#/Vol] 262 10*3/uL 150-450 [facility] Potassium [Moles/volume] in Serum or PlasmaOrdered By: Amor Judd on 03-01-2023 Potassium [Moles/Vol] 3.8 mmol/L 3.5-5.1 [facility] Protein [Mass/volume] in Ser um or PlasmaOrdered By: Amor Judd on 03-01-2023 Protein [Mass/Vol] 7.3 g/dL 6.4-8.9 [facility] RBC Auto (Bld) [#/Vol]Ordere d By: Amor Judd on 03-01-2023 RBC (Bld) [#/Vol] 4.88 10*6/uL 3.60-5.00 [facility] Serum or plasma albumin/glob ulin mass ratioOrdered By: Amor Judd on 03-01-2023 Albumin/Globulin [Mass ratio] 1.7 {ratio} [facility] Serum or plasma anion gap de terminationOrdered By: Amor Judd on 03-01-2023 Anion gap [Moles/Vol] 13.1 mmol/L 6.0-15.0 [facility] Sodium [Moles/volume] in Ser um or PlasmaOrdered By: Amor Judd on 03-01-2023 Sodium [Moles/Vol] 140 mmol/L 136-145 [facility] Urea nitrogen [Mass/volume] in Serum or PlasmaOrdered By: Amor Judd on 03-01-2023 Urea nitrogen [Mass/Vol] 10 mg/dL 7-25 [facility] WBC Auto (Bld) [#/Vol]Ordere d By: Amor Judd on 03-01-2023 WBC (Bld) [#/Vol] 9.3 10*3/uL 3.8-11.6 [facility] XR hand BI 2Von 03-01-2023 XR hand BI 2V [facility] [address] XRay Report Signed Patient: Cinthya Han MR#: [id number] [birth year] : 1990 Acct:[id number] Age/Sex: 32 / F ADM Date: 03/01/23 Loc: [facility] Room: Type: [facility] Attending Dr: Amor Judd MD Copies to: [...] 2V IMPRESSION: Unremarkable exam Impression dictated by: Sahhid Byers M.D.03/01/2023 4:11 PM Dictation Location: [place] [address] Transcribed By: [facility] 03/01/23 161 Dictated By: Shahid Byers DO 03/01/23 161 Signed By: 03/01/23 161 Normal [facility] XR thoracic spine 3V*on XR thoracic spine 3V* [facility] [address] [address] XRay Report Signed Patient: Cinthya Han MR#: [id number] [birth year] : 1990 Acct:[id number] Age/Sex: 32 / F ADM Date: 03/01/23 Loc: [facility] Room: Type: [facility] Attending Dr: Amor Judd MD Copies to: [...] Shahid Byers M.D.03/01/2023 4:11 PM Dictation Location: [place] [address] Transcribed By: [facility] 03/01/23 161 Dictated By: Shahid Byers DO 03/01/23 161 Signed By: 03/01/23 1611 Normal [facility] Basic Metabolic PanelOrdered By: Teresa Pérez on 04-22-2021 Anion gap [Moles/Vol] 12 mmol/L 9 - 17 mmol/L [employer] Phone: Calcium [Mass/Vol] 9.4 mg/dL 8.6 - 10. 4 mg/dL [employer] Phone: Chloride [Moles/Vol] 102 mmol/L 98 - 10 7 mmol/L [employer] Phone: CO2 [Moles/Vol] 24 mmol/L 20 - 31 mmol/L [employer] Phone: Creatinine [Mass/Vol] 0.8 mg/dL 0.50 - 0.90 mg/dL [facility] Phone: GFR >60 >60 mL/min [place] Phone: GFR Non- >60 >60 mL/min [employer] Phone: GFR/1.73 sq M.predicted MDRD (S/P/Bld) [Vol rate/Area] [employer] Phone: Comment on above: Average GFR for 20-2 9 years old: 116 mL/min/1.73sq m Chronic Kidney Disease: <60 mL/min/1.73sq m Kidney failure: <15 mL/min/1.73sq m eGFR calculated using average adult body mass. Additional eGFR calculator available at: http://www.[employer]/multiple_crcl_2012.htm GFR/1.73 sq M.predicted MDRD (S/P/Bld) [Vol rate/Area] NOT REPORTED [facility] Phone: Glucose [Mass/Vol] 98 mg/dL 70 - 99 mg/dL [facility] Phone: Interpretation and review of laboratory results Abnormal [facility] Phone: Potassium [Moles/Vol] 3.6 mmol/L Low 3.7 - 5.3 mmol/L [employer] Phone: Sodium [Moles/Vol] 138 mmol/L 135 - 144 mmol/L [facility] Phone: Urea nitrogen (BldV) [Mass/Vol] 10 mg/dL 6 - 20 mg/dL [facility] Phone: Urea nitrogen/Creatinine (Bld) [Mass ratio] 13 [employer] Phone: CBC Auto DifferentialOrdered By: Teresa Pérez on 04-22-2021 Absolute Eos # 0.10 [employer] [facility] Work Phone: Absolute Immature Granulocyte NOT REPORTED [employer] Phone: Absolute Lymph # 2.00 [facility] Work Phone: Absolute [place] # 0.40 [facility] Work Phone: Basophils (Bld) [#/Vol] 0.00 10*3/uL [employer] Phone: Basophils/100 WBC (Bld) 0 % 0 - 2 % [employer] Phone: Differential Type YES [employer] Phone: Eosinophils/100 WBC (Bld) 1 % 0 - 5 % [employer] Phone: Hematocrit (Bld) [Volume fraction] 40.1 % 36 - 46 % [employer] Phone: Hemoglobin.gastrointesti nal spec 1 Ql (Stl) 13.9 g/dL 12.0 - 16.0 g/dL [employer] Phone: Immature Granulocytes NOT REPORTED 0 % [employer] Phone: Lymphocytes/100 WBC (Bld) 23 % 15 - 40 % [employer] Phone: MCH (RBC) [Entitic mass] 29.0 pg 26 - 34 pg [employer] Phone: MCHC (RBC) [Mass/Vol] 34.5 g/dL 31 - 37 g/dL [facility] [employer] Phone: MCV (RBC) [Entitic vol] 84.0 fL 80 - 100 fL [employer] Phone: Monocytes/100 WBC (Bld) 4 % 4 - 8 % [employer] Phone: NRBC Automated NOT REPORTED per 100 WBC [employer] Phone: Platelet distribution width (Bld) [Ratio] 12.4 % 12.1 - 15.2 % [employer] Phone: Platelet Estimate NOT REPORTED [employer] Phone: Platelet mean volume (Bld) [Entitic vol] NOT REPORTED 6.0 - 12.0 fL [employer] Phone: Platelets (Bld) [#/Vol] 286 10*3/uL [facility] Phone: RBC (Bld) [#/Vol] 4.77 10*6/uL 4.0 - 5.2 m/uL [employer] Phone: RBC (Bld) [#/Vol] NOT REPORTED [employer] Work Phone: Segmented neutrophils/100 WBC (Bld) 72 % 47 - 75 % [employer] Work Phone: Segs Absolute 6[employer] Work Phone: WBC (Bld) [#/Vol] 8.9 10*3/uL [employer] Phone: WBC (Bld) [#/Vol] NOT REPORTED [employer] Phone: MagnesiumOrdered By: Teresa Pérez on 04-22-2021 Magnesium [Mass/Vol] 2.1 mg/dL 1.6 - 2 .6 mg/dL [employer] Phone: No Panel InformationOrdered By: Teresa Pérez on 04-22-2021 [employer] Phone: TSH with ReflexOrdered By: Israel Pérez on 04-22-2021 TSH Qn 1.17 m[IU]/L [employer] Phone: Vitamin B12 & FolateOrdered By: Teresa Pérez on 04-22-2021 Cobalamin (Vitamin B12) [Mass/Vol] 441 pg/mL 232 - 1245 pg/mL [employer] Phone: Folate 11.2 ng/mL >4.8 [employer] Phone: [employer] Phone: Social History Date Type Detail Facility Start: 02-04-2023 Tobacco use panel [facility] [employer] Start: 03-04-2015 End: 04-22-2021 Tobacco smoking status NHIS Never smoker [facility] Start: 03-04-2015 End: 04-22-2021 Tobacco use and exposure Never used [employer] Start: 04-22-2021 End: 02-04-2023 Alcohol intake Current non-drinker of alcohol (finding) [employer] Phone: Start: 04-22-2021 End: 02-04-2023 Alcohol intake [employer] Phone: Start: 04-22-2021 History SDOH Financial 5 [employer] Phone: Start: 04-22-2021 History SDOH Food Worry 1 [employer] Phone: Start: 1990 Sex Assigned At Not on file [employer] Phone: Start: 1990 Sex Assigned At Female F [facility] How hard is it for y ou to pay for the very basics like food, housing, medical care, and heating Not hard at all [facility] (I/We) worried wheth er (my/our) food would run out before (I/we) got money to buy more. Never true [facility] At any time in the p ast 12 months, were you homeless or living in usp [including now]? No [facility] Evaluation note Note Date & Type Note Facility Evaluation note Diagnosis Paresthesia Disturbance of skin sensation Weight gain Abnormal weight gain Screening for cardiovascular condition Screening for other and unspecified cardiovascular conditions documented in this encounter [employer] Phone: Evaluation note Note Date & Type Note Facility Evaluation note No assessment information availa [facility] Work Phone: Summary Purpose Family History No Family History Records FoundNo Family History Records FoundNo Family History Records FoundNo Family History Records FoundNo Family History Records Found Advance Directives Documents on File Type Date Recorded Patient Hydrological Technical Officer Expl anation ACP-Advance Directive ACP-Power of Medical Information Specialist Advance Directive Response Recorded Date/ Time Advance Directives No [place] 7th, 2 023 2:18pm Advance Directive Response Recorded Date/ Time Advance Directives No March 05, 2023 9:09am Advance Directive Response Recorded Date/ Time Advance Directives No March 05, 2023 10:09am Chief Complaint and Reason for Visit Chief Complaint hand pain bilat /tho racic spine Chief Complaint Unknown Additional Source Comments INFORMATION SOURCE (unrecogn ized section and content) DATE CREATED AUTHOR 11/22/2018 [facility] DATE CREATED AUTHOR AUTHOR'S ORGANIZ ATION 07/24/2022 [facility] DATE CREATED AUTHOR AUTHOR'S ORGANIZ ATION 11/13/2023 [facility] DATE CREATED AUTHOR AUTHOR'S ORGANIZ ATION 12/01/2023 [facility] DATE CREATED AUTHOR AUTHOR'S ORGANIZ ATION 12/03/2023 [facility] EPIC Care Teams (unrecognized sec tion and content) Team Status: Active Member Role Status Dates Rhonda Limon MD Primary Care Provider Active Team Status: Inactive Member Role Status Dates Amor Judd MD Attending Provider Active Team Status: Inactive Member Role Status Dates Rhonda Limon MD Primary Care Provider Active Amor Judd MD Attending Provider Active Institution Librarian Relationship Specialty Start Date End Date Iain Velarde, ROCAEL [address] [place] [phone] PCP - General Family Nurse Practitioner 03/25/18 [...] BE BASED ON THE PRIMARY CLINICAL RECORDS. [facility] provides no warranty or guarantee of the accuracy or completeness of information in this document.
[2023-12-24 06:24] LABS: Basophils Percent Auto 0.4 % (0.2-2.0); Eosinophils Absolute Auto 0.1 10^3/uL (0.0-0.7); Eosinophils Percent Auto 1.8 % (0.9-7.0); Hematocrit 43.4 % (36.0-48.0); Hemoglobin 13.8 g/dL (12.0-16.0); Immature Granulocytes Abs Auto 0.01 10^3/uL (0.00-0.03); Immature Granulocytes Pct Auto 0.1 % (0.0-0.5); Lymphocytes Absolute Auto 2.2 10^3/uL (1.2-3.8); Lymphocytes Percent Auto 28.8 % (20.5-60.0); Mean Corpuscular HGB Conc 31.8 g/dL (29.9-35.2); Mean Corpuscular Hemoglobin 28.1 pg (26.7-34.0); Mean Corpuscular Volume 88.4 fL (81.0-99.0); Monocytes Absolute Auto 0.5 10^3/uL (0.3-0.8); Monocytes Percent Auto 6.9 % (1.7-12.0); Neutrophils Absolute Auto 4.7 10^3/uL (1.4-6.5); Platelet Count 206 10^3/uL (150-450); Red Blood Count 4.91 10^6/uL (4.20-5.40); Red Cell Distribution Width 12.3 % (11.0-15.0); White Blood Count 7.6 10^3/uL (4.0-11.0)
[2023-12-24 06:45] LABS: HCG Quantitative <1 mIU/mL
[2023-12-24] MEDS: LACTATED RINGER'S SOLUTION 1,000 ML 50 ML IV (06:56)
--- NOTE | 2023-12-24 09:07 | PM.ONB ---
Brief Operative Note Date of procedure: 12/24/23 Pre-op diagnosis general: desires permanent sterilization, aub Post-op diagnosis: other (lt ovarian cyst, 5cm in size) Procedure: NAME OF PROCEDURE: robotic assisted Laparoscopic bilateral salpingectomy, with Dianne endometrial ablation with hysteroscopy with lt ovarian cystectomy PROCEDURE: The patient was taken back to the OR where she was prepped and draped in the normal sterile fashion after being placed in the dorsal lithotomy position, after being placed under general anesthesia without difficulty. a weighted speculum was then placed into the vagina. Pap and endometrial bx were performed without difficultyThe anterior lip was grasped with a single tooth tenaculum. The patient was then sounded to approximatley 9cm. The patient was gently sounded using Hegar dilators and the hysteroscope was passed through the cervix into the uterus where both ostia were seen. No gross evidence of polyps, fibroids or malignancy. The cervical length was noted to be 4cm. The Dianne ablation apparatus was set to approximately 5cm in length. This was placed in through the cervix and into the uterus. After the seal was tested, at that time the total ablation of 120 seconds was performed with the Dianne without difficulty. All instruments were removed from the vagina. A wet sponge stick was placed into the patient's vagina. Attention was then turned to the patient's abdomen, where a scalpel was used to make a small infraumbilical incision. The S retractors were then used to dissect the underlying layers until the fascia could be seen. The fascia was then grasped with Deborah clamps and tented up. A knife was then used to make a small incision to the fascia. The muscle was identified, at that time two sutures of #0 Vicryl on a GI needlewas then used and placed through the fascia. The peritoneum was then identified and entered bluntly. The 10-4 Jade was then placed into the patient's abdomen. This was confirmed with direct visualization of the bowel, using the laparoscope. The patient's abdomen was then insufflated using approximately 4 liters of CO2 gas. Survey of the patient's abdomen demonstrated normal appearing ovaries, uterus and tubes. A second and third lateral robotic ports, which was 8mm in size, was then placed laterally after incision was made in the skin under direct visualization. the robotic arms were engaged. The patient's tube on the patient's right side was identified. The tube was then tented up using a grasper. The ligasure was used to transect and coagulate the mesosalpingx from the fimbriated end to the insertion at the uterus, the tube was amputated and removed in its entirety.? lt ovarian cystectomy performed using a vessel sealer Excellent hemostasis was noted. ?This was performed on the contralateral sideas well. The lateral ports were then moved under direct visualization with excellent hemostasis. The abdomen was deinsufflated. All instruments were removed from the patient's abdomen. The fascia was closed using the #0 Vicryl on GI needle. The skin was closed using 4-0 Vicryl subcuticularly. All instruments were removed from the patient's vagina as well. The patient was taken out of the dorsal lithotomy position and placed in the supine position and taken to recovery in stable condition. Sponge, lap and needle counts were correct x2. ??? Anesthesia: GURJIT Surgeon: Doe Krishna Machine Joint Cutter: Flory Willingham Estimated blood loss (mL): 5 Pathology: other (lt ovarian cyst wall, bilateral tubes) Condition: stable Disposition: PACU Urinary Catheter Management Urinary Catheter Management Urethral: Cath placed during this visit: no
[2023-12-24] MEDS: LACTATED RINGER'S SOLUTION 1,000 ML 150 ML IV (09:51)
--- NOTE | 2023-12-24 11:05 | PC.NURSE ---
1100: pt ambulates to bathroom with minimal assistance,voids without difficulty.
== END 2023-12-24 11:15 | disposition home or self-care (01) ==
PROVIDERS: PCP Nurse Practitioner Family; Visit Provider Obstetrics & Gynecology
PROC: (CPT 840; principal; 2023-12-24 07:30)
PROC: (CPT 840; 2023-12-24 07:30)
DX: Z30.2 Encounter for sterilization (principal); N93.9 Abnormal uterine and vaginal bleeding, unspecified; R10.2 Pelvic and perineal pain; N83.202 Unspecified ovarian cyst, left side; N83.8 Other noninflammatory disorders of ovary, fallopian tube and broad ligament; N92.1 Excessive and frequent menstruation with irregular cycle; K21.9 Gastro-esophageal reflux disease without esophagitis; L40.50 Arthropathic psoriasis, unspecified
CPT/HCPCS: 58563; 58661; 58662; 36415; 84702; 85025; 88302; J1094; J1170; J2704